=== PATIENT | female | born 1955 | race Caucasian/White ===

== ENCOUNTER → 2018-03-03 10:41 | Outpatient (CLI) | payer OTHER, SELFPAY ==
--- NOTE | 2018-03-03 | DI.RAD.S_ITS ---
PROCEDURE: XR HIP W PEL IF DONE LT 2V INDICATIONS: LEFT HIP PAIN TECHNIQUE: AP pelvis with lateral view(s) of the left hip(s). COMPARISON: [facility], [place], [id number] W PEL IF PERFORMED, 02/18/2017, 11:50. FINDINGS: Bones: No fractures or dislocations. Pelvic ring appears intact. No suspicious bony lesions. The right hip prostheses appear intact. Arthritic disease in the left hip shows considerable interval progression in severity, now near [id number] appearance with increased sclerosis and subcortical cystic changes. Marginal bone spurs are present over the left acetabulum and femoral head. Soft tissues: The visualized bowel gas pattern is normal. No suspicious soft tissue calcifications. IMPRESSION: 1. Considerable progression in degree of left hip joint degeneration, now with third degree. 2. Status post total right hip arthroplasty. Dictated by: Jim Cowan M.D. on 03/03/2018 at 11:30 Approved by: Jim Cowan M.D. on 03/03/2018 at 11:32
== END ==
PROVIDERS: PCP Family Medicine; Visit Provider Family Medicine
DX: M16.12 Unilateral primary osteoarthritis, left hip (principal); M25.552 Pain in left hip; Z96.641 Presence of right artificial hip joint
CPT/HCPCS: 73502

== ENCOUNTER → 2018-04-18 11:02 | Outpatient (CLI) | payer OTHER, SELFPAY ==
[2018-04-18 12:20] LABS: Add Manual Diff / Slide Review NO; Basophils Percent Auto 0.8 % (0-2); Eosinophils Percent Auto 2.3 % (2-4); Hematocrit 36.8 % (36-46); Hemoglobin 12.8 g/dL (12.0-16.0); Lymphocytes Percent Auto 37.8 % (25-40); Mean Corpuscular HGB Conc 34.8 % (30-36); Mean Corpuscular Hemoglobin 30.6 PG (26-34); Mean Corpuscular Volume 87.8 fL (80-100); Monocytes Percent Auto 6.3 % (3-14); Neutrophils Absolute Auto 3000 /uL (3000-5900); Neutrophils Percent Auto 52.8 % (50-75); Platelet Count 211 X10^3/uL (150-400); Red Cell Distribution Width 12.9 % (11.6-14.8); White Blood Cell Count 5.7 X10^3/uL (4.5-11.0)
[2018-04-18 12:42] LABS: Hemoglobin A1C% w Est Avg Glu 5.3 % (4.0-6.0)
[2018-04-18 12:49] LABS: BUN Creatinine Ratio 33.8 (6-22); Blood Urea Nitrogen 27 mg/dL (7-17); Calcium 9.2 mg/dL (8.4-10.2); Carbon Dioxide 28 mmol/L (22-32); Chloride 108 mmol/L (98-107); Estimated Glomerular Filt Rate > 60.0 mL/min (>60); Glucose 90 mg/dL (80-110); HEMOLYSIS < 15 (0-50); Potassium 4.1 mmol/L (3.4-5.1); Sodium 144 mmol/L (137-145)
[2018-04-18 13:06] LABS: Appearance Urine UA CLEAR; Bilirubin Urine UA NEGATIVE (NEGATIVE); Color Urine UA YELLOW; Glucose Urine UA NEGATIVE (Normal); Ketones Urine UA NEGATIVE (NEGATIVE); Leukocyte Esterase Urine UA TRACE (NEGATIVE); Nitrite Urine UA Negative (Negative); Occult Blood Urine UA TRACE-LYSED (Negative); Protein Urine UA NEGATIVE (Negative); Urobilinogen Urine UA 0.2 E.U./dL (0.2)
[2018-04-18 13:44] LABS: RBC Urine 0-1/HPF (0-5/HPF); Squamous Epithelial Cell Urine 1-5 /HPF; WBC Urine 1-5/HPF (0-5/HPF)
[2018-04-18 13:45] LABS: Amorphous Sediment Urine 1+; Bacteria Urine Occasional (0-1); Culture Indicated Urine Specimen Cultured; Mucus Urine 2+ (Negative)
== END ==
PROVIDERS: PCP Family Medicine; Visit Provider Orthopaedic Surgery
DX: Z01.818 Encounter for other preprocedural examination (principal); Z01.812 Encounter for preprocedural laboratory examination; N39.9 Disorder of urinary system, unspecified; R73.09 Other abnormal glucose
CPT/HCPCS: 36415; 80048; 81001; 83036; 85025; 87086; 93005; 93010

== ENCOUNTER 2018-07-05 11:50 | Inpatient (IN) | payer OTHER, SELFPAY ==
[2018-06-22 10:14] VITALS: BMI 38.0
[2018-07-05] VITALS (12 sets, daily range): BP systolic 97–197; BP diastolic 42–89; PULSE 58–70; RESP 10–18; TEMP 36.1–36.9; O2SAT 93–100; BMI 38.0
--- NOTE | 2018-07-05 | DI.RAD.S_ITS ---
PROCEDURE: XR HIP W PEL IF DONE LT 2V INDICATIONS: POST OPERATIVE TOTAL LEFT HIP TECHNIQUE: 2 views of the hip were acquired. COMPARISON: [facility], TAMARA, XR HIP W PEL IF DONE LT 2V, 03/03/2018, 10:28. [facility], [place], [id number] W PEL IF PERFORMED, 02/18/2017, 11:50. FINDINGS: Multilevel degenerative changes of the lumbar spine are noted. Pelvic phleboliths are unchanged from prior exam. Right total hip arthroplasty is unchanged from prior exam. Interval placement of a left total hip arthroplasty without evidence of acute hardware complication. A small volume of subcutaneous emphysema is noted adjacent the proximal left femur and left hip joint consistent with postsurgical change. IMPRESSION: Interval placement of a left total hip arthroplasty without evidence of acute hardware complication. Dictated by: James Wills M.D. on 07/05/2018 at 18:23 Approved by: James Wills M.D. on 07/05/2018 at 18:24
--- NOTE | 2018-07-05 12:10 | DI.RAD.S_ITS ---
PROCEDURE: XR PELVIS 1-2V INDICATIONS: post op TECHNIQUE: Intra-operative views of the pelvis and hip acquired. COMPARISON: [facility], [place], XR PELVIS WITH LATERAL HIP LEFT, 06/27/2018, 11:26. FINDINGS: Bones: Intraoperative devices prior to placement of arthroplasty prostheses are in expected positions. No fractures or suspicious bony lesions. Soft tissues: Overlying surgical retractors are present, along with other intraoperative changes. IMPRESSION: Intraoperative images obtained during the patient's left hip arthroplasty. No fractures are evident. Dictated by: Gabriel García M.D. on 07/05/2018 at 15:53 Approved by: Gabriel García M.D. on 07/05/2018 at 15:54
[2018-07-05] MEDS: ACETAMINOPHEN 325 MG TABLET 975 MG PO ×2 (12:31→20:05)
[2018-07-05] MEDS: PREGABALIN 75 MG CAPSULE PO (12:33)
[2018-07-05] MEDS: MELOXICAM 7.5 MG TABLET 15 MG PO (12:33)
[2018-07-05] MEDS: LACTATED RINGERS 1,000 ML 42 ML IV ×2 (12:33→16:13)
[2018-07-05] MEDS: VANCOMYCIN 1,000 MG/200 ML FROZ.PIGGY 200 MG IV (13:28)
--- NOTE | 2018-07-05 13:44 | PM.PREOP ---
Pre-operative Note Interval Note Pre-op Check: Yes History & Physical Reviewed by Physician and Yes Exam Performed Changes: No
--- NOTE | 2018-07-05 13:44 | PM.OP.1 ---
Operative Date/Time/Diagnoses Date of procedure: 07/05/18 Time of procedure: 15:57 Pre-op diagnosis: left hip arthritis Post-op diagnosis: same Procedure & Clinicians Procedure: Left total hip arthroplasty Same procedure as scheduled: Yes Indications: The patient has had progressively worsening left hip pain with radiographic changes consistent with arthritis. Non-operative management has failed and the patient has requested total hip replacement. The risks, benefits and alternatives to surgery were discussed with the patient prior to proceeding. Risks discussed included, but were not limited to, failure to relieve pain, leg length discrepancy, dislocation, stiffness, infection, nerve damage, deep venous thrombosis, pulmonary embolism, stroke, coma, heart attack, permanent paralysis and , as well as the potential need for eventual revision of the prosthetic. Surgeon: Merly Christianson Printing Machine Operator: Shameka Cruz Click Yes if Unassisted: No Anesthesia Type: General and Spinal Operative Notes Findings: Severe left hip osteoarthritis, adequate stability Closure Type: primary Specimen(s): none sent Implants & Drains: Christianson [employer] Nephew R3 52, neutral poly liner by 36 single 20 mm screw, +0 head, 6 standard offset anthology Applied: drain(s) Estimated Blood Loss (mL): 300 Blood products transfused: none Procedure in detail: The patient was seen in the pre-operative area, where the patient identified the left hip as the operative site and this was marked with my initials. The patient received pre-operative antibiotics and was taken to the operating room and placed on the operative table in the right lateral decubitus position after satisfactory anesthesia. A maritime pilot out was performed. The left leg was prepared from the ankle to the iliac crest with ChloroPrep in the usual fashion and draped through sterile drapes. The hip was approached through an approximately 20 cm incision centered over the greater trochanter and curving gently posteriorly as it went proximally. This was carried sharply to the fascia viet, which was divided and retracted with a self retaining retractor. The trochanteric bursa was excised with care being taken to avoid the sciatic nerve, which was identified and protected throughout the case. The short external rotators were incised and the capsulomuscular flap was raised and tagged for later repair. The hip was dislocated, and a femoral neck osteotomy performed approximately 15 mm above the lesser trochanter. Retractors were placed around the femur. The canal was opened with a box cutting osteotome, followed by a T handled reamer and a lateralizing reamer. The chili pepper broach was then used, followed by sequential broaching until there was good stability of the broach in the femur. Retractors were placed to expose the acetabulum. The labrum and central soft tissues were removed. Reaming was performed initially going up in 2 mm increments, then 1 mm increments until good bite was obtained with an odd sized reamer. The cup 1 mm larger than the last reamer was then inserted using the appropriate anteversion guides. A trial neutral liner was placed. The broach was placed in the canal. A trial head and neck were then placed and the hip relocated and checked for leg length and stability. An intraoperative film confirmed the component position and no evidence of fracture. The patient was stable in the position of sleep, of squatting, and could be put through a range of motion with 45 degrees internal rotation without dislocation. At 90 degrees flexion, internal rotation to 60 ? was possible before dislocation. This was felt to be satisfactory and the appropriate components were opened, and the trials were removed. As the hip was dislocated the femoral component caught the edge of the acetabulum and the acetabulum shifted. The trial components were removed and the acetabulum was reinserted and stabilized with a screw. We did a repeat trial reduction to reconfirm stability and took a 2nd intraoperative x-ray to confirm the position of the components. She had good stability as noted above. The acetabulum was specifically checked and noted to be stable. The acetabular liner was impacted into position. The final stem was then impacted into the prepared femoral canal. A brief Betadine soak was performed while trialing with head options. The hip was meticulously irrigated with normal saline. Finally the femoral head was impacted onto the stem. The acetabulum was cleared of all material and the hip relocated one final time. The capsulomuscular flap was then repaired to the greater trochanter though an awl hole using the tag sutures. The short external rotators were repaired with braided polyethylene suture. A deep drain was placed and brought out anteriorly. The fascia viet was closed with braided polyethylene suture. The subcutaneous layer was closed with barbed sutures and skin clips. A august dressing was applied and the patient was taken to recovery having tolerated the procedure well. Complications: none Condition: stable Disposition: Acute Care Plan for aftercare: The patient will be maintained on a standard total hip replacement protocol with weight bearing as tolerated and posterior hip precautions. The patient will receive Aspirin and sequential compression devices for DVT prophylaxis. The patient will be discharged home when safe for the home environment.
[2018-07-05] MEDS: CEFAZOLIN 2 GM/100 ML FROZ.PIGGY IV ×2 (14:23→22:23)
--- NOTE | 2018-07-05 14:57 | SUR.OPER ---
Lateral on padded OR bed. Gel axillary roll. Arms secured on padded armboard with pillow supporting top arm. Padded hip positioner braces x4 - anterior and posterior chest and pelvis. Additional gel pad used anterior pelvis. Gel pad under bottom leg from knee to foot and secured with tape over sheet.
[2018-07-05] MEDS: BUPIVACAINE 0.25% W/ EPI VIAL 60 ML INJ (15:08)
[2018-07-05] MEDS: SODIUM CHLORIDE IRRIG SOLUTION 250 ML, EPINEPHrine 1 MG IRR (15:09)
[2018-07-05] MEDS: BUPIVACAINE LIPOSOME 266 MG/20 ML VIAL INJ (15:09)
[2018-07-05] MEDS: POVIDONE-IODINE 15 ML, SODIUM CHLORIDE 0.9% 250 ML TOP (15:10)
[2018-07-05] MEDS: TRANEXAMIC ACID 1,000 MG VIAL 1000 MG INJ ×2 (15:11→16:34)
[2018-07-05] MEDS: DOCUSATE 100 MG CAPSULE PO (20:05)
[2018-07-05] MEDS: ASPIRIN EC 81 MG TABLET PO (20:06)
[2018-07-05] MEDS: LACTATED RINGERS 1,000 ML 125 ML IV (20:09)
--- NOTE | 2018-07-05 21:45 | PC.NURSE ---
Pt arrived to RM 208 @ 1800. Alert/awake, denies discomfort. GREG dsg to surgical left hip CDI. IV LR @ 125cc/hr via pump infusing into left hand via pump w/o incidence. Hemavac intact/patent. Stable post op course. Call light w/in reach, bed alarm on for pt safety. Continue w/plan of care.
[2018-07-05] MEDS: OXYCODONE IR 5 MG TABLET PO (22:29)
[2018-07-06] MEDS: IBUPROFEN 600 MG TABLET PO (00:43)
[2018-07-06 03:05] VITALS: BP 111/54; PULSE 70; RESP 20; TEMP 36.7; O2SAT 98
[2018-07-06] MEDS: OXYCODONE IR 5 MG TABLET PO ×2 (04:30→10:32)
[2018-07-06] MEDS: CEFAZOLIN 2 GM/100 ML FROZ.PIGGY IV (05:42)
[2018-07-06] MEDS: LEVOTHYROXINE 125 MCG TABLET PO (05:43)
[2018-07-06 06:19] LABS: Hematocrit 32.6 % (36-46); Hemoglobin 11.1 g/dL (12.0-16.0)
--- NOTE | 2018-07-06 06:58 | PC.NURSE ---
Pt alert and oriented. pt got up to the BSC w/1pa, bed mobility independent. pt rates her pain 4/10, medicated with 5mg of oxycodone. HV intact and compressed, GREG dressing cdi. call light in reach. bed alarm active.
--- NOTE | 2018-07-06 07:40 | PM.PNPO.1 ---
Subjective Date Patient Seen: 07/06/18 Time Patient Seen: 07:40 Interval history: Patient's pain is well controlled. Denies fever chills. No nausea vomiting. Patient has 2 steps into her house. She has brought in a bed for downstairs and she has 6 stairs up to her bed at home. She has not yet received physical therapy. Exam Vital Signs (past 8 hours): - 07/06/18 03:05 Temperature 98.1 F Pulse Rate 70 Respiratory Rate 20 Blood Pressure 111/54 L Pulse Oximetry 98 Oxygen Delivery Method Room Air Narrative Exam Narrative: Pleasant 62-year-old female resting comfortably in bed in no apparent distress. Left hip dressing is clean dry and intact. Neurovascular status is intact to the left lower extremity. Objective Labs Result Diagrams: 07/06/18 05:50 Labs: Laboratory Results - last 24 hr 07/06/18 05:50 Hgb 11.1 L Hct 32.6 L Assessment & Plan Post-op Postoperative Procedures Operation Date: 07/05/18 13:30 Actual Procedures Side Surgeon p Total Hip Arthroplasty Left Merly Adam Christianson MD mobilize with physical therapy. Likely discharge home tomorrow. Posterior hip precautions.
[2018-07-06 07:45] VITALS: BP 130/60; PULSE 69; RESP 16; TEMP 36.6; O2SAT 99
--- NOTE | 2018-07-06 09:33 | PT.IIE ---
Addendum entered and electronically signed by Jil Benjamin PT 07/06/18 13:15: This is to certify that I have reviewed this document and POC Original Note: Current Diagnoses Unilateral primary osteoarthritis, left hip (07/05/18) Surgery Performed Operation Date: 07/05/18 13:30 Actual Procedures p Total Hip Arthroplasty(Left) - Merly Christianson MD Surgical History (Last Updated 06/22/18 @ 10:22 by Mary Huffman, RN) H/O right breast biopsy (Acute) History of colonoscopy with polypectomy (Acute) History of total hip arthroplasty (Acute) Medical History (Last Updated 06/22/18 @ 11:28 by Mary Huffman, RN) Diarrhea (Acute) Hypertension (Acute) Hypothyroid (Acute) LBBB (left bundle branch block) (Acute) Murmur (Acute) Primary localized osteoarthrosis of pelvic region (Acute) Rosacea (Acute) Unilateral primary osteoarthritis, left hip (Acute) Physical Therapy Inpatient Evaluation/Re-Eval M1 PT/OT-IP Prior Functional Status Start: 07/06/18 11:20 Freq: NEEDED Status: Active Protocol: Document 07/06/18 09:33 (Rec: 07/06/18 12:08 [email or web address]) Medical Review Prior Functional Status Medical History Reviewed Yes Communication No deficits noted. Mobility and Gait Pt previously community ambulator including stairs using no AD. Pt independent with driving and self care. Social History Household Members none Living Arrangements House Number of Floors (Floors) Two Floors Number of Stairs To Enter/Railing? 2 steps R rail. In house 6 steps B rails + landing + 6 steps R rail. Pt planning to live entirely on first floor and sponge bathe as full sized bathroom is located on 2nd level. 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 Sister has some physical limitations. 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 M2 PT-IP Current Condition Start: 07/06/18 11:20 Freq: NEEDED Status: Active Protocol: Document 07/06/18 09:33 (Rec: 07/06/18 12:08 [email or web address]) Physical Therapy Current Condition Current Condition Evaluation Date 07/06/18 Treatment Diagnosis L ERIC; difficulty walking Onset Date 07/05/2018 Precautions Posterior Hip Precautions No Hip Flexion > 90 degrees No Hip Internal Rotation No Hip Adduction Weight Bearing Status Weight Bearing Status Weight Bear as Tolerated M3 PT-IP Subjective Start: 07/06/18 11:20 Freq: NEEDED Status: Active Protocol: Document 07/06/18 09:33 (Rec: 07/06/18 12:08 [email or web address]) Subjective Physical Therapy Visit Type Type Initial Evaluation Visit Start Time 09:33 Visit Stop Time 10:44 Total Visit Minutes 41 Number of TATTOO AND BODY ARTIST Visits 0 Physical Therapy Visit Comments Patient Comments Pt agreeable to mobilize with PT. Has already been up to the bathroom with nursing. Patient Goals Plans to go home with her sister at d/c Therapy Pain Assessment Pain When Pain Assessed During Mobility Pain Present Pain Present Pain Reported Location Hip Intensity 3 Scale Used Numeric (1 - 10) Pain Management Techniques Apply Cold Modification of Treatment Re-positioning Timing of Activity with Medications M4 PT-IP Mobility and Gait Start: 07/06/18 11:20 Freq: NEEDED Status: Active Protocol: Document 07/06/18 09:33 (Rec: 07/06/18 12:08 [email or web address]) PT-Bed Mobility Assessment Supine to Sit Supine to Sit Standby Assistance Sit to Supine Sit to Supine Standby Assistance Scooting Scooting to Edge of Bed Standby Assistance PT-Transfer Assessment Sit to and From Stand Sit to and from Stand Contact Guard Assistance Equipment Transfer Assistive Device Gait Belt Front Wheeled Walker Orthotic/Prosthetic Devices or Brace: No Transfers Transfer Destination Bed Chair Transfer Technique Ambulates between surfaces Comments Mobility Comments Pt found in sitting up in recliner. Sit <> stand with fww CGA and min cues for scooting to edge of chair, avoiding walker to push off, and to extend LLE. Pt ambulates to bed side (see below). Sit <> supine is SBA. Gait Assessment Gait Gait Assistance Required: Standby Assistance Distance (Feet) 200 Able to Maintain Weight Bearing Status Yes During Gait Assistive Devices Assistive Device Gait Belt Front Wheeled Walker Orthotic/Prosthetic Devices or Brace: No Gait Deviations General Gait Pattern Antalgic Decreased Stride Length Decreased Feet Clearance Flexed Trunk Factors Limiting Gait Function Factors Limiting Gait Function Decreased Activity Tolerance Decreased Strength Limited Range of Motion Pain Poor Balance Poor Safety Awareness Comments Gait Comments Pt ambulates 15 +200 ft using fww SBA. Gait pattern reveals forward flexed posture and antalgic over LLE and pt takes small, low clearance steps. Pt is able to partially correct gait abnormalities with mod cues. Stair Climbing Assessment Evaluation Level of Assist On Stairs Contact Guard Assistance Devices Stair Climbing Assistive Devices Left Railing Right Railing Technique/Endurance Stair Climbing Direction Ascend and Descend Stair Climbing Technique Step to Step Number of Steps Climbed 3 Query Text: Stair Climbing Set # Repetitions (reps) 4 Comments Stair Climbing Comments Attempt 1: pt up/down 3 steps with B rails CGA and mod cues. Attempt 2: pt is CGA with R rail and mod cues. When turning around at the top of the stairs, pt pivots on LLE breaking hip precautions. Educated in side stepping technique and reminded of precautions. Attempt 3: pt side steps when descending using R rail CGA and max cues needed for technique. Attempt 4: pt side stepping on descent CGA with min cues. PT-Balance Assessment Sitting Balance and Reactions Static Sitting Balance Ability Good Dynamic Sitting Balance Ability Good Standing Balance and Reactions Static Standing Balance Ability Good Dynamic Standing Balance Ability Fair Device Used fww M5 PT-IP Objective Assessments Start: 07/06/18 11:20 Freq: NEEDED Status: Active Protocol: Document 07/06/18 09:33 (Rec: 07/06/18 12:08 [email or web address]) Orientation Orientation/Cognition Level of Alertness Alert Orientation Name Age Birthday Month Date Year Day of Week Place Situation Safety Awareness Decreased Safety Awareness Gross Range of Motion Lower Extremity ROM Assessment Left Impaired Impairments Limited by precaution Strength Lower Extremity Strength Assessment Left Impaired Comments Strength Comments BLE 4-/5 observed with functional ability during sit <> stands. M6 PT-IP Treatment Start: 07/06/18 11:20 Freq: NEEDED Status: Active Protocol: Document 07/06/18 09:33 (Rec: 07/06/18 12:08 [email or web address]) Physical Therapy Treatment Education Education Provided Precautions Weight Bearing Status Post-Op Packet Safety Other Treatments Other Treatment Performed Educated in use of shower chair for sponge bathing. M7 PT-IP Assessment and Plan Start: 07/06/18 11:20 Freq: NEEDED Status: Active Protocol: Document 07/06/18 09:33 (Rec: 07/06/18 12:08 [email or web address]) PT Summary Assessment and Plan Potential Rehabilitation Potential Good Status of Condition at Evaluation Stable Summary Impairments Pain ROM Strength Balance Bed Mobility Transfers Gait Activity Tolerance Progress Towards Goals Progressing Toward Goals Assessment Summary Pt s/p L ERIC with difficulty walking. Pt completed 200 ft ambulation with fww SBA and completed up/down 3 stairs CGA . Pt needs additional training with functional mobiltity to maintain precautions. Once pt progresses mobilities, recommend d/c to home with 24/ 7 assist and f/u OP PT. Goals Bed Mobility Goal Independent Transfer Goal Independent Front Wheeled Walker Gait Goal Standby Assistance Front Wheel Walker Gait Distance 300 Other Goals Up down 3 steps R rail SBA and no cues to maintain precautions. Up down 12 steps R rail CGA as pt desires for ability to access 2nd floor in her home. Frequency of Treatment Frequency Of Treatment Twice a Day Treatment Plan Physical Therapy Treatment Plan Bed Mobility Training Transfer Training Gait Training Therapeutic Exercise Balance Retraining Post Op Education Discharge Planning Hot or Cold Pack Neuromuscular Re-ed Coordination Retraining Manual Therapy Recommendations To Nursing Amount of Assist Needed 1 Person Assist Discharge Recommendations PT Discharge Recommendations Home with 24/7 Assist Outpatient PT
[2018-07-06] MEDS: ASPIRIN EC 81 MG TABLET PO ×2 (09:48→19:26)
[2018-07-06] MEDS: ACETAMINOPHEN 325 MG TABLET 975 MG PO ×3 (09:48→19:26)
[2018-07-06 09:49] VITALS: BP 130/60; PULSE 69
[2018-07-06] MEDS: METOPROLOL ER 50 MG TABLET 100 MG PO (09:49)
[2018-07-06] MEDS: DOCUSATE 100 MG CAPSULE PO ×2 (09:49→19:27)
[2018-07-06] MEDS: SERTRALINE 25 MG TABLET PO (09:49)
--- NOTE | 2018-07-06 11:43 | CM.DANOTE ---
Discharge Planning/Care Management CM Discharge Assessment Start: 07/06/18 11:39 Freq: Status: Active Protocol: Document 07/06/18 11:39 (Rec: 07/06/18 11:42 [id number]) Discharge Planning Assessment Assigned Animal Control Officer DESTIN Spencer Advance Directives? No History Provided By Patient Medical Record Has Patient been admitted in last 30 No days? Prior Living Arrangements Apartment/Condo Household Members none Type of transporation used prior to Drives own vehicle admit Independent with ADL's Yes Is patient alert and oriented? Yes Caregiver for Another No DME Already Rented / Owned FWW / Walker Patient/Family Preference OP PT Therapy Barriers to Discharge No Discharge Plan Home Community Services Physical Therapy Transportation Arrangement Sister will mushroom picker patient at discharge and stay with patient for 12 days. Referrals Initiated None needed Whiteboard Updated in Patient Room with Yes name and ext. # of Animal Control Officer Please Provide Date Initial DC 07/06/18 Assessment Was Performed Next Review Type Continued Stay Review Pre-Anesthesia Assessment Start: 06/22/18 10:14 Freq: Status: Active Protocol: Document 06/22/18 10:14 VLJ (Rec: 06/22/18 10:29 [id number]) Pre-Anesthesia Assessment Patient Also Known As (FILEMON) Amada Patient Information Reviewed Via Chart Review Phone Assessment Assessment Completed With Patient Primary Care Provider Migel Davidson Seen Specialist in Last 12 Months Yes Specialist Seen Emergency Orthopedist Primary Language Somali Delivery Sales Worker Required No Height 168.91 cm Weight 108.409 kg Body Mass Index (BMI) 38.0 Hearing Ability Normal Visual Impairment Partially Limited Visual Assist Glasses Dentition Type Teeth, Natural Present Barriers to Learning Visual Hx Anesthesia Reactions Yes: N&V x2day Hx Family Anesthesia Reaction No Hx Malignant Hyperthermia No Hx Blood Transfusions No Anesthesia Review Requested No Chip 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 No Does patient have SHERIFF/SOB Yes: Sometimes - Going up 20 steps to boat Hx Sleep Apnea No Suspected Sleep Apnea No Currently Taking a Beta Mireya Yes: Metoprolol Can You Climb a Flight of Stairs Without No: Occasionally - climbing 20 SOB stairs to boat Hx Chest Pain No Hx SOB Yes: see above Hx Syncope or Dizziness No Anti-Coagulant Therapy No Has a Freezing Machine Operator No Cardiac Testing Yes: Echo 05/13/09 (LBBB at that time per patient) Hx Pacemaker/ICD No Pacemaker Rep Required? No Cardiac Clearance Received Not Applicable Comment Abn EKG; No work-up needed per PCP 06/22/18 Diet Type At Home Regular dysphagia No Bladder Pattern Nocturia Urinary Catheter Present No Hx Urinary Self Catheterization No Diabetes No Patient No Lactating No Hx Drug Resistant Organism No Presence of External or Internal Medical Yes: Right hip Devices Have you traveled outside the [facility] in the last 30 days? Marital Status Lives With other Prior Living Arrangements Apartment/Condo Number of Floors (Floors) Two Floors Number of Stairs To Enter/Railing? Plans to stay on the ground floor initially (6 steps each level w/handrail) Support System Sibling(s) Does the Patient Have Assistance After Yes Surgery Patient Discharge Plan Description Return Home Comment Sister coming from out-of-town to help her Feels Safe in Current Environment Yes Been Physically Hurt or Threatened By a No Person in Current Environment Do you have thoughts of harming yourself None or others? Are you currently considering suicide? No Do you have a plan to hurt yourself or No Plan others? Comment Wants to go home [facility] Do You Have Any Spiritual Beliefs That No May Affect Your HC Choices? Do You Have Any Cultural Practices That No May Affect Your HC Choices? Comment her equipment operator warehouse will visit Who Can We Speak to About Patient's Care Family & Friends Identifying Code for Release of Patient Declined Information Health Care Proxy/Next of Kin Ambrose Christianson - Brother - traveling nurse Health Care Proxy Phone Number Will provide DOS Emergency Contact Name Akila Ortega - friend Emergency Contact Advance Directives? No: PT NOT HERE Power of Supervisor [place] [employer] Yes Power of Supervisor [place] Name Ambrose Christianson (bro - traveling nurse) health care; Sis Legal- Catarina Jaimes Power of Supervisor [place] Phone Number Ambrose Elmore PAC Instructions Assistance for 24 hours post- op Do not shave/clip surgical site Durable medical equipment Medications to take/avoid Nasal antibiotic No ETOH/petroleum product on skin DOS NPO Ortho class Post-op transportation Pre-op antibiotic Pre-surgical wash Sensory aids Sturdy shoes/comfortable clothes Do not bring valuables and remove jewelry Comment Check-in [phone]
[2018-07-06 12:15] VITALS: BP 126/82; PULSE 66; RESP 16; O2SAT 100
--- NOTE | 2018-07-06 12:54 | PC.NURSE ---
Wound vac discontinued today at 12:15pm. Patient was standing up from chair when the vac container got stuck on chair arm and got pulled off. The rest of the tubing was then pulled out by RN (Sandie) and 2 4X4 gauze with tagaderm was placed on wound. Will continue to assess dressing for drainage.
--- NOTE | 2018-07-06 14:22 | PT.IPTN ---
Current Diagnoses Unilateral primary osteoarthritis, left hip (07/05/18) Surgery Performed Operation Date: 07/05/18 13:30 Actual Procedures p Total Hip Arthroplasty(Left) - Merly Christianson MD Physical Therapy Treatment Note M2 PT-IP Current Condition Start: 07/06/18 11:20 Freq: NEEDED Status: Active Protocol: Document 07/06/18 09:33 (Rec: 07/06/18 12:08 [email or web address]) Physical Therapy Current Condition Current Condition Evaluation Date 07/06/18 Treatment Diagnosis L ERIC; difficulty walking Onset Date 07/05/2018 Precautions Posterior Hip Precautions No Hip Flexion > 90 degrees No Hip Internal Rotation No Hip Adduction Weight Bearing Status Weight Bearing Status Weight Bear as Tolerated M3 PT-IP Subjective Start: 07/06/18 11:20 Freq: NEEDED Status: Active Protocol: Document 07/06/18 14:12 SA (Rec: 07/06/18 14:22 SA [id number]) Subjective Physical Therapy Visit Type Type Treatment Note Visit Start Time 13:00 Visit Stop Time 13:25 Total Visit Minutes 25 Notes Pt's sister present, agreeable to PT. Number of WRAPPING MACHINE OPERATOR Visits 1 Physical Therapy Visit Comments Patient Comments Pt denies significant pain and agreeable to gait and stair training. Therapy Pain Assessment Pain When Pain Assessed During Mobility Pain Present Pain Present Pain Reported Location Hip Intensity 2 Scale Used Numeric (1 - 10) M4 PT-IP Mobility and Gait Start: 07/06/18 11:20 Freq: NEEDED Status: Active Protocol: Document 07/06/18 14:12 SA (Rec: 07/06/18 14:22 [id number]) PT-Bed Mobility Assessment Rolling Type of Rolling Roll to Right Level of Assist Standby Assistance Supine to Sit Supine to Sit Standby Assistance Sit to Supine Sit to Supine Standby Assistance Scooting Scooting to Edge of Bed Standby Assistance PT-Transfer Assessment Sit to and From Stand Sit to and from Stand Contact Guard Assistance Equipment Transfer Assistive Device Gait Belt Front Wheeled Walker Orthotic/Prosthetic Devices or Brace: No Transfers Transfer Destination Bed Transfer Technique Stand Step Pivot Transfer Ability Level of Assist Standby Assistance Comments Mobility Comments Education provided for pateint and her sister for car transfrs and safe teqnique for maintaining hip precautions. Pt receptive to information. Gait Assessment Gait Gait Assistance Required: Standby Assistance Distance (Feet) 200 Able to Maintain Weight Bearing Status Yes During Gait Assistive Devices Assistive Device Gait Belt Front Wheeled Walker Orthotic/Prosthetic Devices or Brace: No Gait Deviations General Gait Pattern Antalgic Decreased Stride Length Decreased Feet Clearance Flexed Trunk Factors Limiting Gait Function Factors Limiting Gait Function Decreased Activity Tolerance Decreased Strength Limited Range of Motion Pain Poor Balance Poor Safety Awareness Comments Gait Comments Gait training in halls to/from stairs with FWW and SBA, min cues for upright posture and even WBing and step length. Stair Climbing Assessment Evaluation Level of Assist On Stairs Contact Guard Assistance Devices Stair Climbing Assistive Devices Left Railing Right Railing Technique/Endurance Stair Climbing Direction Ascend and Descend Stair Climbing Technique Step to Step Number of Steps Climbed 3 Query Text: Stair Climbing Set # Repetitions (reps) 3 Comments Stair Climbing Comments Pt with step to gait pattern and use of B rails, SBA-CGA with Mod cues for safest technique and maitaining hip pecautions. M5 PT-IP Objective Assessments Start: 07/06/18 11:20 Freq: NEEDED Status: Active Protocol: Document 07/06/18 09:33 (Rec: 07/06/18 12:08 [email or web address]) Orientation Orientation/Cognition Level of Alertness Alert Orientation Name Age Birthday Month Date Year Day of Week Place Situation Safety Awareness Decreased Safety Awareness Gross Range of Motion Lower Extremity ROM Assessment Left Impaired Impairments Limited by precaution Strength Lower Extremity Strength Assessment Left Impaired Comments Strength Comments BLE 4-/5 observed with functional ability during sit <> stands. M6 PT-IP Treatment Start: 07/06/18 11:20 Freq: NEEDED Status: Active Protocol: Document 07/06/18 14:12 (Rec: 07/06/18 14:22 [id number]) Physical Therapy Treatment Education Education Provided Precautions Weight Bearing Status Post-Op Packet Safety Other Treatments Other Treatment Performed Car transfer and bed mobility (within hip precations) education for patient and her sister. M7 PT-IP Assessment and Plan Start: 07/06/18 11:20 Freq: NEEDED Status: Active Protocol: Document 07/06/18 14:12 (Rec: 07/06/18 14:22 [id number]) PT Summary Assessment and Plan Frequency of Treatment Frequency Of Treatment Twice a Day Recommendations To Nursing Amount of Assist Needed 1 Person Assist Discharge Recommendations PT Discharge Recommendations Home with 24/7 Assist Outpatient PT
[2018-07-06 15:52] VITALS: BP 145/70; PULSE 62; RESP 18; TEMP 36.6; O2SAT 95
[2018-07-06 19:48] VITALS: BP 152/87; PULSE 80; RESP 20; TEMP 36.5; O2SAT 99
[2018-07-07 00:05] VITALS: BP 143/85; PULSE 62; RESP 18; TEMP 36.8; O2SAT 96
[2018-07-07] MEDS: IBUPROFEN 600 MG TABLET PO ×2 (00:17→06:28)
[2018-07-07] MEDS: LEVOTHYROXINE 125 MCG TABLET PO (06:28)
[2018-07-07 06:40] VITALS: BP 147/77; PULSE 62; RESP 18; TEMP 36.4; O2SAT 99
[2018-07-07 07:20] VITALS: BP 144/83; PULSE 64; RESP 16; TEMP 36.8; O2SAT 95
[2018-07-07] MEDS: ACETAMINOPHEN 325 MG TABLET 975 MG PO (09:02)
[2018-07-07] MEDS: ASPIRIN EC 81 MG TABLET PO (09:04)
[2018-07-07] MEDS: DOCUSATE 100 MG CAPSULE PO (09:04)
[2018-07-07] MEDS: POLYETHYLENE GLYCOL 3350 17 GM POWD.PACK PO (09:05)
[2018-07-07] MEDS: METOPROLOL ER 50 MG TABLET 100 MG PO (09:05)
[2018-07-07] MEDS: SERTRALINE 25 MG TABLET PO (09:05)
--- NOTE | 2018-07-07 09:20 | PM.DS.1 ---
History of Present Illness Date Patient Seen: 07/07/18 Time Patient Seen: 09:20 Chief complaint: total hip arthroplasty left [id number] Narrative: The patient has had progressively worsening left hip pain with radiographic changes consistent with arthritis. Non-operative management has failed and the patient has requested total hip replacement. The risks, benefits and alternatives to surgery were discussed with the patient prior to proceeding. Risks discussed included, but were not limited to, failure to relieve pain, leg length discrepancy, dislocation, stiffness, infection, nerve damage, deep venous thrombosis, pulmonary embolism, stroke, coma, heart attack, permanent paralysis and , as well as the potential need for eventual revision of the prosthetic. Discharge Providers Date of admission: 07/05/18 11:50 Primary care physician: Migel Davidson MD Consults: 07/05/18 12:10 Consult to Anesthesiology Routine Comment: Consulting Provider: Anesthesiologist Reason for consultation: Regional block for post operative pain control 07/05/18 18:07 Consult to Discharge Planning Routine Comment: Consult to Physical Therapy Evaluate & Treat Comment: Physician Instructions: post op ERIC protocol Consult to Respiratory Therapy Evaluate & Treat Comment: Physician Instructions: Evaluate and treat Discharge provider: Rosina Dixon PA-C Discharge Date: 07/07/18 Summary Discharge Diagnosis: s/p left total hip arthroplasty Hospital Course: Amada was admitted for left total hip arthroplasty with Dr. Christianson, and she consented to procedure. Hospital course was unremarkable. On postop day 2. Patient was feeling well and ready to go home. She is up and ambulating with physical therapy. Pain was well controlled with oxycodone, Tylenol, and ibuprofen. She is eating and voiding without difficulty or assistance. Calves are soft, compressible, nontender bilaterally. Status at Discharge Functional status at discharge: uses cane/walker Exam Vital Signs (past 8 hours): - 07/07/18 06:40 07/07/18 07:20 Temperature 97.6 F 98.2 F Pulse Rate 62 64 Respiratory Rate 18 16 Blood Pressure 147/77 H 144/83 H Pulse Oximetry 99 95 Oxygen Delivery Method Room Air Oxygen Flow Rate 0 Narrative Exam Narrative: Patient lying in bed in no acute distress. She is alert and oriented x3. Calves are soft, compressible, nontender bilaterally. Pulses are symmetrical. Sensation intact to light touch throughout bilateral lower extremities. Her pain is well controlled, and she has all her pain medications at home already. She is aware of posterior hip precautions. ASA will be used for DVT prophylaxis. Objective Labs Result Diagrams: 07/06/18 05:50 Discharge Plan Discharge Plan Patient Disposition: Home Discharge comment: DC home today Discharge Med Rec/Prescriptions Prescriptions: New acetaminophen 325 mg Tablet 975 mg PO TID Qty: 60 RF: 0 docusate sodium 100 mg Capsule 100 mg PO BID Qty: 60 RF: 0 Continue sertraline 25 MG tablet 25 mg PO QDAY Qty: 0 RF: 0 meloxicam 15 mg Tablet 15 mg PO DAILY PRN (Reason: Pain) RF: 0 metoprolol succinate 100 mg Tablet Extended Release 24 Hr 100 mg PO DAILY RF: 0 levothyroxine 125 mcg Tablet 125 mcg PO DAILY RF: 0 Changed aspirin 81 mg Tablet,Chewable 81 mg PO BID Qty: 0 RF: 0 Follow up/Referrals: Merly Christianson MD [Physician] - (Follow up in 5-7 days at [facility] [place] with ANTON) Provider Discharge Instructions Diet: Diet as Tolerated Activity: Posterior hip precautions Skin/Wound/Dressing Care Report to your healthcare provider any signs of infection, such as:: chills, fever and increased pain Dressing: Leave in place for 10-14 days Visit Report/Discharge Packet Instructions: DI for Hip Replacement Discharge Data Primary Care Provider: Migel Davidson Attending Provider: Merly Christianson Admit Date/Time: 07/05/18 11:50
--- NOTE | 2018-07-07 11:52 | PT.IPTN ---
Current Diagnoses Unilateral primary osteoarthritis, left hip (07/05/18) Surgery Performed Operation Date: 07/05/18 13:30 Actual Procedures p Total Hip Arthroplasty(Left) - Merly Christianson MD Physical Therapy Treatment Note M2 PT-IP Current Condition Start: 07/06/18 11:20 Freq: NEEDED Status: Active Protocol: Document 07/06/18 09:33 (Rec: 07/06/18 12:08 [email or web address]) Physical Therapy Current Condition Current Condition Evaluation Date 07/06/18 Treatment Diagnosis L ERIC; difficulty walking Onset Date 07/05/2018 Precautions Posterior Hip Precautions No Hip Flexion > 90 degrees No Hip Internal Rotation No Hip Adduction Weight Bearing Status Weight Bearing Status Weight Bear as Tolerated M3 PT-IP Subjective Start: 07/06/18 11:20 Freq: NEEDED Status: Active Protocol: Document 07/07/18 11:45 SA (Rec: 07/07/18 11:52 SA [id number]) Subjective Physical Therapy Visit Type Type Treatment Note Visit Start Time 08:40 Visit Stop Time 09:05 Total Visit Minutes 25 Notes Pt just finished breakfast and ready for PT. Number of UTILITY SYSTEM OPERATOR Visits 2 Physical Therapy Visit Comments Patient Comments Pt rates pain as mild and tolerable. Therapy Pain Assessment Pain When Pain Assessed During Mobility Pain Present Pain Present Pain Reported Location Hip Intensity 2 Scale Used Numeric (1 - 10) Pain Management Techniques Apply Cold Modification of Treatment Re-positioning Timing of Activity with Medications M4 PT-IP Mobility and Gait Start: 07/06/18 11:20 Freq: NEEDED Status: Active Protocol: Document 07/07/18 11:45 SA (Rec: 07/07/18 11:52 SA [id number]) PT-Bed Mobility Assessment Rolling Type of Rolling Roll to Right Level of Assist Standby Assistance Supine to Sit Supine to Sit Standby Assistance Sit to Supine Sit to Supine Standby Assistance Scooting Scooting to Edge of Bed Standby Assistance PT-Transfer Assessment Sit to and From Stand Sit to and from Stand Standby Assistance Equipment Transfer Assistive Device Gait Belt Front Wheeled Walker Orthotic/Prosthetic Devices or Brace: No Transfers Transfer Destination Bed Transfer Technique Stand Step Pivot Transfer Ability Level of Assist Standby Assistance Comments Mobility Comments Pt demonstrates good safety awareness and use of FWW. Min cues for shifting WBing to LLE vs UEs. Gait Assessment Gait Gait Assistance Required: Standby Assistance Distance (Feet) 300 Able to Maintain Weight Bearing Status Yes During Gait Assistive Devices Assistive Device Gait Belt Front Wheeled Walker Orthotic/Prosthetic Devices or Brace: No Gait Deviations General Gait Pattern Antalgic Decreased Stride Length Decreased Feet Clearance Flexed Trunk Factors Limiting Gait Function Factors Limiting Gait Function Decreased Activity Tolerance Decreased Strength Limited Range of Motion Comments Gait Comments Gait training in halls with FWW and SBA for 300 feet with steady pace and ability ro self correct posture and step length. Stair Climbing Assessment Evaluation Level of Assist On Stairs Standby Assistance Devices Stair Climbing Assistive Devices Right Railing Technique/Endurance Stair Climbing Direction Ascend and Descend Stair Climbing Technique Step to Step Number of Steps Climbed 3 Query Text: Stair Climbing Set # Repetitions (reps) 4 Comments Stair Climbing Comments Pt with step to gait pattern and SBA, tolerated forward position on descent with use of single rail. M5 PT-IP Objective Assessments Start: 07/06/18 11:20 Freq: NEEDED Status: Active Protocol: Document 07/06/18 09:33 (Rec: 07/06/18 12:08 [email or web address]) Orientation Orientation/Cognition Level of Alertness Alert Orientation Name Age Birthday Month Date Year Day of Week Place Situation Safety Awareness Decreased Safety Awareness Gross Range of Motion Lower Extremity ROM Assessment Left Impaired Impairments Limited by precaution Strength Lower Extremity Strength Assessment Left Impaired Comments Strength Comments BLE 4-/5 observed with functional ability during sit <> stands. M6 PT-IP Treatment Start: 07/06/18 11:20 Freq: NEEDED Status: Active Protocol: Document 07/07/18 11:45 SA (Rec: 07/07/18 11:52 [id number]) Physical Therapy Treatment Education Education Provided Precautions Weight Bearing Status Post-Op Packet Safety Other Treatments Other Treatment Performed Review of HEP and pt to have OP PT next week. Probable d/c today. M7 PT-IP Assessment and Plan Start: 07/06/18 11:20 Freq: NEEDED Status: Active Protocol: Document 07/07/18 11:45 SA (Rec: 07/07/18 11:52 [id number]) PT Summary Assessment and Plan Frequency of Treatment Frequency Of Treatment Twice a Day Recommendations To Nursing Amount of Assist Needed 1 Person Assist Discharge Recommendations PT Discharge Recommendations Home with 24/7 Assist Outpatient PT
--- NOTE | 2018-07-07 12:41 | CM.DPC ---
DCP/discharge Patient to discharge home today with OP PT. Met with patient: patient agreeable to discharge and has no concerns. Sister was on way to lease picker patient. Plan: Discharge home today with supportive family and OP PT.
== END 2018-07-07 13:16 | disposition home or self-care (01) | DRG 470 ==
PROVIDERS: Admitting Provider Orthopaedic Surgery; PCP Family Medicine; Visit Provider Orthopaedic Surgery
PROC: 0SRB0JZ Replacement of Left Hip Joint with Synthetic Substitute, Open Approach (ICD-10-PCS; CPT 27130; principal; 2018-07-05 13:30)
DX: M16.12 Unilateral primary osteoarthritis, left hip (principal); Z96.651 Presence of right artificial knee joint; E66.9 Obesity, unspecified; I10 Essential (primary) hypertension; Z68.38 Body mass index [BMI] 38.0-38.9, adult; E03.9 Hypothyroidism, unspecified
CPT/HCPCS: 36415; 72170; 73502; 85014; 85018; 97116; 97161; 97530; C1776; C9290; J0171; J0360; J0690; J1100; J2250; J2405; J2704; J3010; J3370

== ENCOUNTER → 2018-08-12 14:39 | Outpatient (CLI) | payer OTHER, SELFPAY ==
[2018-07-05 18:14] VITALS: BMI 38.0
--- NOTE | 2018-08-12 | DI.MG.S_ITS ---
BILATERAL DIGITAL SCREENING MAMMOGRAM 3D/2D WITH CAD: 08/12/2018 CLINICAL: Routine screening. Comparison is made to exams dated: 09/04/2016 mammogram, 08/15/2015 mammogram, and 08/07/2014 mammogram - [facility]. There are scattered fibroglandular elements in both breasts. Current study was also evaluated with a Computer Aided Detection (CAD) system. There is a benign biopsy clip in the right breast. No significant masses, calcifications, or other findings are seen in either breast. There has been no significant interval change. IMPRESSION: NEGATIVE There is no mammographic evidence of malignancy. A 1 year screening mammogram is recommended. This exam was interpreted at Station ID: [id number]. NOTE: For mammograms, a report in lay terms will be sent to the patient. Approximately 15% of breast malignancies will not be visualized mammographically. In the management of a palpable breast mass, a negative mammogram must not discourage biopsy of a clinically suspicious lesion. Electronically Signed By: Fang willoughby/tao:08/12/2018 15:00:47 copy to: MICHAEL SANTIAGO letter sent: Normal Exam ACR BI-RADS Category 1: Negative [id number]
== END ==
PROVIDERS: PCP Family Medicine; Visit Provider Family Medicine
DX: Z12.31 Encounter for screening mammogram for malignant neoplasm of breast (principal)
CPT/HCPCS: 77063; 77067

== ENCOUNTER → 2019-09-27 13:45 | Outpatient (CLI) | payer OTHER, SELFPAY ==
[2018-07-05 18:14] VITALS: BMI 38.0
--- NOTE | 2019-09-27 | DI.MG.S_ITS ---
BILATERAL DIGITAL SCREENING MAMMOGRAM 3D/2D WITH CAD: 09/27/2019 CLINICAL: Routine screening. Comparison is made to exams dated: 08/12/2018 mammogram, 09/04/2016 mammogram, and 08/15/2015 mammogram - [facility]. There are scattered fibroglandular elements in both breasts. Current study was also evaluated with a Computer Aided Detection (CAD) system. There is a biopsy clip in the right breast. No significant masses, calcifications, or other findings are seen in either breast. There has been no significant interval change. IMPRESSION: NEGATIVE There is no mammographic evidence of malignancy. A 1 year screening mammogram is recommended. This exam was interpreted at Station ID: [id number]. NOTE: For mammograms, a report in lay terms will be sent to the patient. Approximately 15% of breast malignancies will not be visualized mammographically. In the management of a palpable breast mass, a negative mammogram must not discourage biopsy of a clinically suspicious lesion. Electronically Signed By: Baljit rose/tao:09/27/2019 17:12:50 copy to: MICHAEL SANTIAGO letter sent: Normal Exam ACR BI-RADS Category 1: Negative [id number]
== END ==
PROVIDERS: PCP Student in an Organized Health Care Education/Training Program; Referring Provider Student in an Organized Health Care Education/Training Program; Visit Provider Student in an Organized Health Care Education/Training Program
DX: Z12.31 Encounter for screening mammogram for malignant neoplasm of breast (principal)
CPT/HCPCS: 77063; 77067

== ENCOUNTER → 2021-02-20 11:04 | Outpatient (CLI) | payer OTHER, SELFPAY ==
[2018-07-05 18:14] VITALS: BMI 38.0
== END ==
PROVIDERS: PCP Student in an Organized Health Care Education/Training Program; Referring Provider Student in an Organized Health Care Education/Training Program; Visit Provider Student in an Organized Health Care Education/Training Program
DX: Z78.0 Asymptomatic menopausal state (principal)
CPT/HCPCS: 77080; 77081

== ENCOUNTER → 2021-09-11 16:00 | Outpatient (CLI) | payer OTHER, SELFPAY ==
[2018-07-05 18:14] VITALS: BMI 38.0
--- NOTE | 2021-09-11 | DI.MG.S_ITS ---
BILATERAL DIGITAL SCREENING MAMMOGRAM 3D/2D WITH CAD: 09/11/2021 CLINICAL: Routine screening. Comparison is made to exams dated: 09/27/2019 mammogram, 08/12/2018 mammogram, and 09/04/2016 mammogram - [facility]. There are scattered fibroglandular elements in both breasts. Current study was also evaluated with a Computer Aided Detection (CAD) system. There is a biopsy clip in the right breast. No significant masses, calcifications, or other findings are seen in either breast. There has been no significant interval change. IMPRESSION: NEGATIVE There is no mammographic evidence of malignancy. A 1 year screening mammogram is recommended. This exam was interpreted at Station ID: [id number]. NOTE: For mammograms, a report in lay terms will be sent to the patient. Approximately 15% of breast malignancies will not be visualized mammographically. In the management of a palpable breast mass, a negative mammogram must not discourage biopsy of a clinically suspicious lesion. Electronically Signed By: Baljit rose/tao:09/11/2021 16:39:43 copy to: MICHAEL SANTIAGO letter sent: Normal Exam ACR BI-RADS Category 1: Negative [id number]
== END ==
PROVIDERS: PCP Student in an Organized Health Care Education/Training Program; Referring Provider Student in an Organized Health Care Education/Training Program; Visit Provider Student in an Organized Health Care Education/Training Program
DX: Z12.31 Encounter for screening mammogram for malignant neoplasm of breast (principal)
CPT/HCPCS: 77063; 77067

== ENCOUNTER → 2021-09-18 12:05 | Outpatient (CLI) | payer OTHER, SELFPAY ==
[2018-07-05 18:14] VITALS: BMI 38.0
--- NOTE | 2021-09-18 12:08 | DI.RAD.S_ITS ---
PROCEDURE: XR LUMBAR SPINE 2-3V INDICATIONS: BACK PAIN TECHNIQUE: 2 views of the lumbar spine were acquired. COMPARISON: None. FINDINGS: Bones: 5 [id number] vertebrae are present. There is 9 mm anterolisthesis of L4 on L5. Degenerative endplate changes and bilateral facet arthrosis throughout lumbar spine is seen more prominent at L4-5 and L5-S1 levels. No vertebral body compression fractures. No suspicious bony lesions. Soft tissues: Overlying bowel gas pattern is normal. No suspicious soft tissue calcifications. IMPRESSION: 9 mm anterolisthesis of L4 on L5. No acute compression fracture. Degenerative disc disease throughout lumbar spine as above. Dictated by: Juanito Mccarthy M.D. on 09/18/2021 at 14:33 Approved by: Juanito Mccarthy M.D. on 09/18/2021 at 14:33
== END ==
PROVIDERS: PCP Student in an Organized Health Care Education/Training Program; Referring Provider Student in an Organized Health Care Education/Training Program; Visit Provider Student in an Organized Health Care Education/Training Program
DX: M47.816 Spondylosis without myelopathy or radiculopathy, lumbar region (principal); M47.817 Spondylosis without myelopathy or radiculopathy, lumbosacral region; M43.16 Spondylolisthesis, lumbar region; M54.51 Vertebrogenic low back pain
CPT/HCPCS: 72100

== ENCOUNTER → 2022-09-12 11:21 | Outpatient (CLI) | payer OTHER, SELFPAY ==
[2022-09-03 15:16] VITALS: BMI 38.0
--- NOTE | 2022-09-12 | DI.MG.S_ITS ---
BILATERAL DIGITAL SCREENING MAMMOGRAM 3D/2D WITH CAD: 09/12/2022 CLINICAL: Routine screening. Comparison is made to exams dated: 09/11/2021 mammogram, 09/27/2019 mammogram, and 08/12/2018 mammogram - [facility]. There are scattered areas of fibroglandular density in both breasts (category b / 25%-50% glandular tissue). Current study was also evaluated with a Computer Aided Detection (CAD) system. There is a biopsy clip in the right breast. No significant masses, calcifications, or other findings are seen in either breast. There has been no significant interval change. IMPRESSION: NEGATIVE There is no mammographic evidence of malignancy. A 1 year screening mammogram is recommended. Based on the Tyrer Cuzick model (a risk assessment model) the patient's lifetime risk is 4.8% and her 10 year risk is 2.5%. According to the ACR, ACS, and NCCN guidelines, an annual breast MRI exam along with mammogram is recommended if the patient's lifetime risk is 20% or greater. This exam was interpreted at Station ID: [id number]. NOTE: For mammograms, a report in lay terms will be sent to the patient. Approximately 15% of breast malignancies will not be visualized mammographically. In the management of a palpable breast mass, a negative mammogram must not discourage biopsy of a clinically suspicious lesion. Electronically Signed By: Baljit rose/tao:09/14/2022 02:36:02 copy to: MICHAEL SANTIAGO letter sent: Normal Exam ACR BI-RADS Category 1: Negative [id number]
== END ==
PROVIDERS: PCP Family Medicine; Referring Provider Family Medicine; Visit Provider Family Medicine
DX: Z12.31 Encounter for screening mammogram for malignant neoplasm of breast (principal)
CPT/HCPCS: 77063; 77067

== ENCOUNTER → 2023-01-21 10:18 | Outpatient (CLI) | payer OTHER, SELFPAY ==
[2022-09-03 15:16] VITALS: BMI 38.0
--- NOTE | 2023-01-21 | DI.ECHO.S_ITS ---
[facility]---------+ [facility] +---------+ : : [address] : : : : [id number] : : : : Phone: [phone]---------+ Echocardiogram Report + + :Name: NOA ROBLES Study Date: 01/21/2023 Height: 65 in : :[facility] ReadingLocation: Weight: 217 lb : : Gender: Female BSA: 2.0 m2 : :: 1955 Age: 67 yrs BP: 131/88 mmHg: :Reason For Study: Cardiac Murmur : :Ordering Physician: Moraima, : :Kate Performed By: Mirtha So : :Referring: KATE LEE : + + Interpretation Summary The study quality was technically adequate. The left ventricle is normal in size. Left ventricular systolic function appears normal without focal wall motion abnormalities. The ejection fraction is estimated to be 60-65%. Diastolic parameters suggest a relaxation abnormality of the left ventricle, consistent with probable normal filling pressures. The right ventricle is normal size. The right ventricular systolic function is normal. The right ventricular systolic pressure is estimated to be at least 27 mmHg based on an estimated right atrial pressure of 3 mm Hg. The left atrium is mildly dilated. Right atrial size is normal. There is no significant valvular heart disease. The ascending aorta is mildly enlarged. Procedure: A two-dimensional transthoracic echocardiogram with color flow and Doppler was performed. The study quality was technically adequate. There is no prior echocardiogram noted for this patient. The patient was in normal sinus rhythm during the exam. Frequent pauses in heart rhythm. Left Ventricle: The left ventricle is normal in size. Left ventricular wall thickness is mildly increased. Left ventricular systolic function appears normal without focal wall motion abnormalities. The ejection fraction is estimated to be 60-65%. Diastolic parameters suggest a relaxation abnormality of the left ventricle, consistent with probable normal filling pressures. Right Ventricle: The right ventricle is normal size. The right ventricular systolic function is normal. Atria: The left atrium is mildly dilated. Right atrial size is normal. There is no Doppler evidence for an interatrial shunt. Mitral Valve: The mitral valve leaflets appear borderline thickened, but open well. There is mild mitral annular calcification. There is no mitral valve stenosis. There is trace mitral regurgitation. Aortic Valve: The aortic valve is trileaflet. The aortic valve opens well. There is no aortic valve stenosis. There is trace aortic regurgitation. Tricuspid Valve: The tricuspid valve is normal. There is no tricuspid stenosis. There is mild tricuspid regurgitation. The right ventricular systolic pressure is estimated to be at least 27 mmHg based on an estimated right atrial pressure of 3 mm Hg. Pulmonic Valve: The pulmonic valve leaflets are thin and pliable; valve motion is normal. There is no pulmonic valvular stenosis. There is trace pulmonic regurgitation. There is no significant valvular heart disease. Great Vessels: The aortic root is normal size. The ascending aorta is mildly enlarged. The pulmonary artery is normal size. The IVC is of normal diameter and collapses greater than 50% with a sniff. This suggests a low right atrial pressure of 3 mm Hg. Pericardium/ Pleura There is no pericardial effusion. There is no pleural effusion. MMode/2D Measurements & Calculations LVIDd: 4.0 cm LVOT diam: 1.8 cm LVIDs: 2.9 cm Ao root diam: 3.4 cm FS: 27.5 % asc Aorta Diam: 3.9 cm EPSS: 1.0 cm IVSd: 1.2 cm LVPWd: 1.5 cm LV moore. diameter/BSA (cm/m^2): 2.0 LV sys. diameter/BSA (cm/m^2): 1.4 LA A2 area: 20.7 cm2 RA long axis: 5.1 cm LA A4 area: 20.7 cm2 RA area: 15.7 cm2 LA length (vol): 5.6 cm RA vol: 40.7 ml LA vol: 65.2 ml RA : 19.9 ml/m2 LA vol index: 31.8 ml/m2 RVD1 (basal): 3.6 cm LVLs ap4: 6.1 cm LVLd ap2: 7.1 cm TAPSE_phl: 2.7 cm LVLs ap2: 6.0 cm Doppler Measurements & Calculations Ao V2 max: 182.0 cm/sec LVOT Max Laci: 147.0 cm/sec Ao V2 mean: 136.0 cm/sec LV V1 max P.6 mmHg Ao max P.0 mmHg LV V1 VTI: 33.2 cm Ao mean P.0 mmHg KIMMIE(I,D): 1.8 cm2 Ao V2 VTI: 45.9 cm KIMMIE(V,D): 2.1 cm2 sev ratio: 0.72 KIMMIE indexed to BSA (cm^2/m^2): 0.90 MV E max laci: 72.9 cm/sec TR max laci: 247.3 cm/sec MV A max laci: 95.5 cm/sec TR max P.5 mmHg MV E/A: 0.76 PA V2 max: 98.6 cm/sec Med Peak E' Laci: 5.2 cm/sec PA V2 mean: 67.3 cm/sec E/E' med: 14.0 PA mean P.0 mmHg Lat Peak E' Laci: 6.8 cm/sec PA pr(Accel): 37.6 mmHg E/E' lat: 10.8 E/e' average: 12.4 MV dec time: 0.33 sec SV(LVOT): 84.5 ml AV VR_phl: 0.81 KIMMIE(VTI)/BSA_phl: 0.90 Reading Physician:06:57 PM
== END ==
PROVIDERS: PCP Family Medicine; Referring Provider Family Medicine; Visit Provider Family Medicine
DX: R01.1 Cardiac murmur, unspecified (principal); I51.7 Cardiomegaly
CPT/HCPCS: 93306

== ENCOUNTER → 2023-04-13 12:46 | Outpatient (CLI) | payer OTHER, SELFPAY ==
[2022-09-03 15:16] VITALS: BMI 38.0
--- NOTE | 2023-04-13 | DI.RAD.S_ITS ---
Bone Density Report Name: NOA ROBLES Age: 67 Sex: Female Ethnicity: White Date of : 1955 Indication: postmenopausal; screening for osteoporosis; Referring Provider: RISA LEE Study: Bone densitometry was performed. Exam Date: April 13, 2023 Accession number: [id number] Bone Density: Region BMD T-score Z-score Classification AP Spine(L1, L2, L4) 1.049 0.1 2.1 Normal Total Forearm (Left) 0.587 0.2 1.9 Normal 1/3 Forearm (Left) 0.668 -0.4 1.4 Normal UD Forearm (Left) 0.564 2.1 3.4 Normal World Health Organization criteria for BMD impression classify patients as: Normal (T-score at or above -1.0), Osteopenia (T-score between -1.0 and -2.5), or Osteoporosis (T-score at or below -2.5). Previous Exams: -- Region Exam Age BMD T-score BMD Change BMD Change Date g/cm2 vs Baseline vs Previous -- AP Spine (L1-L2,L4) 04/13/2023 67 1.049 0.1 -0.013 (-1.2%)# -0.013 (-1.2%)# 02/20/2021 65 1.062 0.3 -- *Denotes significance at 95% confidence level, LSC for AP Spine = 0.022 g/cm2 # Denotes dissimilar scan types or analysis methods Impression: The patient has normal bone mass. No significant bone loss was observed. Discussion: LOW RISK OF FRACTURE; BONE DENSITY IS WELL ABOVE THE MINIMUM DESIRABLE LEVEL AND ABOVE AVERAGE FOR AGE AND SEX AT ALL SKELETAL SITES TESTED. This person's bone density is above expected limits for age and sex. This is rarely clinically significant, but should be pursued if there are significant musculoskeletal complaints. The patient should follow a healthful lifestyle (good nutrition with adequate calcium and vitamin D, and appropriate weight-bearing exercise). Follow-Up: Consider repeating this study in 5 years or sooner if there is some new clinical indication. Reported by: KENNY BRUNO M.D. on 04/13/2023 1:15:00 PM.
== END ==
PROVIDERS: PCP Family Medicine; Referring Provider Family Medicine; Visit Provider Family Medicine
DX: Z78.0 Asymptomatic menopausal state (principal); Z13.820 Encounter for screening for osteoporosis
CPT/HCPCS: 77080; 77081

== ENCOUNTER → 2023-06-21 09:59 | Outpatient (CLI) | payer OTHER, SELFPAY ==
[2022-09-03 15:16] VITALS: BMI 38.0
--- NOTE | 2023-06-21 | DI.NM.S_ITS ---
PROCEDURE: NM TABITHA PERF SPECT R&S PHARM Rest and pharmacological stress myocardial perfusion SPECT with gated imaging and ejection fraction RADIOPHARMACEUTICAL: 25 mCi Tc-99m tetrafosmin IV at rest and 25.3 mCi Tc-99m tetrafosmin IV at peak effect of pharmacological stress. Vbo-mwu-htpovuah was performed. INDICATIONS: CHEST PAIN TECHNIQUE: Radiopharmaceutical was injected at peak stress test, and also at rest. SPECT images were obtained. SPECT myocardial perfusion images were displayed in short axis, horizontal long axis, and vertical long axis views. Gated images were reviewed using [employer] software. COMPARISON: None. CARDIAC STRESS: A pharmacologic stress test was performed under the supervision of an attending staff, using an infusion of regadenoson 0.4 mg IV. Hemodynamic data: There is normal blood pressure and heart rate response to pharmacologic stress. Symptoms: The patient denied anginal chest pain. EKG: Atrial fibrillation, LBBB. FINDINGS: Raw data: There is good myocardial uptake of radiotracer. No significant motion artifacts. Ynfm-xq-earca ratio is 0.48 (normal is less than 0.38 for tetrafosmin tracer). Left ventricle function: No transient ischemic dilation; TID is 0.94 (normal less than 1.3). Left ventricle resting end diastolic volume is 124 mL. Left ventricle stress ejection fraction and wall motion are inaccurate due to atrial fibrillation and LBBB. Myocardial perfusion: There is a small size, mild intensity fixed inferoapical wall defect that appears better on the prone images but does not completely resolve. No reversible perfusion defects. IMPRESSION: Likely low risk study. No evidence of pharmacologic induced ischemia. Cannot rule out old small inferoapical infarct. Gated imaging is inaccurate due to atrial fibrillation and LBBB. Dictated by: Dora Alvarado D.O. on 06/22/2023 at 16:20 Approved by: Dora Alvarado D.O. on 06/22/2023 at 16:24
== END ==
PROVIDERS: PCP Family Medicine; Referring Provider Family Medicine; Visit Provider Family Medicine
DX: R07.9 Chest pain, unspecified (principal); I48.91 Unspecified atrial fibrillation; I44.7 Left bundle-branch block, unspecified
CPT/HCPCS: 78452; 93017; A9502; J2785

== ENCOUNTER → 2023-07-22 09:39 | Outpatient (CLI) | payer OTHER, SELFPAY ==
[2022-09-03 15:16] VITALS: BMI 38.0
--- NOTE | 2023-07-22 | DI.RAD.S_ITS ---
PROCEDURE: XR CHEST 2V INDICATIONS: SHERIFF TECHNIQUE: 2 views of the chest were acquired. COMPARISON: [facility], , CHEST 2 VIEW, 10/04/2006, 12:44. FINDINGS: Surgical changes and devices: None. Lungs and pleura: Diffuse perihilar peribronchial thickening and interstitial prominence. Possible early perivascular opacity in the right lower lobe. No pleural effusion or pneumothorax. Mediastinum: The heart is enlarged, increased compared to the prior exam. Central vasculature is not congested. Aortic contour is normal. Bones and chest wall: No suspicious bone lesions. Severe degeneration of the right acromioclavicular joint. IMPRESSION: 1. Perihilar peribronchial thickening bilaterally may indicate acute or chronic bronchitis, chronic interstitial edema, reactive airways disease. 2. Right lower lobe perivascular opacity, potentially early pneumonia versus consolidation of bronchovascular structures. Consider follow-up radiograph in 2-4 weeks. 3. Increasing cardiomegaly. Dictated by: Veronica Braga M.D. on 07/22/2023 at 14:38 Approved by: Veronica rBaga M.D. on 07/22/2023 at 14:40
[2023-07-22 10:58] LABS: Add Manual Diff / Slide Review NO; Basophils Absolute Auto 0 /uL (0-100); Basophils Percent Auto 0.6 % (0-2); Eosinophils Absolute Auto 200 /uL (0-450); Eosinophils Percent Auto 2.2 % (2-4); Hematocrit 33.6 % (36-46); Hemoglobin 11.2 g/dL (12.0-16.0); Lymphocytes Absolute Auto 2000 /uL (1100-4500); Lymphocytes Percent Auto 29.5 % (25-40); Mean Corpuscular HGB Conc 33.3 % (30-36); Mean Corpuscular Hemoglobin 30.8 PG (26-34); Mean Corpuscular Volume 92.4 fL (80-100); Monocytes Absolute Auto 400 /uL (0-900); Monocytes Percent Auto 5.8 % (3-14); Neutrophils Absolute Auto 4200 /uL (1500-7000); Neutrophils Percent Auto 61.9 % (50-75); Platelet Count 252 X10^3/uL (150-400); Red Blood Cell Count 3.63 X10^6/uL (4.0-5.2); Red Cell Distribution Width 13.7 % (11.6-14.8); White Blood Cell Count 6.8 X10^3/uL (4.5-11.0)
[2023-07-22 11:25] LABS: BUN Creatinine Ratio 20.6 (6-22); Blood Urea Nitrogen 22 mg/dL (7-17); Calcium 9.5 mg/dL (8.4-10.2); Carbon Dioxide 24 mmol/L (22-32); Chloride 107 mmol/L (98-107); Estimated Glomerular Filt Rate 57 mL/min (>60); Glucose 108 mg/dL (80-110); HEMOLYSIS < 15 (0-50); Potassium 4.4 mmol/L (3.4-5.1); Sodium 138 mmol/L (137-145)
[2023-07-22 11:27] LABS: NT-proBNP (BNP-Adult 18+) 5020 pg/mL (<125)
== END ==
PROVIDERS: PCP Family Medicine; Referring Provider Internal Medicine Cardiovascular Disease; Visit Provider Internal Medicine Cardiovascular Disease
DX: I51.7 Cardiomegaly (principal); R06.09 Other forms of dyspnea
CPT/HCPCS: 36415; 71046; 80048; 83880; 85025

== ENCOUNTER → 2023-10-09 12:37 | Outpatient (CLI) | payer OTHER, SELFPAY ==
[2022-09-03 15:16] VITALS: BMI 38.0
--- NOTE | 2023-10-09 | DI.MG.S_ITS ---
BILATERAL DIGITAL SCREENING MAMMOGRAM 3D/2D WITH CAD: 10/09/2023 CLINICAL: Routine screening. Comparison is made to exams dated: 09/12/2022 mammogram, 09/11/2021 mammogram, and 09/27/2019 mammogram - [facility]. There are scattered areas of fibroglandular density in both breasts (category b / 25%-50% glandular tissue). Current study was also evaluated with a Computer Aided Detection (CAD) system. There is a biopsy clip in the right breast. No significant masses, calcifications, or other findings are seen in either breast. There has been no significant interval change. IMPRESSION: BENIGN There is no mammographic evidence of malignancy. A 1 year screening mammogram is recommended. Based on the Tyrer Cuzick model (a risk assessment model) the patient's lifetime risk is 4.6% and her 10 year risk is 2.5%. According to the ACR, ACS, and NCCN guidelines, an annual breast MRI exam along with mammogram is recommended if the patient's lifetime risk is 20% or greater. This exam was interpreted at Station ID: [id number]. NOTE: For mammograms, a report in lay terms will be sent to the patient. Approximately 15% of breast malignancies will not be visualized mammographically. In the management of a palpable breast mass, a negative mammogram must not discourage biopsy of a clinically suspicious lesion. Electronically Signed By: Clay avitia/tao:10/11/2023 14:55:23 copy to: MICHAEL SANTIAGO letter sent: Normal Exam ACR BI-RADS Category 2: Benign Finding(s) 3342F
== END ==
LOC: MAMMO 12:37
PROVIDERS: PCP Family Medicine; Referring Provider Family Medicine; Visit Provider Family Medicine
DX: Z12.31 Encounter for screening mammogram for malignant neoplasm of breast (principal); R92.323 Mammographic fibroglandular density, bilateral breasts
CPT/HCPCS: 77063; 77067

== ENCOUNTER 2023-12-01 10:29 | Inpatient (IN) | payer OTHER, SELFPAY ==
[2022-09-03 15:16] VITALS: BMI 38.0
[2023-12-01] VITALS (53 sets, daily range): BP systolic 93–153; BP diastolic 27–103; PULSE 109–146; RESP 4–45; TEMP 36.3–38.1; O2SAT 34–100; BMI 36.6
--- NOTE | 2023-12-01 10:34 | DI.RAD.S_ITS ---
PROCEDURE: XR HIP W PEL IF DONE LT 2V INDICATIONS: GLF, POSS HIP DISLOCATION TECHNIQUE: AP pelvis with lateral view(s) of the left hip(s). COMPARISON: [facility], , XR HIP W PEL IF DONE LT 2V, 07/05/2018, 17:24. 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 No fractures noted. The inferior aspect of the left femoral prosthesis is only seen on one view. Soft tissues: The visualized bowel gas pattern is normal. No suspicious soft tissue calcifications. IMPRESSION: Dislocated left hip prosthesis. Dictated by: Antonio Garcia M.D. on 12/01/2023 at 11:16 Approved by: Antonio Garcia M.D. on 12/01/2023 at 11:16
--- NOTE | 2023-12-01 10:36 | ED.GENADULT ---
HPI - General Adult General Chief complaint: Fall Stated complaint: Modified Trauma Time Seen by Provider: 12/01/23 10:30 History of Present Illness HPI narrative: 68-year-old female with history of atrial fibrillation on Eliquis presents by EMS from home for generalized weakness and hip replacement. Patient states that she was getting out of the shower when she felt her hip dislocate and she fell. She states she was caught between the toilet and the wall and unable to get up. She was on the ground for at least 24 hours. Her neighbor went to go check on her and patient was able to yell for help. EMS states that they had to break in through a window. Patient states that she has dislocated her hip previously, but is usually able to relocate it herself. Related Data Home Medications Medication Instructions Recorded Confirmed sertraline 25 mg tablet 25 mg PO QDAY ##0 06/13/16 12/01/23 levothyroxine 125 mcg tablet 125 mcg PO DAILY 06/22/18 12/01/23 meloxicam 15 mg tablet 15 mg PO DAILY PRN Pain 06/22/18 12/01/23 metoprolol succinate 100 mg 100 mg PO DAILY 06/22/18 08/28/19 tablet,extended release 24 hr Cholesterol med PO 08/28/19 08/28/19 Previous Rx's Medication Instructions Recorded benzonatate 100 mg capsule 100 mg PO BID-TID PRN cough #30 08/28/19 (Christopher Spears) caps Allergies Allergy/AdvReac Type Severity Reaction Status Date / Time latex [LATEX] Allergy Severe Skin Verified 12/01/23 14:11 swelling, rash Sulfa (Sulfonamide Allergy Severe Neck turns Verified 12/01/23 14:11 Antibiotics) red [SULFA (SULFONAMIDE ANTIBIOTICS)] nickel AdvReac Irritation/ Verified 12/01/23 14:11 infection Review of Systems Review of Systems Narrative: See HPI Patient History Medical History (Updated 12/01/23 @ 16:23 by Eri Palencia MD) Rosacea Diarrhea Murmur Hypothyroid Hypertension LBBB (left bundle branch block) Unilateral primary osteoarthritis, 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 Surgical History H/O right breast biopsy History of colonoscopy with polypectomy History of total hip arthroplasty Social History household members: none Smoking Status: Never smoker alcohol intake: current Smoking Status: Never smoker alcohol intake frequency: holidays/special occasions only Substance Use Type: does not use Exam Initial Vital Signs Initial Vital Signs: Vital Signs Temperature 98.1 F 12/01/23 10:32 Pulse Rate 124 H 12/01/23 10:32 Respiratory Rate 16 12/01/23 10:32 Blood Pressure 153/96 H 12/01/23 10:32 Pulse Oximetry 91 12/01/23 10:32 Oxygen Delivery Method Room Air 12/01/23 10:32 Oxygen Flow Rate 2 12/01/23 10:32 Const: Awake, alert, no acute distress, ill-appearing Cardiac: Tachycardia, irregularly irregular RESP: unlabored, diffuse rales, right greater than left GI: Soft, nontender, nondistended, no rebound, no guarding MSK: Left lower extremity shortened, internally rotated Skin: Warm, Dry, intact, no rashes Neuro: AO x3, CN II-XII grossly intact, moves all extremities Procedures Orthopedic Joint Reduction Joint #1: Time Out Performed: Yes Side: left Joint Reduction Location: hip Analgesia: procedural sedation Technique used: traction/counter-traction Additional Comments: unsuccessful reduction attempt Procedural Sedation Consent signed: Yes Time out performed: Yes Indication: fracture/dislocation reduction ASA Class: III Mallampati Airway Classification: Class II Time of Last PO Intake: 07:00 Preparation: media monitor applied, pulse oximeter, capnometry used, supplemental O2 applied, suction/airway equipment at bedside and IV secured IV Propofol dose (mg): 100 ED Sedation Level: Moderate (Concious) Patient Tolerated Procedure: Well and No complications Complications: none Course Orders Ordered: ED Orders 12/01/23 10:34 XR hip w pel if done LT 2V Stat 12/01/23 10:35 CT head/brain wo con Stat Chest [XR chest 1V] Stat EKG-12 Lead Stat 12/01/23 11:15 CBC Auto Diff [Complete Blood Count AUTO DIFF] Stat CMP [Comprehensive Metabolic Panel] Stat PT [Prothrombin Time INR] Stat Troponin & CK Cardiac Panel Stat 12/01/23 11:51 Lactate (Lactic Acid) Stat 12/01/23 12:15 Blood Culture Stat 12/01/23 12:50 Consult to Orthopedic Surgery Stat 12/01/23 13:00 Respiratory Panel (Film Array) Stat 12/01/23 13:35 BNP [NT-proBNP (BNP-Adult 18+)] Stat MAG [Magnesium] Stat PTT Partial Thromboplastin Yuriy Stat Prothrombin Time INR Stat 12/01/23 14:18 ABG [Arterial Blood Gas] Stat Sodium Chloride (Normal Saline 0.9%) 1,000 mls @ 150 mls/hr IV CONT UVALDO Discontinued Medications Acetaminophen (Acetaminophen 325 Mg Tablet) 975 mg PO NOW ONE Stop: 12/01/23 13:58 Last Admin: 12/01/23 14:08 Dose: 975 mg Documented By: ADONIS Ceftriaxone Sodium 2,000 mg/ (Sodium Chloride) 100 mls @ 200 mls/hr IV NOW ONE Stop: 12/01/23 11:52 Last Infusion: 12/01/23 13:16 Dose: Infused Documented By: Admin: 12/01/23 12:20 Dose: 200 mls/hr Documented By: ADONIS Azithromycin 500 mg/ Dextrose 250 mls @ 250 mls/hr IV NOW ONE Stop: 12/01/23 11:52 Last Infusion: 12/01/23 14:43 Dose: Infused Documented By: Admin: 12/01/23 12:56 Dose: 250 mls/hr Documented By: ADONIS Sodium Chloride (Normal Saline 0.9%) 1,000 mls @ 1,000 mls/hr IV BOLUS ONE Stop: 12/01/23 15:21 Last Infusion: 12/01/23 15:34 Dose: Infused Documented By: Admin: 12/01/23 14:22 Dose: 1,000 mls/hr Documented By: ADONIS Lorazepam (Lorazepam 2 Mg/Ml Inj) 2 mg IV NOW ONE Stop: 12/01/23 11:05 Last Admin: 12/01/23 11:30 Dose: 2 mg Documented By: ADONIS Metoprolol Tartrate (Metoprolol Tartrate 5 Mg/5 Ml Inj) 5 mg IV Q5M [facility] Stop: 12/01/23 11:56 Last Admin: 12/01/23 13:20 Dose: Not Given Documented By: Admin: 12/01/23 13:20 Dose: Not Given Documented By: Admin: 12/01/23 11:49 Dose: 5 mg Documented By: ADONIS Metoprolol Tartrate (Metoprolol Tartrate 5 Mg/5 Ml Inj) 5 mg IV Q5M [facility] Stop: 12/01/23 13:21 Last Admin: 12/01/23 13:22 Dose: Not Given Documented By: Admin: 12/01/23 13:22 Dose: Not Given Documented By: CRUZ Propofol (Propofol 200 Mg/20 Ml Vial) 200 mg IV NOW ONE Stop: 12/01/23 11:05 Last Admin: 12/01/23 12:38 Dose: 100 mg Documented By: ADONIS Vital Signs Vital signs: Vital Signs - 8 hr 12/01/23 10:32 12/01/23 10:32 12/01/23 10:33 Temperature 98.1 F Temperature [1031] Pulse Rate 124 H 125 H 124 H Pulse Rate [1031] Respiratory Rate 16 25 H Respiratory Rate [1031] Blood Pressure 153/96 H Pulse Oximetry 91 91 91 Pulse Oximetry [1031] Oxygen Delivery Method Room Air Nasal Cannula Oxygen Delivery Method [1031] Oxygen Flow Rate 2 12/01/23 10:33 12/01/23 10:37 12/01/23 10:41 Temperature Temperature [1031] Pulse Rate 140 H Pulse Rate [1031] Respiratory Rate 18 Respiratory Rate [1031] Blood Pressure 153/96 H 145/97 H Pulse Oximetry Pulse Oximetry [1031] Oxygen Delivery Method Oxygen Delivery Method [1031] Oxygen Flow Rate 12/01/23 10:41 12/01/23 10:45 12/01/23 10:59 Temperature Temperature [1031] 98.1 F Pulse Rate 114 H 131 H Pulse Rate [1031] 124 H Respiratory Rate 4 L Respiratory Rate [1031] 16 Blood Pressure Pulse Oximetry 95 Pulse Oximetry [1031] 91 Oxygen Delivery Method Oxygen Delivery Method [1031] Room Air Oxygen Flow Rate 2 12/01/23 11:00 12/01/23 11:00 12/01/23 11:15 Temperature Temperature [1031] Pulse Rate 132 H 135 H Pulse Rate [1031] Respiratory Rate 30 H 33 H Respiratory Rate [1031] Blood Pressure 139/103 H Pulse Oximetry 93 92 Pulse Oximetry [1031] Oxygen Delivery Method Oxygen Delivery Method [1031] Oxygen Flow Rate 3.5 12/01/23 11:30 12/01/23 11:31 04/10/24 11:31 Temperature Temperature [1031] Pulse Rate 136 H 133 H Pulse Rate [1031] Respiratory Rate 35 H 35 H Respiratory Rate [1031] Blood Pressure 140/93 H Pulse Oximetry 94 93 Pulse Oximetry [1031] Oxygen Delivery Method Oxygen Delivery Method [1031] Oxygen Flow Rate 12/01/23 11:45 12/01/23 11:50 12/01/23 11:50 Temperature Temperature [1031] Pulse Rate 125 H 124 H Pulse Rate [1031] Respiratory Rate 35 H 31 H Respiratory Rate [1031] Blood Pressure 111/83 Pulse Oximetry 95 95 Pulse Oximetry [1031] Oxygen Delivery Method Oxygen Delivery Method [1031] Oxygen Flow Rate 3.5 2 12/01/23 11:52 12/01/23 11:52 12/01/23 11:55 Temperature Temperature [1031] Pulse Rate 121 H 125 H Pulse Rate [1031] Respiratory Rate 40 H 35 H Respiratory Rate [1031] Blood Pressure 133/96 H Pulse Oximetry 96 94 Pulse Oximetry [1031] Oxygen Delivery Method Nasal Cannula Oxygen Delivery Method [1031] Oxygen Flow Rate 3.5 12/01/23 11:55 12/01/23 12:00 12/01/23 12:15 Temperature Temperature [1031] Pulse Rate 130 H 127 H Pulse Rate [1031] Respiratory Rate 32 H 33 H Respiratory Rate [1031] Blood Pressure 132/93 H Pulse Oximetry 96 98 Pulse Oximetry [1031] Oxygen Delivery Method Oxygen Delivery Method [1031] Oxygen Flow Rate 12/01/23 12:25 12/01/23 12:25 12/01/23 12:30 Temperature Temperature [1031] Pulse Rate 117 H 122 H Pulse Rate [1031] Respiratory Rate 32 H 33 H Respiratory Rate [1031] Blood Pressure 135/99 H Pulse Oximetry 95 94 Pulse Oximetry [1031] Oxygen Delivery Method Oxygen Delivery Method [1031] Oxygen Flow Rate 12/01/23 12:32 12/01/23 12:32 12/01/23 12:35 Temperature Temperature [1031] Pulse Rate 122 H 127 H Pulse Rate [1031] Respiratory Rate 31 H 32 H Respiratory Rate [1031] Blood Pressure 150/76 H Pulse Oximetry 92 85 L Pulse Oximetry [1031] Oxygen Delivery Method Oxygen Delivery Method [1031] Oxygen Flow Rate 12/01/23 12:35 12/01/23 12:38 12/01/23 12:41 Temperature Temperature [1031] Pulse Rate 127 H 146 H Pulse Rate [1031] Respiratory Rate 30 H 40 H Respiratory Rate [1031] Blood Pressure 136/89 138/89 120/90 Pulse Oximetry 34 L 91 Pulse Oximetry [1031] Oxygen Delivery Method Oxygen Delivery Method [1031] Oxygen Flow Rate 12/01/23 12:41 12/01/23 12:41 12/01/23 12:45 Temperature Temperature [1031] Pulse Rate 131 H 132 H Pulse Rate [1031] Respiratory Rate 45 H 41 H Respiratory Rate [1031] Blood Pressure 120/90 Pulse Oximetry 96 93 Pulse Oximetry [1031] Oxygen Delivery Method Oxygen Delivery Method [1031] Oxygen Flow Rate 12/01/23 12:46 12/01/23 12:46 12/01/23 12:46 Temperature Temperature [1031] Pulse Rate 116 H 132 H Pulse Rate [1031] Respiratory Rate 25 H 21 Respiratory Rate [1031] Blood Pressure 129/70 126/99 H Pulse Oximetry 95 92 Pulse Oximetry [1031] Oxygen Delivery Method Oxygen Delivery Method [1031] Oxygen Flow Rate 12/01/23 12:50 12/01/23 12:50 12/01/23 12:51 Temperature 98.8 F Temperature [1031] Pulse Rate 117 H 120 H Pulse Rate [1031] Respiratory Rate 31 H 21 Respiratory Rate [1031] Blood Pressure 129/78 129/78 Pulse Oximetry 91 97 Pulse Oximetry [1031] Oxygen Delivery Method Oxygen Delivery Method [1031] Oxygen Flow Rate 3 12/01/23 12:55 12/01/23 12:55 12/01/23 12:56 Temperature Temperature [1031] Pulse Rate 126 H 126 H Pulse Rate [1031] Respiratory Rate 33 H 33 H Respiratory Rate [1031] Blood Pressure 126/89 126/89 Pulse Oximetry 97 97 Pulse Oximetry [1031] Oxygen Delivery Method Oxygen Delivery Method [1031] Oxygen Flow Rate 12/01/23 13:00 12/01/23 13:00 12/01/23 13:02 Temperature Temperature [1031] Pulse Rate 117 H 122 H Pulse Rate [1031] Respiratory Rate 33 H 28 H Respiratory Rate [1031] Blood Pressure 132/89 133/91 H Pulse Oximetry 92 94 Pulse Oximetry [1031] Oxygen Delivery Method Oxygen Delivery Method [1031] Oxygen Flow Rate 12/01/23 13:05 12/01/23 13:05 12/01/23 13:05 Temperature Temperature [1031] Pulse Rate 122 H 122 H Pulse Rate [1031] Respiratory Rate 28 H 28 H Respiratory Rate [1031] Blood Pressure 133/91 H 133/91 H Pulse Oximetry 94 94 Pulse Oximetry [1031] Oxygen Delivery Method Oxygen Delivery Method [1031] Oxygen Flow Rate 2 12/01/23 13:15 12/01/23 13:15 12/01/23 13:20 Temperature Temperature [1031] Pulse Rate 121 H Pulse Rate [1031] Respiratory Rate 28 H Respiratory Rate [1031] Blood Pressure 135/93 H 125/97 H Pulse Oximetry 94 Pulse Oximetry [1031] Oxygen Delivery Method Oxygen Delivery Method [1031] Oxygen Flow Rate 12/01/23 13:20 12/01/23 13:25 12/01/23 13:25 Temperature Temperature [1031] Pulse Rate 123 H 118 H Pulse Rate [1031] Respiratory Rate 31 H 29 H Respiratory Rate [1031] Blood Pressure 134/102 H Pulse Oximetry 96 95 Pulse Oximetry [1031] Oxygen Delivery Method Oxygen Delivery Method [1031] Oxygen Flow Rate 12/01/23 13:30 12/01/23 13:44 12/01/23 13:44 Temperature Temperature [1031] Pulse Rate 114 H 114 H Pulse Rate [1031] Respiratory Rate 30 H 34 H Respiratory Rate [1031] Blood Pressure 125/90 Pulse Oximetry 95 96 Pulse Oximetry [1031] Oxygen Delivery Method Oxygen Delivery Method [1031] Oxygen Flow Rate 12/01/23 13:45 12/01/23 14:00 12/01/23 14:07 Temperature 100.4 F H 100.4 F H Temperature [1031] Pulse Rate 115 H 123 H 116 H Pulse Rate [1031] Respiratory Rate 33 H 33 H 31 H Respiratory Rate [1031] Blood Pressure Pulse Oximetry 96 97 88 L Pulse Oximetry [1031] Oxygen Delivery Method Nasal Cannula Oxygen Delivery Method [1031] Oxygen Flow Rate 3 12/01/23 14:07 12/01/23 14:15 12/01/23 14:30 Temperature 100.4 F H Temperature [1031] Pulse Rate 109 H 127 H Pulse Rate [1031] Respiratory Rate 30 H 36 H Respiratory Rate [1031] Blood Pressure 126/77 121/90 Pulse Oximetry 95 94 Pulse Oximetry [1031] Oxygen Delivery Method Nasal Cannula Oxygen Delivery Method [1031] Oxygen Flow Rate 3 Medical Decision Making Lab Data 12/01/23 11:15 12/01/23 11:15 Labs: Lab Results 12/01/23 12/01/23 12/01/23 Range/Units 11:15 11:51 13:00 WBC 17.5 H (4.5-11.0) X10^3/uL RBC 4.93 (4.0-5.2) X10^6/uL Hgb 14.9 (12.0-16.0) g/dL Hct 45.0 (36-46) % MCV 91.3 (80-100) fL MCH 30.3 (26-34) PG MCHC 33.2 (30-36) % RDW 14.5 (11.6-14.8) % Plt Count 272 (150-400) X10^3/uL Neut % (Auto) 88.0 H (50-75) % Lymph % (Auto) 5.8 L (25-40) % [place] % (Auto) 6.1 (3-14) % Eos % (Auto) 0.0 L (2-4) % Baso % (Auto) 0.1 (0-2) % Neut # (Auto) 08449 H (0509-8741) /uL Lymph # (Auto) 1000 L (2653-9436) /uL [place] # (Auto) 1100 H (0-900) /uL Eos # (Auto) 0 (0-450) /uL Baso # (Auto) 0 (0-100) /uL PT 15.2 H (9.4-12.5) SECONDS INR 1.3 (0.9-1.3) APTT (25.1-36.5) SECONDS ABG Sample Site ABG pH (7.35-7.45) ABG pCO2 (35-45) mmHg ABG pO2 (80-100) mmHg ABG HCO3 (23-27) mmol/L ABG Total CO2 (23-27) mmol/L ABG O2 Saturation (95-100) % ABG Base Excess (-2-3) mmol/L FiO2 Sodium 138 (137-145) mmol/L Potassium 4.6 (3.4-5.1) mmol/L Chloride 109 H (98-107) mmol/L Carbon Dioxide 19 L (22-32) mmol/L BUN 36 H (7-17) mg/dL Creatinine 1.21 H (0.52-1.04) mg/dL Estimated GFR 49 L (>60) mL/min BUN/Creatinine Ratio 29.8 H (6-22) Glucose 130 H (80-110) mg/dL Lactate 2.5 H (0.7-2.1) mmol/L Calcium 9.6 (8.4-10.2) mg/dL Magnesium (1.6-2.3) mg/dL Total Bilirubin 2.3 H (0.2-1.3) mg/dL AST 75 H (14-36) IU/L ALT 31 (<35) IU/L Alkaline Phosphatase 84 (38-126) U/L Total Creatine Kinase 1296 H (30-135) U/L Troponin I 0.063 H (0.01-0.034) ng/mL NT-Pro-B Natriuret Pep (<125) pg/mL Total Protein 7.3 (6.3-8.2) g/dL Albumin 4.1 (3.5-5.0) g/dL Globulin 3.2 (1.7-4.1) g/dL Albumin/Globulin Ratio 1.3 (1.0-2.8) Chlamy pneumoniae PCR Not detected (Not Detect) Adenovirus (PCR) Not detected (Not Detect) B.parapertussis DNA PCR Not detected (Not Detecte) Coronavirus OC43 (PCR) Not detected (Not Detect) Coronavirus HKU1 (PCR) Not detected (Not Detect) Coronavirus 229E (PCR) Not detected (Not Detect) SARS-CoV-2 (PCR) Not detected (Not Detecte) Coronavirus NL63 (PCR) Not detected (Not Detect) Human Metapneumovir PCR Not detected (Not Detect) Influenza Type A (PCR) Not detected (Not Detect) Influenza Type B (PCR) Not detected (Not Detect) M. pneumoniae (PCR) Not detected (Not Detect) Parainfluenza 1 (PCR) Not detected (Not Detect) Parainfluenza 2 (PCR) Not detected (Not Detect) Parainfluenza 3 (PCR) Not detected (Not Detect) Parainfluenza 4 (PCR) Not detected (Not Detect) RSV (PCR) Not detected (Not Detect) Entero/Rhino (PCR) Not detected (Not Detect) 12/01/23 12/01/23 12/01/23 Range/Units 13:35 13:59 14:18 WBC (4.5-11.0) X10^3/uL RBC (4.0-5.2) X10^6/uL Hgb (12.0-16.0) g/dL Hct (36-46) % MCV (80-100) fL MCH (26-34) PG MCHC (30-36) % RDW (11.6-14.8) % Plt Count (150-400) X10^3/uL Neut % (Auto) (50-75) % Lymph % (Auto) (25-40) % [place] % (Auto) (3-14) % Eos % (Auto) (2-4) % Baso % (Auto) (0-2) % Neut # (Auto) (3085-2252) /uL Lymph # (Auto) (4301-6179) /uL [place] # (Auto) (0-900) /uL Eos # (Auto) (0-450) /uL Baso # (Auto) (0-100) /uL PT 14.7 H (9.4-12.5) SECONDS INR 1.3 (0.9-1.3) APTT 35 (25.1-36.5) SECONDS ABG Sample Site Right radial ABG pH 7.41 (7.35-7.45) ABG pCO2 31.6 L (35-45) mmHg ABG pO2 77 L (80-100) mmHg ABG HCO3 20 L (23-27) mmol/L ABG Total CO2 21 L (23-27) mmol/L ABG O2 Saturation 96 (95-100) % ABG Base Excess -5.0 L (-2-3) mmol/L FiO2 32 Sodium (137-145) mmol/L Potassium (3.4-5.1) mmol/L Chloride (98-107) mmol/L Carbon Dioxide (22-32) mmol/L BUN (7-17) mg/dL Creatinine (0.52-1.04) mg/dL Estimated GFR (>60) mL/min BUN/Creatinine Ratio (6-22) Glucose (80-110) mg/dL Lactate 2.7 H (0.7-2.1) mmol/L Calcium (8.4-10.2) mg/dL Magnesium 2.2 (1.6-2.3) mg/dL Total Bilirubin (0.2-1.3) mg/dL AST (14-36) IU/L ALT (<35) IU/L Alkaline Phosphatase (38-126) U/L Total Creatine Kinase (30-135) U/L Troponin I (0.01-0.034) ng/mL NT-Pro-B Natriuret Pep 81937 H (<125) pg/mL Total Protein (6.3-8.2) g/dL Albumin (3.5-5.0) g/dL Globulin (1.7-4.1) g/dL Albumin/Globulin Ratio (1.0-2.8) Chlamy pneumoniae PCR (Not Detect) Adenovirus (PCR) (Not Detect) B.parapertussis DNA PCR (Not Detecte) Coronavirus OC43 (PCR) (Not Detect) Coronavirus HKU1 (PCR) (Not Detect) Coronavirus 229E (PCR) (Not Detect) SARS-CoV-2 (PCR) (Not Detecte) Coronavirus NL63 (PCR) (Not Detect) Human Metapneumovir PCR (Not Detect) Influenza Type A (PCR) (Not Detect) Influenza Type B (PCR) (Not Detect) M. pneumoniae (PCR) (Not Detect) Parainfluenza 1 (PCR) (Not Detect) Parainfluenza 2 (PCR) (Not Detect) Parainfluenza 3 (PCR) (Not Detect) Parainfluenza 4 (PCR) (Not Detect) RSV (PCR) (Not Detect) Entero/Rhino (PCR) (Not Detect) Point of Care Testing Test Results Not applicable Point of care testing: Point of Care Testing Test Results Not applicable Imaging Data Extremity x-ray #1: Radiologist's Impression: PROCEDURE: XR HIP W PEL IF DONE LT 2V INDICATIONS: GLF, POSS HIP DISLOCATION TECHNIQUE: AP pelvis with lateral view(s) of the left hip(s). COMPARISON: [facility], CR, XR HIP W PEL IF DONE LT 2V, 07/05/2018, 17:24. 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 No fractures noted. The inferior aspect of the left femoral prosthesis is only seen on one view. Soft tissues: The visualized bowel gas pattern is normal. No suspicious soft tissue calcifications. IMPRESSION: Dislocated left hip prosthesis. Dictated by: Antonio Garcia M.D. on 12/01/2023 at 11:16 Approved by: Antonio Garcia M.D. on 12/01/2023 at 11:1 Chest x-ray: Radiologist's Impression: PROCEDURE: XR CHEST 1V INDICATIONS: GLF, LOW O2 TECHNIQUE: One view of the chest was acquired. COMPARISON: [facility], CR, XR CHEST 2V, 07/22/2023, 10:04. FINDINGS: Surgical changes and devices: None. Lungs and pleura: Fluffy consolidation, right lung. Left lung grossly clear. No pleural effusions or pneumothorax. Mediastinum: Mediastinal contours appear normal. Cardiomegaly. Bones and chest wall: No suspicious bony lesions. Overlying soft tissues appear unremarkable. IMPRESSION: 1. Cardiomegaly. 2. Findings either represent right-sided pneumonia or unilateral asymmetric pulmonary edema. Dictated by: Antonio Garcia M.D. on 12/01/2023 at 11:27 Approved by: Antonio Garcia M.D. on 12/01/2023 at 11:30 CT scan - head: Radiologist's Impression: PROCEDURE: CT HEAD/BRAIN WO CON INDICATIONS: GLF/HEAD INJURY TECHNIQUE: Noncontrast 4.5 mm thick angled axial sections acquired from the foramen magnum to the vertex, with coronal and sagittal reformats. For radiation dose reduction, the following was used: automated exposure control, adjustment of mA and/or kV according to patient size. COMPARISON: [facility], CT, HEAD WITHOUT CONTRAST, 04/22/2009, 8:07. FINDINGS: Image quality: Diagnostic. CSF spaces: Basal cisterns are patent. No extra-axial fluid collections. The ventricles are symmetric in size and shape. Brain: No intracranial bleeds or masses. There is cerebral volume loss for age, with resultant ventricular and sulcal prominence. There are periventricular and deep white matter chronic small vessel ischemic changes. There is intracranial internal carotid artery atherosclerosis. Skull and face: Calvarium and visualized facial bones appear intact, without suspicious lesions. Sinuses: Visualized sinuses and mastoids are clear. IMPRESSION: No acute intracranial pathology. Dictated by: Antonio Garcia M.D. on 12/01/2023 at 11:00 Approved by: Antonio Garcia M.D. on 12/01/2023 at 11:04 ECG Data Interpretation: Atrial fibrillation with rapid ventricular response. Rightward axis, no ST T wave changes MDM Narrative Medical decision making narrative: Hip dislocation, patient is subsequently unable to get up and on the bathroom floor for at least 24 hours. Noted to be tachycardic and mildly hypoxic on arrival, patient has been without any of her medications for at least 1 day. Labs and imaging ordered. Placed on oxygen. Laboratory work is significant for WBC count 17.5, hemoglobin 14.9, sodium 138, potassium 4.6, creatinine 1.21, lactic acid 2.5, CK 1296, troponin 0.063, BNP 36612. Chest x-ray shows fluffy consolidation of the right lung, ?findings either represent right-sided pneumonia or unilateral asymmetric pulmonary edema?. Patient does not appear volume overloaded, in fact she seems on the dehydrated side and I suspect that this is more pneumonia despite patient not complaining of any respiratory symptoms. Troponin mildly elevated, however I suspect this is nonischemic, contributed to by worsening renal function and AFib with RVR. Blood cultures drawn and sent to lab, Rocephin and azithromycin ordered for coverage. Hip x-ray confirms posterior dislocation. Attempted to reduce hip, however despite adequate sedation and multiple attempts I was unsuccessful. Call placed to Dr. Singh of Orthopedic surgery, who can take the patient to the OR this afternoon. Due to the complexity and number of ongoing medical issues patient to be admitted to the ICU Discharge Plan Departure Patient Disposition: Admitted As Inpatient Clinical Impression: Dislocation, hip closed, Acute hypoxemic respiratory failure, Rhabdomyolysis, Pneumonia Admit Date/Time: 12/01/23 14:51 Admit Provider: Kate Valera
[2023-12-01] MEDS: LORazepam 2 MG/ML INJ IV (11:30)
[2023-12-01 11:32] LABS: Add Manual Diff / Slide Review NO; Basophils Absolute Auto 0 /uL (0-100); Basophils Percent Auto 0.1 % (0-2); Eosinophils Absolute Auto 0 /uL (0-450); Hemoglobin 14.9 g/dL (12.0-16.0); Lymphocytes Absolute Auto 1000 /uL (1100-4500); Lymphocytes Percent Auto 5.8 % (25-40); Mean Corpuscular HGB Conc 33.2 % (30-36); Mean Corpuscular Hemoglobin 30.3 PG (26-34); Mean Corpuscular Volume 91.3 fL (80-100); Monocytes Absolute Auto 1100 /uL (0-900); Monocytes Percent Auto 6.1 % (3-14); Neutrophils Absolute Auto 15400 /uL (1500-7000); Platelet Count 272 X10^3/uL (150-400); Red Blood Cell Count 4.93 X10^6/uL (4.0-5.2); Red Cell Distribution Width 14.5 % (11.6-14.8); White Blood Cell Count 17.5 X10^3/uL (4.5-11.0)
[2023-12-01 11:45] LABS: INR 1.3 (0.9-1.3); Prothrombin Time 15.2 SECONDS (9.4-12.5)
[2023-12-01 11:49] LABS: HEMOLYSIS 82 (0-50)
[2023-12-01] MEDS: METOPROLOL TARTRATE 5 MG/5 ML INJ IV (11:49)
[2023-12-01 11:54] LABS: Alanine Aminotransferase 31 IU/L (<35); Albumin 4.1 g/dL (3.5-5.0); Albumin Globulin Ratio 1.3 (1.0-2.8); Alkaline Phosphatase 84 U/L (38-126); Aspartate Aminotransferase 75 IU/L (14-36); BUN Creatinine Ratio 29.8 (6-22); Bilirubin Total 2.3 mg/dL (0.2-1.3); Blood Urea Nitrogen 36 mg/dL (7-17); Calcium 9.6 mg/dL (8.4-10.2); Carbon Dioxide 19 mmol/L (22-32); Chloride 109 mmol/L (98-107); Creatine Kinase 1296 U/L (30-135); Estimated Glomerular Filt Rate 49 mL/min (>60); Globulin 3.2 g/dL (1.7-4.1); Glucose 130 mg/dL (80-110); Potassium 4.6 mmol/L (3.4-5.1); Sodium 138 mmol/L (137-145); Total Protein 7.3 g/dL (6.3-8.2)
[2023-12-01 12:09] LABS: Lactate (Lactic Acid) 2.5 mmol/L (0.7-2.1)
[2023-12-01] MEDS: cefTRIAXone 2,000 MG in SODIUM CHLORIDE 0.9% 100 ML 200 MG IV (12:20)
[2023-12-01 12:38] LABS: Troponin I 0.063 ng/mL (0.01-0.034)
[2023-12-01] MEDS: propofoL 200 MG/20 ML VIAL IV (12:38)
[2023-12-01] MEDS: AZITHROMYCIN 500 MG in DEXTROSE 5% IN WATER 250 ML 250 MG IV (12:56)
--- NOTE | 2023-12-01 13:23 | PC.NURSE ---
Confirmed with provider Talha that second two doses of metoprolol tartate at 5mg each is to be not given.
[2023-12-01 13:37] LABS: Reflexed Lactate in 2 Hours Y
[2023-12-01 13:49] LABS: INR 1.3 (0.9-1.3); Prothrombin Time 14.7 SECONDS (9.4-12.5)
[2023-12-01 13:52] LABS: PTT Partial Thromboplastin Tim 35 SECONDS (25.1-36.5)
[2023-12-01 14:02] LABS: Adenovirus Not Detected (Not Detect); B. parapertussis Not Detected (Not Detecte); Bordetella pertussis Not Detected (Not Detect); Chlamydophila pneumoniae Not Detected (Not Detect); Coronavirus 229E Not Detected (Not Detect); Coronavirus HKU1 Not Detected (Not Detect); Coronavirus NL 63 Not Detected (Not Detect); Coronavirus OC43 Not Detected (Not Detect); Human Metapneumovirus Not Detected (Not Detect); Human Rhinovirus/Enterovirus Not Detected (Not Detect); Influenza A Not Detected (Not Detect); Influenza B Not Detected (Not Detect); Mycoplasma pneumoniae Not Detected (Not Detect); Parainfluenza Virus 1 Not Detected (Not Detect); Parainfluenza Virus 2 Not Detected (Not Detect); Parainfluenza Virus 3 Not Detected (Not Detect); Parainfluenza Virus 4 Not Detected (Not Detect); Respiratory Syncytial Virus Not Detected (Not Detect); SARS- CoV-2 Not Detected (Not Detecte)
[2023-12-01 14:03] LABS: NT-proBNP (BNP-Adult 18+) 18100 pg/mL (<125)
[2023-12-01] MEDS: ACETAMINOPHEN 325 MG TABLET 975 MG PO (14:08)
[2023-12-01 14:13] LABS: Lactate 2HR (Lactic Acid Rflx) 2.7 mmol/L (0.7-2.1)
[2023-12-01] MEDS: SODIUM CHLORIDE 0.9% 1,000 ML 1000 ML IV (14:22)
[2023-12-01 14:27] LABS: Allen Test for ABG Passed? Yes, Passed; Blood Gas Collection Site Right Radial; Fractionated Inspired Oxygen 32; HCO3 ABG 20 mmol/L (23-27); Oxygen Saturation ABG 96 % (95-100); PCO2 ABG 31.6 mmHg (35-45); PO2 ABG 77 mmHg (80-100); TCO2 ABG 21 mmol/L (23-27); pH ABG 7.41 (7.35-7.45)
[2023-12-01 14:30] LABS: Magnesium 2.2 mg/dL (1.6-2.3)
--- NOTE | 2023-12-01 16:12 | PC.NURSE ---
See printed VS for complete set
--- NOTE | 2023-12-01 16:22 | PC.NURSE ---
Addendum entered by Ambrose Caballero R.N. 12/01/23 17:29: 1630 - Message left for Dr Velez for surgical orders. Awaiting admission orders from Dr Valera Original Note: Admission assessment and med rec. completed as best as possible. Patient mildly confused.
[2023-12-01] MEDS: SODIUM CHLORIDE 0.9% 1,000 ML 150 ML IV (16:30)
[2023-12-01 16:38] LABS: Lactate (Lactic Acid) 1.6 mmol/L (0.7-2.1)
--- NOTE | 2023-12-01 18:00 | P.HP_ITS ---
History of Present Illness History of Present Illness Date Patient Seen: 12/01/23 Time Patient Seen: 18:00 Date of Onset of Symptoms: 12/01/23 Chief complaint: Modified Trauma Narrative: This is a very pleasant 60-year-old female who was found down after dislocating her left hip while drying off her leg as it was propped up on the toilet. This is the 6th time that she is dislocated this left hip and typically she can put it back in herself. She then fell on the ground and lives alone and was down for 24 hours. She was supposed to be doing something with a friend today and the friend came over and she was yelling for help. She was cold and using everything she could to keep herself warm. She was unable to move and unable to contact anyone. She denies any other injuries or hitting her head or loss of consciousness. Prior to this she was in her usual state of health. She presented to the emergency room by 911 in was found to have a dislocated left hip. They attempted to reduce it in the ER but were unsuccessful and Dr. Singh from Orthopedics was consulted. Apparently he decided that she was too weak to attempt to reduce it today and she was admitted to the hospital and they will take her to the OR to surgically reduce it in the a.m.. In the ER she was found to have rhabdomyolysis with a CK of 1200 and mild renal insufficiency as well as elevated white blood cell count and lactate with hypoxemia and tachycardia. She was admitted to the ICU for further treatment. Patient received 2 g of IV ceftriaxone and 500 mg of IV azithromycin to treat a suspected underlying pneumonia. Patient was given 1 L of IV fluids. Patient was given sedation in attempts to reduce her hip. Patient's last medications were on 11/30/2023 in the a.m. Past medical history: 1. AFib with RVR with difficulty controlling her rate. Currently on metoprolol 200 mg extended release twice daily 2. Left bundle branch block 3. Chronic systolic heart failure 4. Essential hypertension 5. Hypothyroidism 6. Heart failure with reduced ejection fraction. Last echo showed EF of 25-30% on 08/30/2023. It is thought that this is nonischemic. 1023 nuclear stress test was low risk normal study 7. Hyperlipidemia 8. Depression stable on low-dose sertraline 9. Stage 3 chronic kidney disease Medications include atorvastatin 20 mg daily, Eliquis, metoprolol XL 200 mg twice daily, levothyroxine 100 mcg daily, lisinopril 20 mg daily Allergies sulfa, nickel, latex Past surgical history: 1. Right total hip replacement 2014 2. Left total hip replacement by Dr. Christinason Social history: Patient is retired but still works part-time at the [employer] that she attends. Patient is single but has supportive family and friends in the area Health related behavior: Patient has never been a smoker, is fairly active, does not use alcohol or illicit drugs Family history: Degenerative joint disease No family history of AFib Melanoma in brother Renal cancer in mother Alzheimer's disease in father as well as hypertension Colon cancer in brother Review of systems: Patient denies any shortness a breath or cough or palpitations or syncope or lightheadedness or dizziness Patient denies any fever or chills or rashes Patient denies any unintentional weight loss or weight gain Patient denies any worsening depression or anxiety Patient denies any GI complaints change in bowel bladder etc. [facility] Medical History (Updated 12/01/23 @ 16:23 by Eri Palencia MD) Rosacea Diarrhea Murmur Hypothyroid Hypertension LBBB (left bundle branch block) Unilateral primary osteoarthritis, 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 Surgical History H/O right breast biopsy History of colonoscopy with polypectomy History of total hip arthroplasty Social History household members: none Smoking Status: Never smoker alcohol intake: current Meds Home Medications and Allergies Home Medications Medication Instructions Recorded Confirmed Type sertraline 25 mg tablet 25 mg PO QDAY ##0 06/13/16 12/01/23 History levothyroxine 125 mcg tablet 125 mcg PO DAILY 06/22/18 12/01/23 History meloxicam 15 mg tablet 15 mg PO DAILY PRN Pain 06/22/18 12/01/23 History metoprolol succinate 100 mg 200 mg PO BID 06/22/18 12/01/23 History tablet,extended release 24 hr apixaban 5 mg tablet (Eliquis) 5 mg PO BID 12/01/23 12/01/23 History atorvastatin 40 mg tablet 40 mg PO DAILY 12/01/23 12/01/23 History furosemide 20 mg tablet 20 mg PO DAILY 12/01/23 12/01/23 History lisinopril 20 mg tablet 20 mg PO DAILY 12/01/23 12/01/23 History Allergies Allergy/AdvReac Type Severity Reaction Status Date / Time latex [LATEX] Allergy Severe Skin Verified 12/01/23 14:11 swelling, rash Sulfa (Sulfonamide Allergy Severe Neck turns Verified 12/01/23 14:11 Antibiotics) red [SULFA (SULFONAMIDE ANTIBIOTICS)] nickel AdvReac Irritation/ Verified 12/01/23 14:11 infection Exam Vital Signs (past 8 hours): - 12/01/23 10:32 12/01/23 10:32 12/01/23 10:33 Temperature 98.1 F Temperature [1031] Pulse Rate 124 H 125 H 124 H Pulse Rate [1031] Respiratory Rate 16 25 H Respiratory Rate [1031] Blood Pressure 153/96 H Pulse Oximetry 91 91 91 Pulse Oximetry [1031] Oxygen Delivery Method Room Air Nasal Cannula Oxygen Delivery Method [1031] Oxygen Flow Rate 2 12/01/23 10:33 12/01/23 10:37 12/01/23 10:41 Temperature Temperature [1031] Pulse Rate 140 H Pulse Rate [1031] Respiratory Rate 18 Respiratory Rate [1031] Blood Pressure 153/96 H 145/97 H Pulse Oximetry Pulse Oximetry [1031] Oxygen Delivery Method Oxygen Delivery Method [1031] Oxygen Flow Rate 12/01/23 10:41 12/01/23 10:45 12/01/23 10:59 Temperature Temperature [1031] 98.1 F Pulse Rate 114 H 131 H Pulse Rate [1031] 124 H Respiratory Rate 4 L Respiratory Rate [1031] 16 Blood Pressure Pulse Oximetry 95 Pulse Oximetry [1031] 91 Oxygen Delivery Method Oxygen Delivery Method [1031] Room Air Oxygen Flow Rate 2 12/01/23 11:00 12/01/23 11:00 12/01/23 11:15 Temperature Temperature [1031] Pulse Rate 132 H 135 H Pulse Rate [1031] Respiratory Rate 30 H 33 H Respiratory Rate [1031] Blood Pressure 139/103 H Pulse Oximetry 93 92 Pulse Oximetry [1031] Oxygen Delivery Method Oxygen Delivery Method [1031] Oxygen Flow Rate 3.5 12/01/23 11:30 12/01/23 11:31 12/01/23 11:31 Temperature Temperature [1031] Pulse Rate 136 H 133 H Pulse Rate [1031] Respiratory Rate 35 H 35 H Respiratory Rate [1031] Blood Pressure 140/93 H Pulse Oximetry 94 93 Pulse Oximetry [1031] Oxygen Delivery Method Oxygen Delivery Method [1031] Oxygen Flow Rate 12/01/23 11:45 12/01/23 11:50 12/01/23 11:50 Temperature Temperature [1031] Pulse Rate 125 H 124 H Pulse Rate [1031] Respiratory Rate 35 H 31 H Respiratory Rate [1031] Blood Pressure 111/83 Pulse Oximetry 95 95 Pulse Oximetry [1031] Oxygen Delivery Method Oxygen Delivery Method [1031] Oxygen Flow Rate 3.5 2 12/01/23 11:52 12/01/23 11:52 12/01/23 11:55 Temperature Temperature [1031] Pulse Rate 121 H 125 H Pulse Rate [1031] Respiratory Rate 40 H 35 H Respiratory Rate [1031] Blood Pressure 133/96 H Pulse Oximetry 96 94 Pulse Oximetry [1031] Oxygen Delivery Method Nasal Cannula Oxygen Delivery Method [1031] Oxygen Flow Rate 3.5 12/01/23 11:55 12/01/23 12:00 12/01/23 12:15 Temperature Temperature [1031] Pulse Rate 130 H 127 H Pulse Rate [1031] Respiratory Rate 32 H 33 H Respiratory Rate [1031] Blood Pressure 132/93 H Pulse Oximetry 96 98 Pulse Oximetry [1031] Oxygen Delivery Method Oxygen Delivery Method [1031] Oxygen Flow Rate 12/01/23 12:25 12/01/23 12:25 12/01/23 12:30 Temperature Temperature [1031] Pulse Rate 117 H 122 H Pulse Rate [1031] Respiratory Rate 32 H 33 H Respiratory Rate [1031] Blood Pressure 135/99 H Pulse Oximetry 95 94 Pulse Oximetry [1031] Oxygen Delivery Method Oxygen Delivery Method [1031] Oxygen Flow Rate 12/01/23 12:32 12/01/23 12:32 12/01/23 12:35 Temperature Temperature [1031] Pulse Rate 122 H 127 H Pulse Rate [1031] Respiratory Rate 31 H 32 H Respiratory Rate [1031] Blood Pressure 150/76 H Pulse Oximetry 92 85 L Pulse Oximetry [1031] Oxygen Delivery Method Oxygen Delivery Method [1031] Oxygen Flow Rate 12/01/23 12:35 12/01/23 12:38 12/01/23 12:41 Temperature Temperature [1031] Pulse Rate 127 H 146 H Pulse Rate [1031] Respiratory Rate 30 H 40 H Respiratory Rate [1031] Blood Pressure 136/89 138/89 120/90 Pulse Oximetry 34 L 91 Pulse Oximetry [1031] Oxygen Delivery Method Oxygen Delivery Method [1031] Oxygen Flow Rate 12/01/23 12:41 12/01/23 12:41 12/01/23 12:45 Temperature Temperature [1031] Pulse Rate 131 H 132 H Pulse Rate [1031] Respiratory Rate 45 H 41 H Respiratory Rate [1031] Blood Pressure 120/90 Pulse Oximetry 96 93 Pulse Oximetry [1031] Oxygen Delivery Method Oxygen Delivery Method [1031] Oxygen Flow Rate 12/01/23 12:46 12/01/23 12:46 12/01/23 12:46 Temperature Temperature [1031] Pulse Rate 116 H 132 H Pulse Rate [1031] Respiratory Rate 25 H 21 Respiratory Rate [1031] Blood Pressure 129/70 126/99 H Pulse Oximetry 95 92 Pulse Oximetry [1031] Oxygen Delivery Method Oxygen Delivery Method [1031] Oxygen Flow Rate 12/01/23 12:50 12/01/23 12:50 12/01/23 12:51 Temperature 98.8 F Temperature [1031] Pulse Rate 117 H 120 H Pulse Rate [1031] Respiratory Rate 31 H 21 Respiratory Rate [1031] Blood Pressure 129/78 129/78 Pulse Oximetry 91 97 Pulse Oximetry [1031] Oxygen Delivery Method Oxygen Delivery Method [1031] Oxygen Flow Rate 3 12/01/23 12:55 12/01/23 12:55 12/01/23 12:56 Temperature Temperature [1031] Pulse Rate 126 H 126 H Pulse Rate [1031] Respiratory Rate 33 H 33 H Respiratory Rate [1031] Blood Pressure 126/89 126/89 Pulse Oximetry 97 97 Pulse Oximetry [1031] Oxygen Delivery Method Oxygen Delivery Method [1031] Oxygen Flow Rate 12/01/23 13:00 12/01/23 13:00 12/01/23 13:02 Temperature Temperature [1031] Pulse Rate 117 H 122 H Pulse Rate [1031] Respiratory Rate 33 H 28 H Respiratory Rate [1031] Blood Pressure 132/89 133/91 H Pulse Oximetry 92 94 Pulse Oximetry [1031] Oxygen Delivery Method Oxygen Delivery Method [1031] Oxygen Flow Rate 12/01/23 13:05 12/01/23 13:05 12/01/23 13:05 Temperature Temperature [1031] Pulse Rate 122 H 122 H Pulse Rate [1031] Respiratory Rate 28 H 28 H Respiratory Rate [1031] Blood Pressure 133/91 H 133/91 H Pulse Oximetry 94 94 Pulse Oximetry [1031] Oxygen Delivery Method Oxygen Delivery Method [1031] Oxygen Flow Rate 2 12/01/23 13:15 12/01/23 13:15 12/01/23 13:20 Temperature Temperature [1031] Pulse Rate 121 H Pulse Rate [1031] Respiratory Rate 28 H Respiratory Rate [1031] Blood Pressure 135/93 H 125/97 H Pulse Oximetry 94 Pulse Oximetry [1031] Oxygen Delivery Method Oxygen Delivery Method [1031] Oxygen Flow Rate 12/01/23 13:20 12/01/23 13:25 12/01/23 13:25 Temperature Temperature [1031] Pulse Rate 123 H 118 H Pulse Rate [1031] Respiratory Rate 31 H 29 H Respiratory Rate [1031] Blood Pressure 134/102 H Pulse Oximetry 96 95 Pulse Oximetry [1031] Oxygen Delivery Method Oxygen Delivery Method [1031] Oxygen Flow Rate 12/01/23 13:30 12/01/23 13:44 12/01/23 13:44 Temperature Temperature [1031] Pulse Rate 114 H 114 H Pulse Rate [1031] Respiratory Rate 30 H 34 H Respiratory Rate [1031] Blood Pressure 125/90 Pulse Oximetry 95 96 Pulse Oximetry [1031] Oxygen Delivery Method Oxygen Delivery Method [1031] Oxygen Flow Rate 12/01/23 13:45 12/01/23 14:00 12/01/23 14:07 Temperature 100.4 F H 100.4 F H Temperature [1031] Pulse Rate 115 H 123 H 116 H Pulse Rate [1031] Respiratory Rate 33 H 33 H 31 H Respiratory Rate [1031] Blood Pressure Pulse Oximetry 96 97 88 L Pulse Oximetry [1031] Oxygen Delivery Method Nasal Cannula Oxygen Delivery Method [1031] Oxygen Flow Rate 3 12/01/23 14:07 12/01/23 14:15 04/10/24 14:30 Temperature 100.4 F H Temperature [1031] Pulse Rate 109 H 127 H Pulse Rate [1031] Respiratory Rate 30 H 36 H Respiratory Rate [1031] Blood Pressure 126/77 121/90 Pulse Oximetry 95 94 Pulse Oximetry [1031] Oxygen Delivery Method Nasal Cannula Oxygen Delivery Method [1031] Oxygen Flow Rate 3 12/01/23 15:00 12/01/23 15:35 12/01/23 15:40 Temperature 100.6 F H 100.6 F H 100.6 F H Temperature [1031] Pulse Rate 109 H 110 H Pulse Rate [1031] Respiratory Rate 25 H 27 H Respiratory Rate [1031] Blood Pressure 116/74 121/82 Pulse Oximetry 95 97 Pulse Oximetry [1031] Oxygen Delivery Method Nasal Cannula Nasal Cannula Oxygen Delivery Method [1031] Oxygen Flow Rate 3 3 Oxygen Delivery Method [1031] Room Air Oxygen Delivery Method Nasal Cannula Oxygen Flow Rate 3 Narrative Exam Narrative: Patient is alert and oriented lying comfortably in the hospital bed. She appears shocked and slightly pale. She is able to give history and is conversant and alert and oriented x3 HEENT shows pallor in her face. Mucous membranes moist and pink Neck: Supple without adenopathy or masses Chest: Diffuse rhonchi and expiratory wheezes left greater than right chest. No increased work of breathing. No nasal flaring or intercostal retraction No pain over the anterior precordium Abdomen: Positive bowel sounds, soft, nontender, nondistended, no hepatosplenomegaly, no guarding or rebound Extremities: Dorsalis pedis pulses are trace to 1+ bilaterally. Patient has full range of motion of the right leg. There is no edema. Her left leg she is able to wiggle her toes. Sensation is normal. Her extremities are cool capillary refill time 3 seconds Neurologic exam is nonfocal Skin exam unremarkable Objective Labs 12/01/23 11:15 12/01/23 11:15 Labs: Laboratory Results - last 24 hr 12/01/23 12/01/23 12/01/23 11:15 11:51 13:00 WBC 17.5 H RBC 4.93 Hgb 14.9 Hct 45.0 MCV 91.3 MCH 30.3 MCHC 33.2 RDW 14.5 Plt Count 272 Neut % (Auto) 88.0 H Lymph % (Auto) 5.8 L Petroleum % (Auto) 6.1 Eos % (Auto) 0.0 L Baso % (Auto) 0.1 Neut # (Auto) 68882 H Lymph # (Auto) 1000 L Petroleum # (Auto) 1100 H Eos # (Auto) 0 Baso # (Auto) 0 PT 15.2 H INR 1.3 APTT ABG Sample Site ABG pH ABG pCO2 ABG pO2 ABG HCO3 ABG Total CO2 ABG O2 Saturation ABG Base Excess FiO2 Sodium 138 Potassium 4.6 Chloride 109 H Carbon Dioxide 19 L BUN 36 H Creatinine 1.21 H Estimated GFR 49 L BUN/Creatinine Ratio 29.8 H Glucose 130 H Lactate 2.5 H Calcium 9.6 Magnesium Total Bilirubin 2.3 H AST 75 H ALT 31 Alkaline Phosphatase 84 Total Creatine Kinase 1296 H Troponin I 0.063 H NT-Pro-B Natriuret Pep Total Protein 7.3 Albumin 4.1 Globulin 3.2 Albumin/Globulin Ratio 1.3 Chlamy pneumoniae PCR Not detected Adenovirus (PCR) Not detected B.parapertussis DNA PCR Not detected Coronavirus OC43 (PCR) Not detected Coronavirus HKU1 (PCR) Not detected Coronavirus 229E (PCR) Not detected SARS-CoV-2 (PCR) Not detected Coronavirus NL63 (PCR) Not detected Human Metapneumovir PCR Not detected Influenza Type A (PCR) Not detected Influenza Type B (PCR) Not detected M. pneumoniae (PCR) Not detected Parainfluenza 1 (PCR) Not detected Parainfluenza 2 (PCR) Not detected Parainfluenza 3 (PCR) Not detected Parainfluenza 4 (PCR) Not detected RSV (PCR) Not detected Entero/Rhino (PCR) Not detected 12/01/23 12/01/23 12/01/23 13:35 13:59 14:18 WBC RBC Hgb Hct MCV MCH MCHC RDW Plt Count Neut % (Auto) Lymph % (Auto) Petroleum % (Auto) Eos % (Auto) Baso % (Auto) Neut # (Auto) Lymph # (Auto) Petroleum # (Auto) Eos # (Auto) Baso # (Auto) PT 14.7 H INR 1.3 APTT 35 ABG Sample Site Right radial ABG pH 7.41 ABG pCO2 31.6 L ABG pO2 77 L ABG HCO3 20 L ABG Total CO2 21 L ABG O2 Saturation 96 ABG Base Excess -5.0 L FiO2 32 Sodium Potassium Chloride Carbon Dioxide BUN Creatinine Estimated GFR BUN/Creatinine Ratio Glucose Lactate 2.7 H Calcium Magnesium 2.2 Total Bilirubin AST ALT Alkaline Phosphatase Total Creatine Kinase Troponin I NT-Pro-B Natriuret Pep 65781 H Total Protein Albumin Globulin Albumin/Globulin Ratio Chlamy pneumoniae PCR Adenovirus (PCR) B.parapertussis DNA PCR Coronavirus OC43 (PCR) Coronavirus HKU1 (PCR) Coronavirus 229E (PCR) SARS-CoV-2 (PCR) Coronavirus NL63 (PCR) Human Metapneumovir PCR Influenza Type A (PCR) Influenza Type B (PCR) M. pneumoniae (PCR) Parainfluenza 1 (PCR) Parainfluenza 2 (PCR) Parainfluenza 3 (PCR) Parainfluenza 4 (PCR) RSV (PCR) Entero/Rhino (PCR) 12/01/23 16:16 WBC RBC Hgb Hct MCV MCH MCHC RDW Plt Count Neut % (Auto) Lymph % (Auto) Petroleum % (Auto) Eos % (Auto) Baso % (Auto) Neut # (Auto) Lymph # (Auto) Petroleum # (Auto) Eos # (Auto) Baso # (Auto) PT INR APTT ABG Sample Site ABG pH ABG pCO2 ABG pO2 ABG HCO3 ABG Total CO2 ABG O2 Saturation ABG Base Excess FiO2 Sodium Potassium Chloride Carbon Dioxide BUN Creatinine Estimated GFR BUN/Creatinine Ratio Glucose Lactate 1.6 Calcium Magnesium Total Bilirubin AST ALT Alkaline Phosphatase Total Creatine Kinase Troponin I NT-Pro-B Natriuret Pep Total Protein Albumin Globulin Albumin/Globulin Ratio Chlamy pneumoniae PCR Adenovirus (PCR) B.parapertussis DNA PCR Coronavirus OC43 (PCR) Coronavirus HKU1 (PCR) Coronavirus 229E (PCR) SARS-CoV-2 (PCR) Coronavirus NL63 (PCR) Human Metapneumovir PCR Influenza Type A (PCR) Influenza Type B (PCR) M. pneumoniae (PCR) Parainfluenza 1 (PCR) Parainfluenza 2 (PCR) Parainfluenza 3 (PCR) Parainfluenza 4 (PCR) RSV (PCR) Entero/Rhino (PCR) Assessment & Plan Assessment & Plan narrative: 68-year-old female with left hip dislocation and unable to be reduced in the ER or by ortho. Assessment 1. Recurrent left hip dislocation currently not able to reduce Plan: Patient will be admitted and ortho has been consulted as management of dislocated hip will be per ortho as well as pain medication and PT guidance. Assessment 2. AFib with RVR Plan: Will hold her Eliquis tonight due to anticipated procedure tomorrow. Will restart metoprolol XL 200 mg twice daily. Assessment 3. Heart failure reduced ejection fraction without obvious acute exacerbation. Patient was given IV fluids due to dehydration and suspected that she was not having any p.o. intake for 24 hours and lying on the floor. Patient with rhabdomyolysis. We will decrease IV fluids to 75 cc an hour. Will repeat labs in the morning. Repeat CK and troponin. If patient has worsening oxygen requirements or shortness of breath we will give IV Lasix. Will restart the metoprolol. Assessment number for troponinemia Plan: I suspect is related to renal insufficiency rhabdomyolysis and possible sepsis. Patient has not had any chest pain no clinical symptoms and had a normal stress MIBI in June of 2023. Will repeat labs in the morning. Assessment 5. Rhabdomyolysis with reasonable kidney function. Plan: Will recheck in the a.m.. Etiology is being on the floor for over 24 hours. Will slowly and gently hydrate because of concerns for fluid overload due to EF being 25-30%. Will hold atorvastatin tonight Assessment 6. Acute renal insufficiency Plan: Will continue to monitor closely. She did receive hydration. Will hold the lisinopril tonight will reassess tomorrow her blood pressure vitals fluid status and GFR and consider restarting the lisinopril Assessment 7. Possible sepsis with chest x-ray concerning for pneumonia and patient with findings clinically the same. She received ceftriaxone and azithromycin in the ER. We will continue these. We will consult RT. We will continue with supplemental oxygen. Repeat lactate was normal. Patient does qualify for sepsis criteria given hypoxemia tachypnea renal insufficiency leukocytosis. Assessment 8. Hypothyroidism Plan: Continue levothyroxine 100 mcg daily Assessment 9. Depression stable on sertraline 25 mg daily Plan: Continue on 25 mg daily of sertraline. 77 minutes was spent with patient discussing with ER physician and patient and family and reviewing clinic chart and hospital chart and formulating a plan and documentation. Patient previously had said that she was DNR but we discussed this discussed with this means and she wishes to be full code. She will be given a pulse form to fill this out we will change this accordingly.
[2023-12-01] MEDS: HYDROCODONE/ACET 5/325 TABLET 1 TAB PO (18:34)
[2023-12-01] MEDS: SERTRALINE 50 MG TABLET 25 MG PO (20:54)
[2023-12-01] MEDS: METOPROLOL ER 50 MG TABLET 200 MG PO (20:54)
[2023-12-02] VITALS (41 sets, daily range): BP systolic 104–155; BP diastolic 65–96; PULSE 109–132; RESP 18–31; TEMP 36.1–37.4; O2SAT 92–99
[2023-12-02] MEDS: SODIUM CHLORIDE 0.9% 1,000 ML 75 ML IV ×2 (03:57→18:08)
[2023-12-02 04:42] LABS: Add Manual Diff / Slide Review NO; Basophils Absolute Auto 0 /uL (0-100); Basophils Percent Auto 0.3 % (0-2); Eosinophils Absolute Auto 0 /uL (0-450); Eosinophils Percent Auto 0.2 % (2-4); Hematocrit 39.2 % (36-46); Hemoglobin 12.8 g/dL (12.0-16.0); Lymphocytes Absolute Auto 1900 /uL (1100-4500); Lymphocytes Percent Auto 16.2 % (25-40); Mean Corpuscular HGB Conc 32.6 % (30-36); Mean Corpuscular Hemoglobin 30.1 PG (26-34); Mean Corpuscular Volume 92.3 fL (80-100); Monocytes Absolute Auto 1000 /uL (0-900); Monocytes Percent Auto 8.3 % (3-14); Neutrophils Absolute Auto 8600 /uL (1500-7000); Platelet Count 212 X10^3/uL (150-400); Red Blood Cell Count 4.24 X10^6/uL (4.0-5.2); White Blood Cell Count 11.5 X10^3/uL (4.5-11.0)
[2023-12-02 05:05] LABS: Creatine Kinase 853 U/L (30-135)
[2023-12-02 05:18] LABS: NT-proBNP (BNP-Adult 18+) 7660 pg/mL (<125); Troponin I 0.025 ng/mL (0.01-0.034)
[2023-12-02 05:29] LABS: HEMOLYSIS < 15 (0-50); Potassium 4.3 mmol/L (3.4-5.1)
[2023-12-02 05:30] LABS: Alanine Aminotransferase 26 IU/L (<35); Albumin 2.9 g/dL (3.5-5.0); Albumin Globulin Ratio 1.2 (1.0-2.8); Alkaline Phosphatase 67 U/L (38-126); Aspartate Aminotransferase 55 IU/L (14-36); BUN Creatinine Ratio 31.2 (6-22); Bilirubin Total 1.5 mg/dL (0.2-1.3); Blood Urea Nitrogen 34 mg/dL (7-17); Calcium 8.7 mg/dL (8.4-10.2); Carbon Dioxide 23 mmol/L (22-32); Chloride 111 mmol/L (98-107); Estimated Glomerular Filt Rate 55 mL/min (>60); Globulin 2.5 g/dL (1.7-4.1); Glucose 106 mg/dL (80-110); Sodium 138 mmol/L (137-145); Total Protein 5.4 g/dL (6.3-8.2)
[2023-12-02] MEDS: LEVOTHYROXINE 100 MCG TABLET PO (06:29)
[2023-12-02] MEDS: METOPROLOL ER 50 MG TABLET 200 MG PO ×2 (08:49→20:45)
--- NOTE | 2023-12-02 08:51 | PT-IP ANOTE ---
Pt arrived to hospital after 6th left hip dislocation. Reduction was not able to be done last date and she heads to the OR this date. PT confirms with nsg. Will d/c PT order and await new orders including activity level, WB and any hip precautions.
[2023-12-02] MEDS: HYDROCODONE/ACET 5/325 TABLET 1 TAB PO ×2 (10:26→20:45)
[2023-12-02] MEDS: LABETALOL 20 MG/4 ML SYRINGE 10 MG IV (10:27)
--- NOTE | 2023-12-02 10:43 | P.HP_ITS ---
History of Present Illness History of Present Illness Chief complaint: Modified Trauma Narrative: Amada is a pleasant 68-year-old female who is seen in the ICU this morning for orthopedic consult due to a dislocated left hip. Patient has a complicated past medical history including AFib with RVR, heart failure, CKD now with acute rhabdomyolysis and pneumonia being managed by medicine. Patient reports she dislocated her hip yesterday while drying off her leg as it was propped up on the toilet, she then fell to the ground and was down for 24 hours before a friend found her lying on the floor. Denies LOC or other injuries from the fall. She states this is not the first time her hip has dislocated. Reduction of the left hip was attempted in the ED yesterday w/o success. Left hip ERIC done by Dr. Christianson June 2018. Patient states her hip pain is tolerable and well controlled with [place]. Denies any numbness or tingling distal to the dislocation site. Patient lives alone and has limited outpatient support. Denies nausea, vomiting, fevers, chills, chest pain. 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 Surgical History H/O right breast biopsy History of colonoscopy with polypectomy History of total hip arthroplasty Social History household members: none Smoking Status: Never smoker alcohol intake: current Meds Home Medications and Allergies Home Medications Medication Instructions Recorded Confirmed Type sertraline 25 mg tablet 25 mg PO QDAY ##0 06/13/16 12/01/23 History levothyroxine 125 mcg tablet 125 mcg PO DAILY 06/22/18 12/01/23 History meloxicam 15 mg tablet 15 mg PO DAILY PRN Pain 06/22/18 12/01/23 History metoprolol succinate 100 mg 200 mg PO BID 06/22/18 12/01/23 History tablet,extended release 24 hr apixaban 5 mg tablet (Eliquis) 5 mg PO BID 12/01/23 12/01/23 History atorvastatin 40 mg tablet 40 mg PO DAILY 12/01/23 12/01/23 History furosemide 20 mg tablet 20 mg PO DAILY 12/01/23 12/01/23 History lisinopril 20 mg tablet 20 mg PO DAILY 12/01/23 12/01/23 History Allergies Allergy/AdvReac Type Severity Reaction Status Date / Time latex [LATEX] Allergy Severe Skin Verified 12/01/23 14:11 swelling, rash Sulfa (Sulfonamide Allergy Severe Neck turns Verified 12/01/23 14:11 Antibiotics) red [SULFA (SULFONAMIDE ANTIBIOTICS)] nickel AdvReac Irritation/ Verified 12/01/23 14:11 infection Exam Vital Signs (past 8 hours): - 12/02/23 02:59 12/02/23 03:00 12/02/23 03:00 Temperature Pulse Rate 115 H 112 H 112 H Respiratory Rate 23 23 23 Blood Pressure 111/67 Pulse Oximetry 97 97 97 Oxygen Delivery Method Oxygen Flow Rate 2 12/02/23 03:01 12/02/23 03:01 12/02/23 03:15 Temperature Pulse Rate 121 H 114 H Respiratory Rate 24 23 Blood Pressure 111/67 Pulse Oximetry 97 96 Oxygen Delivery Method Oxygen Flow Rate 12/02/23 03:30 12/02/23 03:31 12/02/23 03:31 Temperature Pulse Rate 117 H 116 H Respiratory Rate 24 23 Blood Pressure 125/77 Pulse Oximetry 97 97 Oxygen Delivery Method Oxygen Flow Rate 12/02/23 03:45 12/02/23 04:00 12/02/23 04:00 Temperature 98.9 F Pulse Rate 116 H 116 H Respiratory Rate 24 26 H Blood Pressure 126/76 126/76 Pulse Oximetry 97 97 Oxygen Delivery Method Oxygen Flow Rate 2 12/02/23 04:00 12/02/23 04:15 12/02/23 04:30 Temperature Pulse Rate 116 H 116 H Respiratory Rate 26 H 24 Blood Pressure 104/80 Pulse Oximetry 97 98 Oxygen Delivery Method Oxygen Flow Rate 12/02/23 04:30 12/02/23 04:45 12/02/23 05:00 Temperature Pulse Rate 119 H 113 H 111 H Respiratory Rate 24 23 24 Blood Pressure 105/89 Pulse Oximetry 97 97 97 Oxygen Delivery Method Oxygen Flow Rate 2 12/02/23 05:00 12/02/23 05:01 12/02/23 05:01 Temperature Pulse Rate 110 H 111 H Respiratory Rate 24 25 H Blood Pressure 105/89 Pulse Oximetry 96 97 Oxygen Delivery Method Oxygen Flow Rate 12/02/23 05:15 12/02/23 05:30 12/02/23 05:30 Temperature Pulse Rate 114 H 115 H Respiratory Rate 23 24 Blood Pressure 116/76 Pulse Oximetry 97 97 Oxygen Delivery Method Oxygen Flow Rate 12/02/23 05:45 12/02/23 06:00 12/02/23 06:00 Temperature Pulse Rate 115 H 117 H 117 H Respiratory Rate 24 24 24 Blood Pressure 129/73 Pulse Oximetry 97 97 97 Oxygen Delivery Method Oxygen Flow Rate 2 12/02/23 06:00 12/02/23 06:15 12/02/23 06:30 Temperature Pulse Rate 118 H 119 H Respiratory Rate 24 31 H Blood Pressure 129/73 Pulse Oximetry 97 98 Oxygen Delivery Method Oxygen Flow Rate 12/02/23 06:30 12/02/23 06:45 12/02/23 07:00 Temperature Pulse Rate 119 H Respiratory Rate 26 H Blood Pressure 118/72 Pulse Oximetry 94 Oxygen Delivery Method Nasal Cannula Oxygen Flow Rate 12/02/23 07:00 12/02/23 07:00 12/02/23 07:15 Temperature Pulse Rate 116 H 124 H Respiratory Rate 24 21 Blood Pressure 132/75 Pulse Oximetry 93 93 Oxygen Delivery Method Oxygen Flow Rate 12/02/23 07:30 12/02/23 07:45 12/02/23 08:00 Temperature 97.0 F L Pulse Rate 117 H 110 H 109 H Respiratory Rate 25 H 22 18 Blood Pressure 114/77 Pulse Oximetry 94 93 95 Oxygen Delivery Method Oxygen Flow Rate 0 12/02/23 09:00 12/02/23 09:24 12/02/23 10:00 Temperature 98.1 F 97.6 F Pulse Rate 110 H 112 H 118 H Respiratory Rate 21 20 Blood Pressure 155/96 H 125/87 118/82 Pulse Oximetry 97 96 Oxygen Delivery Method Oxygen Flow Rate 2 2 12/02/23 10:27 Temperature Pulse Rate 132 H Respiratory Rate Blood Pressure 118/85 Pulse Oximetry Oxygen Delivery Method Oxygen Flow Rate Fraction of Inspired Oxygen 28 SaO2/FiO2 Ratio 346 Oxygen Delivery Method [1031] Room Air Oxygen Delivery Method Nasal Cannula Oxygen Flow Rate 2 Narrative Exam Narrative: Lying in bed comfortably during interview today. Const General: cooperative, healthy appearing and comfortable Resp Effort & Inspection: normal respiratory effort and able to speak in complete sentences Cardio Other: Extremities are well perfused, pulses intact. Skin Other: No rash, skin lesions or ecchymosis of the left hip. Neuro General: patient alert, patient awake and patient oriented x3 Other: Sensation intact throughout BL lower extremities. Extrem Other: 5/5 strength with DF, PF, EHL bilaterally. Calves soft and non-tender bilaterally. Objective Labs 12/02/23 04:02 12/02/23 04:02 Labs: Laboratory Results - last 24 hr 12/01/23 12/01/23 12/01/23 11:15 11:51 13:00 WBC 17.5 H RBC 4.93 Hgb 14.9 Hct 45.0 MCV 91.3 MCH 30.3 MCHC 33.2 RDW 14.5 Plt Count 272 Neut % (Auto) 88.0 H Lymph % (Auto) 5.8 L Villalba % (Auto) 6.1 Eos % (Auto) 0.0 L Baso % (Auto) 0.1 Neut # (Auto) 82199 H Lymph # (Auto) 1000 L Vill[place]ba # (Auto) 1100 H Eos # (Auto) 0 Baso # (Auto) 0 PT 15.2 H INR 1.3 APTT ABG Sample Site ABG pH ABG pCO2 ABG pO2 ABG HCO3 ABG Total CO2 ABG O2 Saturation ABG Base Excess FiO2 Sodium 138 Potassium 4.6 Chloride 109 H Carbon Dioxide 19 L BUN 36 H Creatinine 1.21 H Estimated GFR 49 L BUN/Creatinine Ratio 29.8 H Glucose 130 H Lactate 2.5 H Calcium 9.6 Magnesium Total Bilirubin 2.3 H AST 75 H ALT 31 Alkaline Phosphatase 84 Total Creatine Kinase 1296 H Troponin I 0.063 H NT-Pro-B Natriuret Pep Total Protein 7.3 Albumin 4.1 Globulin 3.2 Albumin/Globulin Ratio 1.3 Chlamy pneumoniae PCR Not detected Adenovirus (PCR) Not detected B.parapertussis DNA PCR Not detected Coronavirus OC43 (PCR) Not detected Coronavirus HKU1 (PCR) Not detected Coronavirus 229E (PCR) Not detected SARS-CoV-2 (PCR) Not detected Coronavirus NL63 (PCR) Not detected Human Metapneumovir PCR Not detected Influenza Type A (PCR) Not detected Influenza Type B (PCR) Not detected M. pneumoniae (PCR) Not detected Parainfluenza 1 (PCR) Not detected Parainfluenza 2 (PCR) Not detected Parainfluenza 3 (PCR) Not detected Parainfluenza 4 (PCR) Not detected RSV (PCR) Not detected Entero/Rhino (PCR) Not detected 12/01/23 12/01/23 12/01/23 13:35 13:59 14:18 WBC RBC Hgb Hct MCV MCH MCHC RDW Plt Count Neut % (Auto) Lymph % (Auto) Villalba % (Auto) Eos % (Auto) Baso % (Auto) Neut # (Auto) Lymph # (Auto) Villalba # (Auto) Eos # (Auto) Baso # (Auto) PT 14.7 H INR 1.3 APTT 35 ABG Sample Site Right radial ABG pH 7.41 ABG pCO2 31.6 L ABG pO2 77 L ABG HCO3 20 L ABG Total CO2 21 L ABG O2 Saturation 96 ABG Base Excess -5.0 L FiO2 32 Sodium Potassium Chloride Carbon Dioxide BUN Creatinine Estimated GFR BUN/Creatinine Ratio Glucose Lactate 2.7 H Calcium Magnesium 2.2 Total Bilirubin AST ALT Alkaline Phosphatase Total Creatine Kinase Troponin I NT-Pro-B Natriuret Pep 15966 H Total Protein Albumin Globulin Albumin/Globulin Ratio Chlamy pneumoniae PCR Adenovirus (PCR) B.parapertussis DNA PCR Coronavirus OC43 (PCR) Coronavirus HKU1 (PCR) Coronavirus 229E (PCR) SARS-CoV-2 (PCR) Coronavirus NL63 (PCR) Human Metapneumovir PCR Influenza Type A (PCR) Influenza Type B (PCR) M. pneumoniae (PCR) Parainfluenza 1 (PCR) Parainfluenza 2 (PCR) Parainfluenza 3 (PCR) Parainfluenza 4 (PCR) RSV (PCR) Entero/Rhino (PCR) 12/01/23 12/02/23 16:16 04:02 WBC 11.5 H RBC 4.24 Hgb 12.8 Hct 39.2 MCV 92.3 MCH 30.1 MCHC 32.6 RDW 15.0 H Plt Count 212 Neut % (Auto) 75.0 Lymph % (Auto) 16.2 L Villalba % (Auto) 8.3 Eos % (Auto) 0.2 L Baso % (Auto) 0.3 Neut # (Auto) 8600 H Lymph # (Auto) 1900 [place] # (Auto) 1000 H Eos # (Auto) 0 Baso # (Auto) 0 PT INR APTT ABG Sample Site ABG pH ABG pCO2 ABG pO2 ABG HCO3 ABG Total CO2 ABG O2 Saturation ABG Base Excess FiO2 Sodium 138 Potassium 4.3 Chloride 111 H Carbon Dioxide 23 BUN 34 H Creatinine 1.09 H Estimated GFR 55 L BUN/Creatinine Ratio 31.2 H Glucose 106 Lactate 1.6 Calcium 8.7 Magnesium Total Bilirubin 1.5 H AST 55 H ALT 26 Alkaline Phosphatase 67 Total Creatine Kinase 853 H Troponin I 0.025 NT-Pro-B Natriuret Pep 7660 H Total Protein 5.4 L Albumin 2.9 L Globulin 2.5 Albumin/Globulin Ratio 1.2 Chlamy pneumoniae PCR Adenovirus (PCR) B.parapertussis DNA PCR Coronavirus OC43 (PCR) Coronavirus HKU1 (PCR) Coronavirus 229E (PCR) SARS-CoV-2 (PCR) Coronavirus NL63 (PCR) Human Metapneumovir PCR Influenza Type A (PCR) Influenza Type B (PCR) M. pneumoniae (PCR) Parainfluenza 1 (PCR) Parainfluenza 2 (PCR) Parainfluenza 3 (PCR) Parainfluenza 4 (PCR) RSV (PCR) Entero/Rhino (PCR) Assessment & Plan Assessment and plan (1) Dislocation, hip closed: Qualifiers: Laterality: left Status: Acute Plan X-Ray images pre and post most recent dislocation reviewed today by myself and Dr. Mart. Plan for Dr. Damien Mart to perform closed reduction of left hip this evening. Patient to be maintained on NPO status. SCDs should be in place and functioning while patient is in bed. Continue multimodal pain management.
[2023-12-02] MEDS: lisinopriL 20 MG TABLET PO (11:44)
--- NOTE | 2023-12-02 12:12 | P.PN_ITS ---
Subjective Subjective Date Patient Seen: 12/02/23 Time Patient Seen: 11:00 Interval history: CC: dislocated L hip Pt is stable awaiting reduction of hip this afternoon under anesthesia after ED efforts were unsuccessful. She is NPO until then and feeling ok except for muscle spasms in the hip which can be quite painful. She has had some elevated HR and BP likely 2/2 pain. Exam Vital Signs (past 8 hours): - 12/02/23 04:15 12/02/23 04:30 12/02/23 04:30 Temperature Pulse Rate 116 H 119 H Respiratory Rate 24 24 Blood Pressure 104/80 Pulse Oximetry 98 97 Oxygen Delivery Method Oxygen Flow Rate 12/02/23 04:45 12/02/23 05:00 12/02/23 05:00 Temperature Pulse Rate 113 H 111 H 110 H Respiratory Rate 23 24 24 Blood Pressure 105/89 Pulse Oximetry 97 97 96 Oxygen Delivery Method Oxygen Flow Rate 2 12/02/23 05:01 12/02/23 05:01 12/02/23 05:15 Temperature Pulse Rate 111 H 114 H Respiratory Rate 25 H 23 Blood Pressure 105/89 Pulse Oximetry 97 97 Oxygen Delivery Method Oxygen Flow Rate 12/02/23 05:30 12/02/23 05:30 12/02/23 05:45 Temperature Pulse Rate 115 H 115 H Respiratory Rate 24 24 Blood Pressure 116/76 Pulse Oximetry 97 97 Oxygen Delivery Method Oxygen Flow Rate 12/02/23 06:00 12/02/23 06:00 12/02/23 06:00 Temperature Pulse Rate 117 H 117 H Respiratory Rate 24 24 Blood Pressure 129/73 129/73 Pulse Oximetry 97 97 Oxygen Delivery Method Oxygen Flow Rate 2 12/02/23 06:15 12/02/23 06:30 12/02/23 06:30 Temperature Pulse Rate 118 H 119 H Respiratory Rate 24 31 H Blood Pressure 118/72 Pulse Oximetry 97 98 Oxygen Delivery Method Oxygen Flow Rate 12/02/23 06:45 12/02/23 07:00 12/02/23 07:00 Temperature Pulse Rate 119 H 116 H Respiratory Rate 26 H 24 Blood Pressure Pulse Oximetry 94 93 Oxygen Delivery Method Nasal Cannula Oxygen Flow Rate 12/02/23 07:00 12/02/23 07:15 12/02/23 07:30 Temperature Pulse Rate 124 H 117 H Respiratory Rate 21 25 H Blood Pressure 132/75 Pulse Oximetry 93 94 Oxygen Delivery Method Oxygen Flow Rate 12/02/23 07:45 12/02/23 08:00 12/02/23 09:00 Temperature 97.0 F L 98.1 F Pulse Rate 110 H 109 H 110 H Respiratory Rate 22 18 21 Blood Pressure 114/77 155/96 H Pulse Oximetry 93 95 97 Oxygen Delivery Method Oxygen Flow Rate 0 2 12/02/23 09:24 12/02/23 10:00 12/02/23 10:27 Temperature 97.6 F Pulse Rate 112 H 118 H 132 H Respiratory Rate 20 Blood Pressure 125/87 118/82 118/85 Pulse Oximetry 96 Oxygen Delivery Method Oxygen Flow Rate 2 12/02/23 11:00 12/02/23 11:12 Temperature 97.7 F Pulse Rate 119 H 114 H Respiratory Rate 19 Blood Pressure 116/65 116/65 Pulse Oximetry 95 Oxygen Delivery Method Oxygen Flow Rate 2 Fraction of Inspired Oxygen 28 SaO2/FiO2 Ratio 346 Oxygen Delivery Method [1031] Room Air Oxygen Delivery Method Nasal Cannula Oxygen Flow Rate 2 Narrative Exam Narrative: laying in bed Const General: cooperative and healthy appearing Nutritional Appearance: average body habitus Resp Other: moving air well, no supplemental O2 Cardio Other: elevated rate s1/s2 GI Other: soft nontender nondistended Neuro Other: alert and oriented moving all extremities cn 2-12 grossly intact Extrem Other: minimal pedal edema, good distal LLE pulse Objective Labs 12/02/23 04:02 12/02/23 04:02 Labs: Laboratory Results - last 24 hr 12/01/23 12/01/23 12/01/23 11:15 13:00 13:35 WBC RBC Hgb Hct MCV MCH MCHC RDW Plt Count Neut % (Auto) Lymph % (Auto) [place] % (Auto) Eos % (Auto) Baso % (Auto) Neut # (Auto) Lymph # (Auto) Archer # (Auto) Eos # (Auto) Baso # (Auto) PT 14.7 H INR 1.3 APTT 35 ABG Sample Site ABG pH ABG pCO2 ABG pO2 ABG HCO3 ABG Total CO2 ABG O2 Saturation ABG Base Excess FiO2 Sodium Potassium Chloride Carbon Dioxide BUN Creatinine Estimated GFR BUN/Creatinine Ratio Glucose Lactate Calcium Magnesium 2.2 Total Bilirubin AST ALT Alkaline Phosphatase Total Creatine Kinase Troponin I 0.063 H NT-Pro-B Natriuret Pep 87479 H Total Protein Albumin Globulin Albumin/Globulin Ratio Chlamy pneumoniae PCR Not detected Adenovirus (PCR) Not detected B.parapertussis DNA PCR Not detected Coronavirus OC43 (PCR) Not detected Coronavirus HKU1 (PCR) Not detected Coronavirus 229E (PCR) Not detected SARS-CoV-2 (PCR) Not detected Coronavirus NL63 (PCR) Not detected Human Metapneumovir PCR Not detected Influenza Type A (PCR) Not detected Influenza Type B (PCR) Not detected M. pneumoniae (PCR) Not detected Parainfluenza 1 (PCR) Not detected Parainfluenza 2 (PCR) Not detected Parainfluenza 3 (PCR) Not detected Parainfluenza 4 (PCR) Not detected RSV (PCR) Not detected Entero/Rhino (PCR) Not detected 12/01/23 12/01/23 12/01/23 13:59 14:18 16:16 WBC RBC Hgb Hct MCV MCH MCHC RDW Plt Count Neut % (Auto) Lymph % (Auto) [place] % (Auto) Eos % (Auto) Baso % (Auto) Neut # (Auto) Lymph # (Auto) Archer # (Auto) Eos # (Auto) Baso # (Auto) PT INR APTT ABG Sample Site Right radial ABG pH 7.41 ABG pCO2 31.6 L ABG pO2 77 L ABG HCO3 20 L ABG Total CO2 21 L ABG O2 Saturation 96 ABG Base Excess -5.0 L FiO2 32 Sodium Potassium Chloride Carbon Dioxide BUN Creatinine Estimated GFR BUN/Creatinine Ratio Glucose Lactate 2.7 H 1.6 Calcium Magnesium Total Bilirubin AST ALT Alkaline Phosphatase Total Creatine Kinase Troponin I NT-Pro-B Natriuret Pep Total Protein Albumin Globulin Albumin/Globulin Ratio Chlamy pneumoniae PCR Adenovirus (PCR) B.parapertussis DNA PCR Coronavirus OC43 (PCR) Coronavirus HKU1 (PCR) Coronavirus 229E (PCR) SARS-CoV-2 (PCR) Coronavirus NL63 (PCR) Human Metapneumovir PCR Influenza Type A (PCR) Influenza Type B (PCR) M. pneumoniae (PCR) Parainfluenza 1 (PCR) Parainfluenza 2 (PCR) Parainfluenza 3 (PCR) Parainfluenza 4 (PCR) RSV (PCR) Entero/Rhino (PCR) 12/02/23 04:02 WBC 11.5 H RBC 4.24 Hgb 12.8 Hct 39.2 MCV 92.3 MCH 30.1 MCHC 32.6 RDW 15.0 H Plt Count 212 Neut % (Auto) 75.0 Lymph % (Auto) 16.2 L Archer % (Auto) 8.3 Eos % (Auto) 0.2 L Baso % (Auto) 0.3 Neut # (Auto) 8600 H Lymph # (Auto) 1900 Archer # (Auto) 1000 H Eos # (Auto) 0 Baso # (Auto) 0 PT INR APTT ABG Sample Site ABG pH ABG pCO2 ABG pO2 ABG HCO3 ABG Total CO2 ABG O2 Saturation ABG Base Excess FiO2 Sodium 138 Potassium 4.3 Chloride 111 H Carbon Dioxide 23 BUN 34 H Creatinine 1.09 H Estimated GFR 55 L BUN/Creatinine Ratio 31.2 H Glucose 106 Lactate Calcium 8.7 Magnesium Total Bilirubin 1.5 H AST 55 H ALT 26 Alkaline Phosphatase 67 Total Creatine Kinase 853 H Troponin I 0.025 NT-Pro-B Natriuret Pep 7660 H Total Protein 5.4 L Albumin 2.9 L Globulin 2.5 Albumin/Globulin Ratio 1.2 Chlamy pneumoniae PCR Adenovirus (PCR) B.parapertussis DNA PCR Coronavirus OC43 (PCR) Coronavirus HKU1 (PCR) Coronavirus 229E (PCR) SARS-CoV-2 (PCR) Coronavirus NL63 (PCR) Human Metapneumovir PCR Influenza Type A (PCR) Influenza Type B (PCR) M. pneumoniae (PCR) Parainfluenza 1 (PCR) Parainfluenza 2 (PCR) Parainfluenza 3 (PCR) Parainfluenza 4 (PCR) RSV (PCR) Entero/Rhino (PCR) [facility] Medical History (Updated 12/01/23 @ 16:23 by Eri Palencia MD) Rosacea Diarrhea Murmur Hypothyroid Hypertension LBBB (left bundle branch block) Unilateral primary osteoarthritis, 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 Surgical History H/O right breast biopsy History of colonoscopy with polypectomy History of total hip arthroplasty Social History household members: none Smoking Status: Never smoker alcohol intake: current Assessment & Plan Assessment & Plan narrative: 68-year-old female with left hip dislocation and unable to be reduced in the ER #Recurrent left hip dislocation currently not able to reduce Ortho will reduce in OR this evening, NPO until then with pain control AFib with RVR Continue to hold Eliquis due to anticipated procedure, continue home metoprolol XL 200 mg twice daily. #Heart failure reduced ejection fraction without obvious acute exacerbation. BNP noted, watching for possible pulmonary edema, looks ok today #troponinemia Likely 2/2 renal insufficiency rhabdomyolysis and possible sepsis. Patient has not had any chest pain no clinical symptoms and had a normal stress MIBI in June of 2023. Labs look better this morning. #Rhabdomyolysis Continue fluids, hold statin #Acute renal insufficiency Monitor - resume lisinopril - hydrate #hypertension resume home FAWN, BB - prn labetalol #Possible sepsis with chest x-ray concerning for pneumonia Received ceftriaxone and azithromycin in the ER, continue with RT and supplemental O2. Repeat lactate was normal. Improving. #Hypothyroidism acquired Stable continue home levothyroxine 100 mcg daily #Depression Stable continue 25 mg daily of sertraline. dispo: pending surgery PCP: shon code: full diet: NPO until
[2023-12-02] MEDS: AZITHROMYCIN 500 MG in DEXTROSE 5% IN WATER 250 ML 250 MG IV (12:25)
[2023-12-02] MEDS: cefTRIAXone 1,000 MG in SODIUM CHLORIDE 0.9% 100 ML 200 MG IV (13:23)
[2023-12-02 13:52] LABS: MRSA (Nasal) PCR Not Detected (Not Detect)
[2023-12-02] MEDS: MORPHINE 2 MG/ML INJ IV (13:53)
[2023-12-02] MEDS: SERTRALINE 50 MG TABLET 25 MG PO (20:45)
[2023-12-02] MEDS: ATORVASTATIN 20 MG TABLET PO (20:46)
[2023-12-02] MEDS: LORazepam 2 MG/ML INJ 0.5 MG IV (20:53)
[2023-12-03] VITALS (35 sets, daily range): BP systolic 101–135; BP diastolic 64–87; PULSE 83–114; RESP 14–29; TEMP 35.8–37.1; O2SAT 91–96; BMI 36.4
--- NOTE | 2023-12-03 | DI.RAD.S_ITS ---
PROCEDURE: XR HIP LT 1V INDICATIONS: REDUCTION TECHNIQUE: Single-view of the hip was acquired. COMPARISON: [facility], CR, XR HIP W PEL IF DONE LT 2V, 12/01/2023, 10:41. [facility], CR, XR HIP W PEL IF DONE LT 2V, 07/05/2018, 17:24. FINDINGS: Bones: No fractures or dislocations. No suspicious bony lesions. The visualized pelvic ring appears intact. No sign of left hip arthroplasty disruption. Soft tissues: No suspicious soft tissue calcifications or masses. IMPRESSION: Successful reduction of left hip arthroplasty dislocation. No fracture found. Dictated by: Timbo Kim M.D. on 12/03/2023 at 13:12 Approved by: Timbo Kim M.D. on 12/03/2023 at 13:13
[2023-12-03] MEDS: LEVOTHYROXINE 100 MCG TABLET PO (05:50)
[2023-12-03] MEDS: SODIUM CHLORIDE 0.9% 1,000 ML 75 ML IV (07:19)
[2023-12-03] MEDS: HYDROCODONE/ACET 5/325 TABLET 1 TAB PO (09:31)
[2023-12-03] MEDS: lisinopriL 20 MG TABLET PO (09:32)
[2023-12-03] MEDS: METOPROLOL ER 50 MG TABLET 200 MG PO ×2 (09:32→20:54)
[2023-12-03 09:39] LABS: Add Manual Diff / Slide Review NO; Basophils Absolute Auto 0 /uL (0-100); Basophils Percent Auto 0.4 % (0-2); Eosinophils Absolute Auto 100 /uL (0-450); Eosinophils Percent Auto 1.3 % (2-4); Hematocrit 35.8 % (36-46); Lymphocytes Absolute Auto 2000 /uL (1100-4500); Lymphocytes Percent Auto 23.4 % (25-40); Mean Corpuscular HGB Conc 33.4 % (30-36); Mean Corpuscular Hemoglobin 30.9 PG (26-34); Mean Corpuscular Volume 92.5 fL (80-100); Monocytes Absolute Auto 800 /uL (0-900); Monocytes Percent Auto 8.7 % (3-14); Neutrophils Absolute Auto 5800 /uL (1500-7000); Neutrophils Percent Auto 66.2 % (50-75); Platelet Count 179 X10^3/uL (150-400); Red Blood Cell Count 3.87 X10^6/uL (4.0-5.2); Red Cell Distribution Width 14.8 % (11.6-14.8); White Blood Cell Count 8.7 X10^3/uL (4.5-11.0)
[2023-12-03 09:58] LABS: Alanine Aminotransferase 24 IU/L (<35); Albumin 2.9 g/dL (3.5-5.0); Alkaline Phosphatase 61 U/L (38-126); Aspartate Aminotransferase 39 IU/L (14-36); BUN Creatinine Ratio 29.5 (6-22); Bilirubin Total 1.1 mg/dL (0.2-1.3); Blood Urea Nitrogen 28 mg/dL (7-17); Calcium 8.5 mg/dL (8.4-10.2); Carbon Dioxide 23 mmol/L (22-32); Chloride 113 mmol/L (98-107); Creatine Kinase 453 U/L (30-135); Estimated Glomerular Filt Rate > 60 mL/min (>60); Globulin 2.8 g/dL (1.7-4.1); Glucose 88 mg/dL (80-110); HEMOLYSIS < 15 (0-50); Potassium 4.1 mmol/L (3.4-5.1); Sodium 138 mmol/L (137-145); Total Protein 5.7 g/dL (6.3-8.2)
[2023-12-03 10:06] LABS: NT-proBNP (BNP-Adult 18+) 3610 pg/mL (<125)
--- NOTE | 2023-12-03 11:47 | PM.PREOP ---
Pre-operative Note Interval Note History & Physical reviewed/Exam performed by Physician: Yes Changes to H&P: No
--- NOTE | 2023-12-03 11:48 | P.OP_ITS ---
Operative Date/Time/Diagnoses Date of procedure: 12/03/23 Time of procedure: 11:15 Pre-op diagnosis: 1. Left hip posterior dislocation with history of left total hip arthroplasty Post-op diagnosis: same Procedure & Clinicians Procedure: left hip close reduction under general anesthesia Same procedure as scheduled: Yes Indications: Ms. Christianson is a 68 yo F with history of ground level fall 1 week ago. She was not able to get up and was not able to get help until 5 days later. She had UTI, rhabdomyolysis along with other medical issues and was admitted to medicine service for medical optimization. Patient was found to have left hip dislocation status post previous total hip arthroplasty by Dr. Christianson in 2018. ER attempted close reduction under sedation was not able to relocate the hip. Orthopedic service was consulted. The treatment plan was to close reduce patient's left hip under anesthesia. Patient was not medically stable to undergo general anesthesia due to her acute rhabdomyolysis for the first 2 hospital days per anesthesia's assessment. Today patient was medically optimized and cleared by Anesthesia to undergo the procedure. Surgeon: Brian Singh Neon Glass Bender: Damien Mart Click Yes if Unassisted: No Anesthesia Type: General Operative Notes Specimen(s): none sent Estimated Blood Loss (mL): 0 Blood products transfused: none Procedure in detail: Patient was identified in the preoperative area. Informed consent was obtained and placed in the chart. The affected leg was marked. Patient was taken to the operative room. General anesthesia was given to the patient patient. Time-out was performed. Patient's affected hip was flexed internally rotated and was then put in traction. While in traction the hip was slowly extended external rotated. A clunk was felt during this maneuver. X-ray was used to confirm the hip was reduced in the desired position. After the procedure was completed there were superficial skin abrasions in her left groin area from the counter traction applied manually during the reduction maneuver. The abrasions are superficial and does not need additional treatment besides monitoring at this time. Patient tolerated the procedure well I was placed into abduction pillow. Patient was then transferred recovery room stable condition. Complications: none Post-operative Condition: stable Disposition: PACU Plan for aftercare: Admit back inpatient hospital medical service
--- NOTE | 2023-12-03 12:17 | SUR.PHASEI ---
Report called to Montserrat Beatty.
--- NOTE | 2023-12-03 12:40 | SUR.PHASEI ---
Patient transferred to the floor. Condition stable.
--- NOTE | 2023-12-03 13:02 | P.PN_ITS ---
Subjective Subjective Interval history: Hospital day 3. For this pleasant 68-year-old female who had hip dislocation of prosthetic hip, left on Wednesday. Patient just had this put back in today and is feeling markedly better. Patient tolerated lunch without difficulty. No nausea or vomiting. No shortness of breath. She feels her breathing is much better. Patient is stooling. Patient denies chest pain lightheadedness or dizziness. Twelve point review of systems otherwise negative Exam Vital Signs (past 8 hours): - 12/03/23 05:15 12/03/23 05:30 12/03/23 05:45 Temperature Pulse Rate 83 90 87 Respiratory Rate 17 19 18 Blood Pressure Pulse Oximetry 95 95 95 Oxygen Delivery Method 12/03/23 06:00 12/03/23 06:15 12/03/23 06:30 Temperature Pulse Rate 92 H 88 88 Respiratory Rate 19 24 29 H Blood Pressure Pulse Oximetry 95 95 94 Oxygen Delivery Method 12/03/23 06:45 12/03/23 07:00 12/03/23 07:15 Temperature Pulse Rate 86 88 99 H Respiratory Rate 19 22 19 Blood Pressure Pulse Oximetry 94 93 94 Oxygen Delivery Method 12/03/23 07:30 12/03/23 07:45 12/03/23 08:00 Temperature Pulse Rate 93 H 89 Respiratory Rate 20 20 Blood Pressure 132/79 Pulse Oximetry 94 94 Oxygen Delivery Method 12/03/23 08:00 12/03/23 08:56 12/03/23 09:32 Temperature 98.7 F Pulse Rate 92 H 92 H Respiratory Rate 20 Blood Pressure 132/79 Pulse Oximetry 94 Oxygen Delivery Method 12/03/23 09:32 12/03/23 10:33 12/03/23 10:45 Temperature 98.4 F Pulse Rate 92 H 101 H 109 H Respiratory Rate 18 Blood Pressure 132/79 132/86 Pulse Oximetry 94 Oxygen Delivery Method Room Air 12/03/23 11:59 12/03/23 12:04 12/03/23 12:09 Temperature 98.2 F Pulse Rate 104 H 102 H 98 H Respiratory Rate 16 21 19 Blood Pressure 123/83 112/87 108/82 Pulse Oximetry 92 92 91 Oxygen Delivery Method Room Air Room Air Room Air 12/03/23 12:15 Temperature Pulse Rate 92 H Respiratory Rate 20 Blood Pressure 125/75 Pulse Oximetry 92 Oxygen Delivery Method Room Air Fraction of Inspired Oxygen 28 SaO2/FiO2 Ratio 346 Oxygen Delivery Method [1031] Room Air Oxygen Delivery Method Room Air Oxygen Flow Rate 0 Narrative Exam Narrative: Patient is alert and oriented x3 in no apparent distress Patient appears much better than when I saw her on Wednesday. She just came back from the OR and had her hip put in in his feeling markedly better Afebrile vital signs are stable blood pressure has been a little bit higher today and heart rate in the 90s HEENT unremarkable Neck: Supple without adenopathy or thyromegaly Chest: Clear to auscultation without wheezes rhonchi or crackles Cor: Irregularly irregular rhythm at a rate in the 90s Abdomen: Positive bowel sounds x4, nontender, nondistended Extremities: No edema, warm, pulses intact Objective Labs 12/03/23 09:18 12/03/23 09:18 Labs: Laboratory Results - last 24 hr 12/02/23 12/03/23 06:37 09:18 WBC 8.7 RBC 3.87 L Hgb 12.0 Hct 35.8 L MCV 92.5 MCH 30.9 MCHC 33.4 RDW 14.8 Plt Count 179 Neut % (Auto) 66.2 Lymph % (Auto) 23.4 L [place] % (Auto) 8.7 Eos % (Auto) 1.3 L Baso % (Auto) 0.4 Neut # (Auto) 5800 Lymph # (Auto) 2000 [place] # (Auto) 800 Eos # (Auto) 100 Baso # (Auto) 0 Sodium 138 Potassium 4.1 Chloride 113 H Carbon Dioxide 23 BUN 28 H Creatinine 0.95 Estimated GFR > 60 BUN/Creatinine Ratio 29.5 H Glucose 88 Calcium 8.5 Total Bilirubin 1.1 AST 39 H ALT 24 Alkaline Phosphatase 61 Total Creatine Kinase 453 H D NT-Pro-B Natriuret Pep 3610 H Total Protein 5.7 L Albumin 2.9 L Globulin 2.8 Albumin/Globulin Ratio 1.0 Nasal Screen MRSA (PCR) Not detected [facility] Medical History (Updated 12/02/23 @ 12:57 by Tracey Padron PA-C) Rosacea Diarrhea Murmur Hypothyroid Hypertension LBBB (left bundle branch block) Unilateral primary osteoarthritis, 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 Surgical History H/O right breast biopsy History of colonoscopy with polypectomy History of total hip arthroplasty Social History household members: none Smoking Status: Never smoker alcohol intake: current Assessment & Plan Assessment & Plan narrative: 68-year-old female with left hip dislocation and unable to be reduced in the ER or by ortho. Assessment 1. Recurrent left hip dislocation status post reduction by ortho today. Plan: Further management and pain control per ortho. Question long-term prognosis of hip that has been dislocated 6 times and options for permanent fixation. Assessment 2. AFib with RVR Plan: Rate has been well-controlled since pain has been controlled and patient is back on her metoprolol 200 mg twice daily. Will go ahead and restart her Eliquis Assessment 3. Heart failure reduced ejection fraction without obvious acute exacerbation. We will discontinue IV fluids. Patient has not had any exacerbation or problems. Last ejection fraction 25-30%. Troponins negative. Assessment number for troponinemia. Resolved. Plan: I suspect is related to renal insufficiency rhabdomyolysis and possible sepsis. Patient has not had any chest pain no clinical symptoms and had a normal stress MIBI in June of 2023. Will repeat labs in the morning. Assessment 5. Rhabdomyolysis due to lying down for 24 hours due to hip dislocation and fall. Will recheck tomorrow and anticipate patient can possibly go home pending per ortho. We will go ahead and stop IV fluids and recheck tomorrow. Plan: Will recheck in the a.m.. Etiology is being on the floor for over 24 hours. Will slowly and gently hydrate because of concerns for fluid overload due to EF being 25-30%. Will hold atorvastatin until CK back to normal Assessment 6. Acute renal insufficiency improved with hydration and treatment of rhabdomyolysis. Patient is back on lisinopril without any difficulties Plan: Will continue to monitor closely. She did receive hydration. Assessment 7. Possible sepsis with chest x-ray concerning for pneumonia and patient with findings clinically the same. She received ceftriaxone and azithromycin in the ER. We will continue these. We will consult RT. We will continue with supplemental oxygen. Repeat lactate was normal. Patient does qualify for sepsis criteria given hypoxemia tachypnea renal insufficiency leukocytosis. Leukocytosis, tachypnea and hypoxemia have all resolved. Will continue with probable 5 day course of antibiotics upon discharge. Assessment 8. Hypothyroidism Plan: Continue levothyroxine 100 mcg daily Assessment 9. Depression stable on sertraline 25 mg daily Plan: Continue on 25 mg daily of sertraline. Code status is full code Disposition will have to see how she does with physical therapy. Patient does live alone but I think will help likely could go home either Wednesday or Wednesday with PT at home. She has supportive community that could check in on her. 57 minutes was spent with patient and reviewing diagnostics, chart, discussing with physicians and nurses, formulating a plan and documentation
--- NOTE | 2023-12-03 15:39 | CM.DANOTE ---
Initial DCP Assessment Note Pt is a 68 yo female, resident of [place], fell at home and was found down by a friend. Patient has hx of multiple hip dislocations since hip repair in 2018, now with an additional dislocation and scheduled for closed reduction in the OR tonight. PCP: Evelia Valera Payer: García FRANCO/IJEOMA Reviewed chart, pt discussed patient w/provider. Patient hopeful to return home with assist from supportive family and friends. Met w/patient to introduce self and role. Patient lives alone, indp in all aspects, has many supportive friends, no local family. No children. Patient reports her brother Ambrose is able to visit and possibly assist patient in her recovery. Discussed home health services and patient agreeable, no agency preference. OR today with therapies ordered after closed reduction to assist with dispo planning. CM team will plan to follow closely for continued assessment of need and coordination of DCP. DESTIN Valdes Discharge Planning/Care Management CM Discharge Assessment Start: 12/03/23 15:37 Freq: Status: Active Protocol: Document 12/03/23 15:37 ELSA (Rec: 12/03/23 15:39 ELSA [id number]) Discharge Planning Assessment Assigned Service Writer Advisor DESTIN Davis DPOA/Assigned Designee Name brother Denise Contact Information [phone] Advance Directives? Yes: POLST Advance Directives on File No History Provided By Patient,Medical Record Prior Living Arrangements House Household Members none Type of transporation used prior to Drives own vehicle admit Independent with ADL's Yes Is patient alert and oriented? Yes Patient/Family Preference Home with Home Health Barriers to Discharge Yes Comment May need assistance. Patient hopeful to discharge home w/ friends and family (brother visiting from [place] soon) Discharge Plan Home with Home Health Additional Comment Awaiting therapy evals, HH vs SNF SNF/HH Preference No HH preference
[2023-12-03] MEDS: SERTRALINE 50 MG TABLET 25 MG PO (20:52)
[2023-12-03] MEDS: APIXABAN 5 MG TABLET PO (20:53)
[2023-12-03] MEDS: SENNOSIDES 8.6 MG TABLET 17.2 MG PO (20:53)
[2023-12-03] MEDS: DOCUSATE 100 MG CAPSULE PO (20:53)
[2023-12-03] MEDS: ATORVASTATIN 20 MG TABLET 40 MG PO (20:53)
[2023-12-04] VITALS (13 sets, daily range): BP systolic 105–127; BP diastolic 67–87; PULSE 63–95; RESP 16–17; TEMP 36–37.2; O2SAT 93–98
[2023-12-04 04:50] LABS: Add Manual Diff / Slide Review NO; Basophils Absolute Auto 0 /uL (0-100); Basophils Percent Auto 0.1 % (0-2); Eosinophils Absolute Auto 0 /uL (0-450); Hematocrit 33.7 % (36-46); Hemoglobin 11.2 g/dL (12.0-16.0); Lymphocytes Absolute Auto 700 /uL (1100-4500); Lymphocytes Percent Auto 8.5 % (25-40); Mean Corpuscular HGB Conc 33.3 % (30-36); Mean Corpuscular Hemoglobin 30.7 PG (26-34); Mean Corpuscular Volume 92.3 fL (80-100); Monocytes Absolute Auto 500 /uL (0-900); Monocytes Percent Auto 6.9 % (3-14); Neutrophils Absolute Auto 6700 /uL (1500-7000); Neutrophils Percent Auto 84.5 % (50-75); Platelet Count 192 X10^3/uL (150-400); Red Blood Cell Count 3.65 X10^6/uL (4.0-5.2); Red Cell Distribution Width 13.9 % (11.6-14.8); White Blood Cell Count 7.9 X10^3/uL (4.5-11.0)
[2023-12-04 05:06] LABS: Creatine Kinase 265 U/L (30-135)
[2023-12-04 05:09] LABS: Alanine Aminotransferase 86 IU/L (<35); Albumin 3.3 g/dL (3.5-5.0); Albumin Globulin Ratio 1.4 (1.0-2.8); Alkaline Phosphatase 80 U/L (38-126); Aspartate Aminotransferase 94 IU/L (14-36); Bilirubin Total 0.7 mg/dL (0.2-1.3); Blood Urea Nitrogen 30 mg/dL (7-17); Calcium 8.7 mg/dL (8.4-10.2); Carbon Dioxide 25 mmol/L (22-32); Chloride 110 mmol/L (98-107); Estimated Glomerular Filt Rate > 60 mL/min (>60); Globulin 2.4 g/dL (1.7-4.1); Glucose 133 mg/dL (80-110); HEMOLYSIS < 15 (0-50); Potassium 4.6 mmol/L (3.4-5.1); Sodium 137 mmol/L (137-145); Total Protein 5.7 g/dL (6.3-8.2)
[2023-12-04 05:16] LABS: NT-proBNP (BNP-Adult 18+) 5570 pg/mL (<125)
[2023-12-04] MEDS: LEVOTHYROXINE 125 MCG TABLET PO (06:13)
--- NOTE | 2023-12-04 06:19 | P.PN_ITS ---
Subjective Subjective Date Patient Seen: 12/04/23 Interval history: The pt reports feeling significantly improved this morning. Her pain is quite minimal. She has not yet been up and ambulated. She is very encouraged by her progress and grateful for the help she has received. Exam Vital Signs (past 8 hours): - 12/04/23 00:00 12/04/23 04:05 Temperature 96.8 F L 96.8 F L Pulse Rate 92 H 74 Respiratory Rate 17 17 Blood Pressure 116/87 105/74 Pulse Oximetry 93 96 Fraction of Inspired Oxygen 28 SaO2/FiO2 Ratio 346 Oxygen Delivery Method [1031] Room Air Oxygen Delivery Method Room Air Oxygen Flow Rate 0 Narrative Exam Narrative: Gen: NAD, sitting comfortably in bed, appears well CV: irregularly irregular rhythm, normal rate, no murmurs Resp: clear to auscultation bilaterally Abd: soft, nontender, nondistended Ext: no edema Objective Labs 12/04/23 04:10 12/04/23 04:10 Labs: Laboratory Results - last 24 hr 12/03/23 12/04/23 09:18 04:10 WBC 8.7 7.9 RBC 3.87 L 3.65 L Hgb 12.0 11.2 L Hct 35.8 L 33.7 L MCV 92.5 92.3 MCH 30.9 30.7 MCHC 33.4 33.3 RDW 14.8 13.9 Plt Count 179 192 Neut % (Auto) 66.2 84.5 H Lymph % (Auto) 23.[address] [place] [place] % (Auto) 8.7 6.9 Eos % (Auto) 1.3 L 0.0 L Baso % (Auto) 0.4 0.1 Neut # (Auto) 5800 6700 Lymph # (Auto) [address] [place] # (Auto) 800 500 Eos # (Auto) 100 0 Baso # (Auto) 0 0 Sodium 138 137 Potassium 4.1 4.6 Chloride 113 H 110 H Carbon Dioxide 23 25 BUN 28 H 30 H Creatinine 0.95 0.91 Estimated GFR > 60 > 60 BUN/Creatinine Ratio 29.5 H 33.0 H Glucose 88 133 H Calcium 8.5 8.7 Total Bilirubin 1.1 0.7 AST 39 H 94 H ALT 24 86 H Alkaline Phosphatase 61 80 Total Creatine Kinase 453 H D 265 H NT-Pro-B Natriuret Pep 3610 H 5570 H Total Protein 5.7 L 5.7 L Albumin 2.9 L 3.3 L Globulin 2.8 2.4 Albumin/Globulin Ratio 1.0 1.4 PFSH Medical History (Updated 12/02/23 @ 12:57 by Tracey Padron PA-C) Rosacea Diarrhea Murmur Hypothyroid Hypertension LBBB (left bundle branch block) Unilateral primary osteoarthritis, 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 Surgical History H/O right breast biopsy History of colonoscopy with polypectomy History of total hip arthroplasty Social History household members: none Smoking Status: Never smoker alcohol intake: current Assessment & Plan Assessment & Plan narrative: Pt is a 68yo woman with atrial fibrillation, hypothyroidism, HTN, chronic systolic CHF, and depression who presented after being found down at home after 24hrs. She had a dislocated left hip, rhabdomyolysis, acute kidney injury. 1) Dislocated left hip: POD #1 s/p closed reduction under anesthesia. Pain well controlled. - Continue management as per Ortho - PT/OT to see the patient today - Oxycodone for pain control 2) Atrial fibrillation: Currently rate controlled - Continue home Eliquis, Metoprolol 3) Chronic systolic heart failure: Last EF 25-30%. Elevated BNP but no clinical evidence of fluid overload. - Continue to monitor respiratory status, if worsening will give IV Lasix 4) Rhabdomyolysis: CK trending down still - Continue to trend 5) TRAN: Resolved, back to baseline - Continue to trend 6) HTN: - Home antihypertensives resumed 7) Pneumonia: Meeting criteria for sepsis at admission. Respiratory status stable. Pt does detail potentially aspirating when she was down. - Continue Ceftriaxone and Azithromycin for full treatment course 8) Hypothyroidism: - Continue home Levothyroxine 9) Depression: Stable - Continue home Sertraline FEN: Normal diet DVT ppx: On Eliquis as above Code: Full Dispo: Pending eval from physical therapy. Will have care management set-up home health. Likely d/c tomorrow.
[2023-12-04] MEDS: APIXABAN 5 MG TABLET PO ×2 (08:00→21:12)
[2023-12-04] MEDS: DOCUSATE 100 MG CAPSULE PO ×2 (08:00→21:15)
[2023-12-04] MEDS: lisinopriL 20 MG TABLET PO (08:03)
[2023-12-04] MEDS: FUROSEMIDE 20 MG TABLET PO (08:03)
[2023-12-04] MEDS: METOPROLOL ER 50 MG TABLET 200 MG PO ×2 (08:04→21:13)
--- NOTE | 2023-12-04 11:33 | PM.PNPO.1 ---
Subjective Subjective Date Patient Seen: 12/04/23 Time Patient Seen: 11:34 Interval history: Hip pain is mild. Patient has not yet been out of bed. Denies any fever chills. No nausea vomiting. Exam Vital Signs (past 8 hours): - 12/04/23 04:05 12/04/23 07:00 12/04/23 08:00 Temperature 96.8 F L 97.2 F L Pulse Rate 74 65 Respiratory Rate 17 16 Blood Pressure 105/74 113/72 Pulse Oximetry 96 97 Oxygen Delivery Method Room Air Oxygen Flow Rate 0 12/04/23 08:03 12/04/23 08:04 12/04/23 08:34 Temperature Pulse Rate 82 82 95 H Respiratory Rate Blood Pressure 113/72 127/78 Pulse Oximetry Oxygen Delivery Method Oxygen Flow Rate Fraction of Inspired Oxygen 28 SaO2/FiO2 Ratio 346 Oxygen Delivery Method [1031] Room Air Oxygen Delivery Method Room Air Oxygen Flow Rate 0 Narrative Exam Narrative: 60-year-old female resting comfortably in bed in no apparent distress. Motor functions intact bilateral lower extremities. Sensation grossly intact to light touch bilateral lower extremities. Wedge pillow in place. Const General: cooperative and comfortable Nutritional Appearance: obese (BMI 36.7) Orientation: alert Chest Chest: normal inspection of the chest and normal palpation of entire chest wall Objective Labs 12/04/23 04:10 12/04/23 04:10 Labs: Laboratory Results - last 24 hr 12/04/23 04:10 WBC 7.9 RBC 3.65 L Hgb 11.2 L Hct 33.7 L MCV 92.3 MCH 30.7 MCHC 33.3 RDW 13.9 Plt Count 192 Neut % (Auto) 84.5 H Lymph % (Auto) 8.5 L [place] % (Auto) 6.9 Eos % (Auto) 0.0 L Baso % (Auto) 0.1 Neut # (Auto) 6700 Lymph # (Auto) 700 L [place] # (Auto) 500 Eos # (Auto) 0 Baso # (Auto) 0 Sodium 137 Potassium 4.6 Chloride 110 H Carbon Dioxide 25 BUN 30 H Creatinine 0.91 Estimated GFR > 60 BUN/Creatinine Ratio 33.0 H Glucose 133 H Calcium 8.7 Total Bilirubin 0.7 AST 94 H ALT 86 H Alkaline Phosphatase 80 Total Creatine Kinase 265 H NT-Pro-B Natriuret Pep 5570 H Total Protein 5.7 L Albumin 3.3 L Globulin 2.4 Albumin/Globulin Ratio 1.4 [facility] Medical History (Updated 12/02/23 @ 12:57 by Tracey Padron PA-C) Rosacea Diarrhea Murmur Hypothyroid Hypertension LBBB (left bundle branch block) Unilateral primary osteoarthritis, 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 Surgical History H/O right breast biopsy History of colonoscopy with polypectomy History of total hip arthroplasty Social History household members: none Smoking Status: Never smoker alcohol intake: current Assessment & Plan Post-op Postoperative Procedures: Procedures Operation Date: 12/03/23 11:00 Actual Procedure Side Surgeon p Closed Reduction Dislocated Hip Left Brian Singh MD Postoperative day: 1 Postoperative status narrative: Stable status post left hip closed reduction under general anesthesia for left hip posterior dislocation Postoperative plan narrative: Wedge pillow while in bed Weight-bearing as tolerated with strict posterior hip precautions Follow up with Dr. Mart 1-2 weeks. Disposition when medically stable per Medicine.
--- NOTE | 2023-12-04 12:10 | PT.IIE ---
Current Diagnoses Recurrent dislocation, left hip (12/01/23) Unspecified dislocation of unspecified hip, initial encounter (12/01/23) Surgery Performed Operation Date: 12/03/23 11:00 Actual Procedures p Closed Reduction Dislocated Hip(Left) - Brian Singh MD Surgical History (Last Reviewed 12/01/23 @ 14:25 by Eri Palencia MD) H/O right breast biopsy History of colonoscopy with polypectomy History of total hip arthroplasty Medical History (Last Reviewed 12/01/23 @ 14:25 by Eri Palencia MD) Diarrhea Hypertension Hypothyroid LBBB (left bundle branch block) Murmur Primary localized osteoarthrosis of pelvic region Rosacea Unilateral primary osteoarthritis, left hip Physical Therapy Inpatient Evaluation/Re-Eval M1 PT/OT-IP Prior Functional Status Start: 12/02/23 08:41 Freq: NEEDED Status: Active Protocol: Document 12/04/23 12:10 AB (Rec: 12/04/23 14:08 AB [id number]) Medical Review Prior Functional Status Medical History Reviewed Yes Communication able to make needs known Mobility and Gait pt stated that she was independent with all mobilities and ambulation without AD Social History Household Members none Living Arrangements House Number of Floors (Floors) One Floor Number of Stairs To Enter/Railing? 3 steps wide bilateral rails to enter and can only hold on to one rail at a time Home Environment High Toilet,Walk in Shower Home Equipment Hand Held Shower,Grab Bars Near Toilet,Grab Bars In Shower Additional Social History Comment pt has an adjustable bed M2 PT-IP Current Condition Start: 12/02/23 08:41 Freq: NEEDED Status: Active Protocol: Document 12/04/23 12:10 AB (Rec: 12/04/23 14:08 AB [id number]) Physical Therapy Current Condition Current Condition Evaluation Date 12/04/23 Treatment Diagnosis L ERIC dislocation s/p reduction; difficulty in walking Onset Date M3 PT-IP Subjective Start: 12/02/23 08:41 Freq: NEEDED Status: Active Protocol: Document 12/04/23 12:10 AB (Rec: 12/04/23 14:08 AB [id number]) Subjective Physical Therapy Visit Type Type Initial Evaluation Visit Start Time 12:10 Visit Stop Time 12:55 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 of 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 Physical Therapy Visit Comments Patient Comments agreeable to do PT Therapy Pain Assessment Pain When Pain Assessed At Rest Pain Present Pain Present Pain Reported Location Left Hip Intensity 5 Scale Used Numeric (0 - 10) Pain Management Techniques Distraction,Modification of Treatment,Re-positioning, Timing of Activity with Medications M4 PT-IP Mobility and Gait Start: 12/02/23 08:41 Freq: NEEDED Status: Active Protocol: Document 12/04/23 12:10 AB (Rec: 12/04/23 14:08 AB [id number]) PT-Bed Mobility Assessment Supine to Sit Supine to Sit Standby Assistance PT-Transfer Assessment Sit to and From Stand Sit to and from Stand Moderate Assistance,1 Person Assistance,Use of Upper Extremities Equipment Transfer Assistive Device Gait Belt,Front Wheeled Walker Orthotic/Prosthetic Devices or Brace: No Transfers Transfer Destination Chair Transfer Technique ambulated Transfer Ability Level of Assist Moderate Assistance,1 Person Assistance,Use of Upper Extremities Comments Mobility Comments pt supine in bed and agreeable to do PT. obtained PLOF and home set up from pt. educated pt regarding L posterior hip precautions. post-op folder provided and reviewed contents . pt stated that she had her L ERIC ~ 6 years ago. pt with h/o dislocations ~ 6 times per pt. Presumed posterior hip precautions due to h/o dislocations. pt able to recall precautions 2/3 after education. pt completed supine to sit SBA and cues. able to sit on EOB SBA. completed sit to stand mod A and cues for LE placement/ hip precautions and techniques. nurse in room and assisted pt with brief management. pt ambulated in room using FWW ~ 20 ft mod A and cues. presents with unsteady gait. pt agreed to sit on the chair. mod A for controlled descent on the chair. positioned pt on the chair. set up for lunch. call light and table placed within reach. Gait Assessment Gait Gait Assistance Required: Moderate Assistance,1 Person Assist Distance (Feet) 20 Able to Maintain Weight Bearing Status Yes During Gait Assistive Devices Assistive Device Gait Belt,Front Wheeled Walker Orthotic/Prosthetic Devices or Brace: No Gait Deviations General Gait Pattern Antalgic,Decreased Stride Length,Decreased Feet Clearance Factors Limiting Gait Function Factors Limiting Gait Function Decreased Activity Tolerance, Decreased Strength,Pain,Poor Balance,Poor Safety Awareness PT-Balance Assessment Sitting Balance and Reactions Static Sitting Balance Ability Good Dynamic Sitting Balance Ability Good Standing Balance and Reactions Static Standing Balance Ability Fair Dynamic Standing Balance Ability Fair Device Used FWW M5 PT-IP Objective Assessments Start: 12/02/23 08:41 Freq: NEEDED Status: Active Protocol: Document 12/04/23 12:10 AB (Rec: 12/04/23 14:08 AB [id number]) Orientation Orientation/Cognition Level of Alertness Alert Orientation Name,Place,Situation Language Function Ability No Deficits Noted Safety Awareness Decreased Safety Awareness Memory Description No Deficits Noted Gross Range of Motion Lower Extremity ROM Assessment Within Functional Limits Strength Lower Extremity Strength Assessment Left Impaired Hip 3-/5 Knee 4-/5 Coordination Assessment Gross Coordination Gross Coordination WNL Sensation Assessment Sensation Gross Sensation WNL Muscle Tone Muscle Tone WNL Yes M6 PT-IP Treatment Start: 12/02/23 08:41 Freq: NEEDED Status: Active Protocol: Document 12/04/23 12:10 AB (Rec: 12/04/23 14:08 AB [id number]) Physical Therapy Treatment Education Education Provided Precautions,Weight Bearing Status,Post-Op Packet,Safety M7 PT-IP Assessment and Plan Start: 12/02/23 08:41 Freq: NEEDED Status: Active Protocol: Document 12/04/23 12:10 AB (Rec: 12/04/23 14:08 AB [id number]) PT Summary Assessment and Plan Potential Rehabilitation Potential Fair Status of Condition at Evaluation Stable Summary Impairments Pain,ROM,Strength,Balance, Coordination,Sensation,Tone, Cognition,Bed Mobility, Transfers,Gait,Activity Tolerance Assessment Summary pt is a 68 y/o F who presented to the ED s/p fall sustaining a L hip dislocation requiring closed reducation under anaesthesia. pt with h/o hip dislocations x 6. pt had her L ERIC ~ 6 years ago per pt. pt requiring mod A with transfers and ambulation at this time and will need 15/03 assist. pt will benefit from SNF rehab to improve overall strength and mobility independence. Goals Bed Mobility Goal Standby Assistance Transfer Goal Standby Assistance,Front Wheeled Walker Gait Goal Standby Assistance,Front Wheel Walker Gait Distance 100 Other Goals improve bed mobility, transfers, ambulation using LRAD ~ 200 ft mod I up/down 3 steps 1 rail mod I Days to Meet Goals 10 Frequency of Treatment Frequency Of Treatment Once a Day Treatment Plan Physical Therapy Treatment Plan Bed Mobility Training,Transfer Training,Gait Training, Therapeutic Exercise,Balance Retraining,Post Op Education, Discharge Planning,Hot or Cold Pack,Neuromuscular Re-ed, Coordination Retraining,Manual Therapy Precautions Posterior Hip Precautions No Hip Flexion > 90 degrees,No Hip Internal Rotation,No Hip Adduction Weight Bearing Status Weight Bearing Status Weight Bear as Tolerated Allowed Weight Bearing Amount (enter % LLE WBAT or #) (%) Recommendations To Nursing Amount of Assist Needed 1 Person Assist Discharge Recommendations PT Discharge Recommendations SNF Rehab Transportation Needs at Discharge Wheelchair/Cabulance
--- NOTE | 2023-12-04 12:40 | CM.DPC ---
Addendum entered by Marie Otero R.N. 12/04/23 13:04: Was informed by nurse that P.T. recommends half-way. Brought in [facility] brochure, and Medicare choice list. Let her know as far as rehab, that the facilities that accept her [employer] are [facility] , not [facility]. She then indicated, well I then have [facility] for home care. Reminded her that [facility] is not a caregiving agency, only offers half-way and P.T, a couple of times a week. Stated, she really wants home. Asked her if she had someone to assist her at home, stated that she will reach out to her friend. Left her the Medicare Choice List in case she changes her mind about half-way, but have already completed orders and face to face, and faxed [facility]. Original Note: DCP Cont: Spoke to Dr. Michaels, patient most likely will discharge tomorrow, will need home health. She does have [employer], but was uncertain as to which agency accepts. Called [facility], Mirtha indicated that they do not accept, could not get in touch with Jan[facility]. Spoke to Liliana at [facility], confirmed that they do accept [employer]. Will fax over the orders. Gave Liliana the name of patient. Will order RN, P.T, and O.T. P: DCP to continue to follow. Patient most likely will discharge home tomorrow with [facility] services. Marie Otero RN/Managed Care Provider
--- NOTE | 2023-12-04 15:16 | PC.NURSE ---
Report taken from JIM Shannon. Pt transferred from room 228 to 211 in wheelchair, tolerated well. Pt A&Ox4, VSS, 1x assist with FWW. No c/o pain with transfer. Pt aware of and following precautions without reminders.
[2023-12-04] MEDS: ATORVASTATIN 20 MG TABLET 40 MG PO (21:12)
[2023-12-04] MEDS: SENNOSIDES 8.6 MG TABLET 17.2 MG PO (21:13)
[2023-12-04] MEDS: SERTRALINE 50 MG TABLET 25 MG PO (21:14)
[2023-12-05] VITALS (7 sets, daily range): BP systolic 110–128; BP diastolic 78–88; PULSE 65–92; RESP 16–17; TEMP 36.2–36.7; O2SAT 96–97
[2023-12-05] MEDS: LEVOTHYROXINE 125 MCG TABLET PO (06:03)
[2023-12-05 07:06] LABS: Alanine Aminotransferase 79 IU/L (<35); Albumin 2.8 g/dL (3.5-5.0); Alkaline Phosphatase 69 U/L (38-126); Aspartate Aminotransferase 55 IU/L (14-36); Bilirubin Total 0.8 mg/dL (0.2-1.3); Blood Urea Nitrogen 32 mg/dL (7-17); Calcium 8.7 mg/dL (8.4-10.2); Carbon Dioxide 24 mmol/L (22-32); Chloride 112 mmol/L (98-107); Creatine Kinase 149 U/L (30-135); Estimated Glomerular Filt Rate > 60 mL/min (>60); Globulin 2.7 g/dL (1.7-4.1); Glucose 92 mg/dL (80-110); HEMOLYSIS < 15 (0-50); Sodium 137 mmol/L (137-145); Total Protein 5.5 g/dL (6.3-8.2)
[2023-12-05] MEDS: lisinopriL 20 MG TABLET PO (08:42)
[2023-12-05] MEDS: FUROSEMIDE 20 MG TABLET PO (08:42)
[2023-12-05] MEDS: APIXABAN 5 MG TABLET PO ×2 (08:42→20:43)
[2023-12-05] MEDS: DOCUSATE 100 MG CAPSULE PO ×2 (08:42→20:43)
[2023-12-05] MEDS: METOPROLOL ER 50 MG TABLET 200 MG PO ×2 (08:46→20:42)
--- NOTE | 2023-12-05 09:07 | PM.PN.1 ---
Subjective Subjective Date Patient Seen: 12/05/23 Interval history: The pt reports feeling well. She has no concerns today. Her pain has been well controlled. She denies any other symptoms of concern. She is feeling ready to leave the hospital. She is quite adamant about returning home and not going to a rehab facility. Exam Vital Signs (past 8 hours): - 12/05/23 03:00 12/05/23 08:00 12/05/23 08:42 Temperature 97.6 F 97.5 F L Pulse Rate 88 79 80 Respiratory Rate 16 16 Blood Pressure 126/80 127/88 127/88 Pulse Oximetry 96 96 Oxygen Flow Rate 0 0 12/05/23 08:46 Temperature Pulse Rate 80 Respiratory Rate Blood Pressure 127/88 Pulse Oximetry Oxygen Flow Rate Fraction of Inspired Oxygen 28 SaO2/FiO2 Ratio 346 Oxygen Delivery Method [1031] Room Air Oxygen Delivery Method Room Air Oxygen Flow Rate 0 Narrative Exam Narrative: Gen: NAD, sitting comfortably in bed, appears well CV: irregularly irregular rhythm, normal rate, no murmurs Resp: clear to auscultation bilaterally Abd: soft, nontender, nondistended Ext: no edema Objective Labs 12/04/23 04:10 12/05/23 06:05 Labs: Laboratory Results - last 24 hr 12/05/23 06:05 Sodium 137 Potassium 4.0 Chloride 112 H Carbon Dioxide 24 BUN 32 H Creatinine 1.00 Estimated GFR > 60 BUN/Creatinine Ratio 32.0 H Glucose 92 Calcium 8.7 Total Bilirubin 0.8 AST 55 H ALT 79 H Alkaline Phosphatase 69 Total Creatine Kinase 149 H Total Protein 5.5 L Albumin 2.8 L Globulin 2.7 Albumin/Globulin Ratio 1.0 [facility] Medical History (Updated 12/02/23 @ 12:57 by Tracey Padron PA-C) Rosacea Diarrhea Murmur Hypothyroid Hypertension LBBB (left bundle branch block) Unilateral primary osteoarthritis, 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 Surgical History H/O right breast biopsy History of colonoscopy with polypectomy History of total hip arthroplasty Social History household members: none Smoking Status: Never smoker alcohol intake: current Assessment & Plan Assessment & Plan narrative: Pt is a 68yo woman with atrial fibrillation, hypothyroidism, HTN, chronic systolic CHF, and depression who presented after being found down at home after 24hrs. She had a dislocated left hip, rhabdomyolysis, acute kidney injury. 1) Dislocated left hip: POD #2 s/p closed reduction under anesthesia. Pain well controlled. - Continue management as per Ortho - PT saw patient yesterday, recommended SNF/rehab for placement - Oxycodone for pain control 2) Atrial fibrillation: Currently rate controlled - Continue home Eliquis, Metoprolol 3) Chronic systolic heart failure: Last EF 25-30%. Elevated BNP yesterday but no clinical evidence of fluid overload. - Continue to monitor respiratory status, if worsening will give IV Lasix 4) Rhabdomyolysis: CK trending down still 5) TRAN: Resolved, back to baseline 6) HTN: - Home antihypertensives resumed 7) Pneumonia: Meeting criteria for sepsis at admission. Respiratory status stable. Pt does detail potentially aspirating when she was down. - Continue Ceftriaxone and Azithromycin for full treatment course 8) Hypothyroidism: - Continue home Levothyroxine 9) Depression: Stable - Continue home Sertraline FEN: Normal diet DVT ppx: On Eliquis as above Code: Full Dispo: PT recommended SNF/rehab, but pt requesting discharge home. She believe she can arrange 24hr care at home. Discussed with her today that she is medically stable for discharge, so arrangement will need to be made quickly. She is planning to contact her brother and other caregiver today to make arrangements. Will also pursue SNF/rehab placement as a back-up plan. Pt will continue to work with PT while in the hospital as well.
--- NOTE | 2023-12-05 10:44 | PT.IPTN ---
Current Diagnoses Recurrent dislocation, left hip (12/01/23) Unspecified dislocation of unspecified hip, initial encounter (12/01/23) Surgery Performed Operation Date: 12/03/23 11:00 Actual Procedures p Closed Reduction Dislocated Hip(Left) - Brian Singh MD Physical Therapy Treatment Note M2 PT-IP Current Condition Start: 12/02/23 08:41 Freq: NEEDED Status: Active Protocol: Document 12/04/23 12:10 AB (Rec: 12/04/23 14:08 AB [id number]) Physical Therapy Current Condition Current Condition Evaluation Date 12/04/23 Treatment Diagnosis L ERIC dislocation s/p reduction; difficulty in walking Onset Date M3 PT-IP Subjective Start: 12/02/23 08:41 Freq: NEEDED Status: Active Protocol: Document 12/05/23 10:20 KS (Rec: 12/05/23 12:11 KS [id number]) Subjective Physical Therapy Visit Type Type Treatment Note Visit Start Time 10:20 Visit Stop Time 10:44 Number of [employer] Visits 1 Physical Therapy Visit Comments Patient Comments agreeable to do PT M4 PT-IP Mobility and Gait Start: 12/02/23 08:41 Freq: NEEDED Status: Active Protocol: Document 12/05/23 10:20 KS (Rec: 12/05/23 12:11 KS [id number]) PT-Transfer Assessment Sit to and From Stand Sit to and from Stand Contact Guard Assistance,1 Person Assistance,Use of Upper Extremities Equipment Transfer Assistive Device Gait Belt,Front Wheeled Walker Orthotic/Prosthetic Devices or Brace: No Transfers Transfer Destination Chair Transfer Technique ambulated Transfer Ability Level of Assist Contact Guard Assistance,1 Person Assistance,Use of Upper Extremities Comments Mobility Comments Pt in chair upon arrival. Reports she just confirmed that she will have assistance at home and would like to go home. Able to recall precautions this AM. CGA for sit<>Stand w/ FWW. Pt then amulated ~75 ft topractice stairs and completed 3 steps using bilateral hand rails and step to pattern. Pt then ambulated 75 ft back to room and returned to chair. Reveiwed LE strengthening, glute sets for hip stability. Pt left in chair w all needs in reach. Gait Assessment Gait Gait Assistance Required: Contact Guard Assist,1 Person Assist Distance (Feet) 150 Able to Maintain Weight Bearing Status Yes During Gait Assistive Devices Assistive Device Gait Belt,Front Wheeled Walker Orthotic/Prosthetic Devices or Brace: No Gait Deviations General Gait Pattern Antalgic,Decreased Stride Length,Decreased Feet Clearance Factors Limiting Gait Function Factors Limiting Gait Function Decreased Activity Tolerance, Decreased Strength,Poor Balance Comments Gait Comments Improved w/ gait, good use of FWW. Stair Climbing Assessment Evaluation Level of Assist On Stairs Contact Guard Assistance,1 Person Assistance Devices Stair Climbing Assistive Devices Left Railing,Right Railing Technique/Endurance Stair Climbing Direction Ascend and Descend Stair Climbing Technique Step to Step Number of Steps Climbed 3 Stair Climbing Set # Repetitions (reps) 1 Comments Stair Climbing Comments Pt able to complete 3 steps which is the same amount she has to enter home. Pt has bilateral rails but is unsure if she can reach both although she thinks so. Understands proper sequencing and feels capable to complete at home. Confirms she has a friend to shanika her. Does not wish to practice w/ SPC at this time. PT-Balance Assessment Sitting Balance and Reactions Static Sitting Balance Ability Good Dynamic Sitting Balance Ability Good Standing Balance and Reactions Static Standing Balance Ability Fair Dynamic Standing Balance Ability Fair Device Used FWW M5 PT-IP Objective Assessments Start: 12/02/23 08:41 Freq: NEEDED Status: Active Protocol: Document 12/04/23 12:10 AB (Rec: 12/04/23 14:08 AB [id number]) Orientation Orientation/Cognition Level of Alertness Alert Orientation Name,Place,Situation Language Function Ability No Deficits Noted Safety Awareness Decreased Safety Awareness Memory Description No Deficits Noted Gross Range of Motion Lower Extremity ROM Assessment Within Functional Limits Strength Lower Extremity Strength Assessment Left Impaired Hip 3-/5 Knee 4-/5 Coordination Assessment Gross Coordination Gross Coordination WNL Sensation Assessment Sensation Gross Sensation WNL Muscle Tone Muscle Tone WNL Yes M6 PT-IP Treatment Start: 12/02/23 08:41 Freq: NEEDED Status: Active Protocol: Document 12/05/23 10:20 KS (Rec: 12/05/23 12:11 KS [id number]) Physical Therapy Treatment Exercises Exercises Gluteal Sets Education Education Provided Precautions,Weight Bearing Status,Post-Op Packet,Safety M7 PT-IP Assessment and Plan Start: 12/02/23 08:41 Freq: NEEDED Status: Active Protocol: Document 12/05/23 10:20 KS (Rec: 12/05/23 12:11 KS [id number]) PT Summary Assessment and Plan Potential Rehabilitation Potential Fair Summary Impairments Pain,ROM,Strength,Balance, Coordination,Sensation,Tone, Cognition,Bed Mobility, Transfers,Gait,Activity Tolerance Progress Towards Goals Progressing Toward Goals Assessment Summary Pt showed improvement w/ mobility, activity tolerance, and awareness of precautions today. She ambulated 150 ft w/ FWW and completed 3 steps. She feels eager to return home and confirms she now has someone to assist her. If going home, pt will require 24 / assist and Home health services. Goals Bed Mobility Goal Standby Assistance Transfer Goal Standby Assistance,Front Wheeled Walker Gait Goal Standby Assistance,Front Wheel Walker Gait Distance 100 Other Goals improve bed mobility, transfers, ambulation using LRAD ~ 200 ft mod I up/down 3 steps 1 rail mod I Days to Meet Goals 10 Frequency of Treatment Frequency Of Treatment Once a Day Treatment Plan Physical Therapy Treatment Plan Bed Mobility Training,Transfer Training,Gait Training, Therapeutic Exercise,Balance Retraining,Post Op Education, Discharge Planning,Hot or Cold Pack,Neuromuscular Re-ed, Coordination Retraining,Manual Therapy Precautions Posterior Hip Precautions No Hip Flexion > 90 degrees,No Hip Internal Rotation,No Hip Adduction Weight Bearing Status Weight Bearing Status Weight Bear as Tolerated Allowed Weight Bearing Amount (enter % LLE WBAT or #) (%) Recommendations To Nursing Amount of Assist Needed 1 Person Assist Discharge Recommendations PT Discharge Recommendations Home with 24 Assist Available,Home Health,Home vs SNF Transportation Needs at Discharge Wheelchair/Cabulance
--- NOTE | 2023-12-05 11:23 | CM.DPNOTE ---
Addendum entered by DESTIN Constantino 12/05/23 13:11: ENGINEERING INSPECTION ASSISTANT emailed Obi from [facility] dc sum draft. SL Original Note: DCP note ENGINEERING INSPECTION ASSISTANT reviewed EMR. Per Xenia, pt cleared to dc today. Pt working on arranging caregivers at home. can dc today if caregivers arranged. ENGINEERING INSPECTION ASSISTANT entered room and introduced self and role. Pt excited to dc home. Pt has caregiver arranged to stay with her 15/03. Reports will be here in afternoon. agreeable to . Denies other CM needs. ENGINEERING INSPECTION ASSISTANT notified provider. Will put in dc order. ENGINEERING INSPECTION ASSISTANT emailed Obed at [facility] F2f, order, and PN from today. DC Sum pending. Plan: dc today with caregiver in home and [facility] to follow. Denies other CM needs. CM team will follow as needed. DESTIN Constantino
--- NOTE | 2023-12-05 12:10 | PM.DS.1 ---
History of Present Illness History of Present Illness Date Patient Seen: 12/05/23 Chief complaint: Modified Trauma Narrative: This is a very pleasant 60-year-old female who was found down after dislocating her left hip while drying off her leg as it was propped up on the toilet. This is the 6th time that she is dislocated this left hip and typically she can put it back in herself. She then fell on the ground and lives alone and was down for 24 hours. She was supposed to be doing something with a friend today and the friend came over and she was yelling for help. She was cold and using everything she could to keep herself warm. She was unable to move and unable to contact anyone. She denies any other injuries or hitting her head or loss of consciousness. Prior to this she was in her usual state of health. She presented to the emergency room by 911 in was found to have a dislocated left hip. They attempted to reduce it in the ER but were unsuccessful and Dr. Singh from Orthopedics was consulted. Apparently he decided that she was too weak to attempt to reduce it today and she was admitted to the hospital and they will take her to the OR to surgically reduce it in the a.m.. In the ER she was found to have rhabdomyolysis with a CK of 1200 and mild renal insufficiency as well as elevated white blood cell count and lactate with hypoxemia and tachycardia. She was admitted to the ICU for further treatment. Patient received 2 g of IV ceftriaxone and 500 mg of IV azithromycin to treat a suspected underlying pneumonia. Patient was given 1 L of IV fluids. Patient was given sedation in attempts to reduce her hip. Patient's last medications were on 11/30/2023 in the a.m. Discharge Providers Provider Date of admission: 12/01/23 14:51 Discharge Date: 12/05/23 Primary care physician: Kate Valera MD Consults: 12/01/23 12:50 Consult to Orthopedic Surgery Stat Comment: Consulting Provider: Brian Singh Reason for consultation: L HIP PROSTHETIC DISLOCATION Has provider been notified: Yes 12/01/23 18:08 Consult to Discharge Planning Routine Comment: Consult to Physical Therapy Evaluate & Treat Comment: Physician Instructions: Evaluate and Treat 12/03/23 12:18 Consult to Occupational Therapy Evaluate & Treat Comment: Physician Instructions: Evaluate and treat Consult to Physical Therapy Evaluate & Treat Comment: Weight-bearing as tolerated, strict posterior hip Physician Instructions: Evaluate and Treat, continue wedge pillow while in 12/04/23 12:44 Consult to Home Health Routine Comment: Reason For Exam: Home Health RN, P.T, O.T. Discharge provider: Mar Michaels MD Summary Hospital Course Discharge Diagnosis: Recurrent left hip dislocation currently not able to reduce Atrial fibrillation with RVR Heart failure reduced ejection fraction without obvious acute exacerbation Troponinemia Rhabdomyolysis Acute renal insufficiency Pneumonia with sepsis Hypothyroidism Depression Hospital Course: The pt presented after being found down at home for 24hrs, with rhabdomyolysis and recurrent left hip dislocation. The hip was unable to be replaced in the ED. Her lab work improved significantly with IV fluid boluses and continuous IVF. Her kidney function returned to baseline. The pt demonstrated no significant respiratory issues while in the hospital, however due to imaging at admission and labs consistent with sepsis, the pt was initiated on Ceftriaxone and Azithromycin in the ED. These were continued as an outpatient to complete a full course. The pt underwent closed reduction of her hip on 12/02. Postoperatively there were no complications, and the pts pain was excellently controlled. PT evaluated the pt and felt she was safe for d/c home with 24hr care. This was arranged, and the pt was discharged. Status at Discharge Cognitive/behavioral status at discharge: oriented Overall status at discharge: patient is progressing back to baseline Exam Vital Signs (past 8 hours): - 12/05/23 08:00 12/05/23 08:42 12/05/23 08:46 Temperature 97.5 F L Pulse Rate 79 80 80 Respiratory Rate 16 Blood Pressure 127/88 127/88 127/88 Pulse Oximetry 96 Oxygen Flow Rate 0 12/05/23 12:00 Temperature 97.1 F L Pulse Rate 65 Respiratory Rate 16 Blood Pressure 110/79 Pulse Oximetry 96 Oxygen Flow Rate 0 Fraction of Inspired Oxygen 28 SaO2/FiO2 Ratio 346 Oxygen Delivery Method [1031] Room Air Oxygen Delivery Method Room Air Oxygen Flow Rate 0 Narrative Exam Narrative: Gen: NAD, sitting comfortably in bed, appears well CV: irregularly irregular rhythm, normal rate, no murmurs Resp: clear to auscultation bilaterally Abd: soft, nontender, nondistended Ext: no edema Objective Labs 12/04/23 04:10 12/05/23 06:05 Labs: Laboratory Results - last 24 hr 12/05/23 06:05 Sodium 137 Potassium 4.0 Chloride 112 H Carbon Dioxide 24 BUN 32 H Creatinine 1.00 Estimated GFR > 60 BUN/Creatinine Ratio 32.0 H Glucose 92 Calcium 8.7 Total Bilirubin 0.8 AST 55 H ALT 79 H Alkaline Phosphatase 69 Total Creatine Kinase 149 H Total Protein 5.5 L Albumin 2.8 L Globulin 2.7 Albumin/Globulin Ratio 1.0 PFSH Medical History (Updated 12/02/23 @ 12:57 by Tracey Padron PA-C) Rosacea Diarrhea Murmur Hypothyroid Hypertension LBBB (left bundle branch block) Unilateral primary osteoarthritis, 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 Surgical History H/O right breast biopsy History of colonoscopy with polypectomy History of total hip arthroplasty Social History household members: none Smoking Status: Never smoker alcohol intake: current Discharge Plan Discharge Plan Patient Disposition: Home Health Service Discharge orders & Medications Prescriptions: New docusate sodium 100 mg Capsule 100 mg PO BID Qty: 30 0RF oxycodone 5 mg Tablet 5 mg PO Q3H PRN (Reason: Pain, Moderate (4-6)) Qty: 40 0RF azithromycin 250 mg tablet 250 mg PO DAILY Qty: 5 0RF cefuroxime axetil 500 mg tablet 500 mg PO BID Qty: 10 0RF Continued sertraline 25 MG tablet 25 mg PO QDAY Qty: 0 meloxicam 15 mg Tablet 15 mg PO DAILY PRN (Reason: Pain) metoprolol succinate 100 mg Tablet Extended Release 24 Hr 200 mg PO BID levothyroxine 125 mcg Tablet 125 mcg PO DAILY atorvastatin 40 mg Tablet 40 mg PO DAILY lisinopril 20 mg Tablet 20 mg PO DAILY furosemide 20 mg tablet 20 mg PO DAILY Eliquis 5 mg Tablet 5 mg PO BID Follow up/Referrals: Kate Valera MD [Primary Care Provider] - 2 Weeks Diet/Activity/Treatments Diet: Diet as Tolerated and Regular Skin/Wound/Dressing Care Report to your healthcare provider any signs of infection, such as:: chills, fever and increased pain Visit Report/Discharge Packet Stand Alone Forms: Patient Portal/API, Stroke Signs & Symptoms Discharge Data Primary Care Provider: Kate Valera
[2023-12-05] MEDS: ACETAMINOPHEN 325 MG TABLET 650 MG PO (19:58)
[2023-12-05] MEDS: ATORVASTATIN 20 MG TABLET 40 MG PO (20:43)
[2023-12-05] MEDS: SERTRALINE 50 MG TABLET 25 MG PO (20:43)
[2023-12-05] MEDS: SENNOSIDES 8.6 MG TABLET 17.2 MG PO (20:43)
[2023-12-06] VITALS: BP 97/52; PULSE 60; RESP 17; TEMP 36.1; O2SAT 98
[2023-12-06 00:40] VITALS: BP 97/52
[2023-12-06 04:00] VITALS: BP 115/73; PULSE 74; RESP 19; TEMP 36.1; O2SAT 98
[2023-12-06] MEDS: LEVOTHYROXINE 125 MCG TABLET PO (06:11)
--- NOTE | 2023-12-06 07:11 | PM.PNPO.1 ---
Subjective Subjective Date Patient Seen: 12/06/23 Time Patient Seen: 07:11 Interval history: Pt resting comfortably in bed, reports working w/ PT without difficulty. Plan is for discharge to SNF prior to homegoing. Exam Vital Signs (past 8 hours): - 12/06/23 00:00 12/06/23 00:40 12/06/23 04:00 Temperature 97.0 F L 97.0 F L Pulse Rate 60 74 Respiratory Rate 17 19 Blood Pressure 97/52 L 97/52 L 115/73 Pulse Oximetry 98 98 Fraction of Inspired Oxygen 28 SaO2/FiO2 Ratio 346 Oxygen Delivery Method [1031] Room Air Oxygen Delivery Method Room Air Oxygen Flow Rate 0 Narrative Exam Narrative: 5/5 strength in hip flexors, quadriceps, hamstrings, DF, PF, EHL on left. Sensation to light touch intact throughout LLE. Calf soft, compressible, nontender. Objective Labs 12/04/23 04:10 12/05/23 06:05 PFSH Medical History (Updated 12/02/23 @ 12:57 by Tracey Padron PA-C) Rosacea Diarrhea Murmur Hypothyroid Hypertension LBBB (left bundle branch block) Unilateral primary osteoarthritis, 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 Surgical History H/O right breast biopsy History of colonoscopy with polypectomy History of total hip arthroplasty Social History household members: none Smoking Status: Never smoker alcohol intake: current Assessment & Plan Post-op Assessment and plan (1) Dislocation, hip closed: Assessment and Plan narrative: S/p closed reduction of left hip by Dr Mart. This hip was originally replaced by Dr Merly Christianson in 2018. D/w pt that she does not need to follow up any sooner with our office than about 6-8 weeks unless she has problems prior to this. She can follow up w/ Dr Mart or Dr Christianson. Posterior hip precautions x 6 weeks, weightbearing as tolerated on left leg. VTE prophylaxis not indicated for closed reduction, but she is on Eliquis chronically for a fib, which can continue. Postoperative Procedures: Procedures Operation Date: 12/03/23 11:00 Actual Procedure Side Surgeon p Closed Reduction Dislocated Hip Left Brian Singh MD Postoperative day: 3
[2023-12-06 08:00] VITALS: BP 121/76; PULSE 81; RESP 16; TEMP 36.1; O2SAT 97
--- NOTE | 2023-12-06 08:31 | PM.DS.1 ---
History of Present Illness History of Present Illness Date Patient Seen: 12/06/23 Time Patient Seen: 08:31 Date of Onset of Symptoms: 11/30/23 Chief complaint: Modified Trauma Narrative: This is a very pleasant 60-year-old female who was found down after dislocating her left hip while drying off her leg as it was propped up on the toilet. This is the 6th time that she is dislocated this left hip and typically she can put it back in herself. She then fell on the ground and lives alone and was down for 24 hours. She was supposed to be doing something with a friend today and the friend came over and she was yelling for help. She was cold and using everything she could to keep herself warm. She was unable to move and unable to contact anyone. She denies any other injuries or hitting her head or loss of consciousness. Prior to this she was in her usual state of health. She presented to the emergency room by 911 in was found to have a dislocated left hip. They attempted to reduce it in the ER but were unsuccessful and Dr. Singh from Orthopedics was consulted. Apparently he decided that she was too weak to attempt to reduce it today and she was admitted to the hospital and they will take her to the OR to surgically reduce it in the a.m.. In the ER she was found to have rhabdomyolysis with a CK of 1200 and mild renal insufficiency as well as elevated white blood cell count and lactate with hypoxemia and tachycardia. She was admitted to the ICU for further treatment. Patient received 2 g of IV ceftriaxone and 500 mg of IV azithromycin to treat a suspected underlying pneumonia. Patient was given 1 L of IV fluids. Patient was given sedation in attempts to reduce her hip. Patient's last medications were on 11/30/2023 in the a.m. Past medical history: 1. AFib with RVR with difficulty controlling her rate. Currently on metoprolol 200 mg extended release twice daily 2. Left bundle branch block 3. Chronic systolic heart failure 4. Essential hypertension 5. Hypothyroidism 6. Heart failure with reduced ejection fraction. Last echo showed EF of 25-30% on 08/30/2023. It is thought that this is nonischemic. 1023 nuclear stress test was low risk normal study 7. Hyperlipidemia 8. Depression stable on low-dose sertraline 9. Stage 3 chronic kidney disease Medications include atorvastatin 20 mg daily, Eliquis, metoprolol XL 200 mg twice daily, levothyroxine 100 mcg daily, lisinopril 20 mg daily Allergies sulfa, nickel, latex Past surgical history: 1. Right total hip replacement 2014 2. Left total hip replacement by Dr. Christianson Social history: Patient is retired but still works part-time at the [employer] that she attends. Patient is single but has supportive family and friends in the area Health related behavior: Patient has never been a smoker, is fairly active, does not use alcohol or illicit drugs Family history: Degenerative joint disease No family history of AFib Melanoma in brother Renal cancer in mother Alzheimer's disease in father as well as hypertension Colon cancer in brother Review of systems: Patient denies any shortness a breath or cough or palpitations or syncope or lightheadedness or dizziness Patient denies any fever or chills or rashes Patient denies any unintentional weight loss or weight gain Patient denies any worsening depression or anxiety Patient denies any GI complaints change in bowel bladder etc. Discharge Providers Provider Date of admission: 12/01/23 14:51 Discharge Date: 12/06/23 Primary care physician: Kate Valera MD Consults: 12/01/23 12:50 Consult to Orthopedic Surgery Stat Comment: Consulting Provider: Brian Singh Reason for consultation: L HIP PROSTHETIC DISLOCATION Has provider been notified: Yes 12/01/23 18:08 Consult to Discharge Planning Routine Comment: Consult to Physical Therapy Evaluate & Treat Comment: Physician Instructions: Evaluate and Treat 12/03/23 12:18 Consult to Occupational Therapy Evaluate & Treat Comment: Physician Instructions: Evaluate and treat Consult to Physical Therapy Evaluate & Treat Comment: Weight-bearing as tolerated, strict posterior hip Physician Instructions: Evaluate and Treat, continue wedge pillow while in 12/04/23 12:44 Consult to Home Health Routine Comment: Reason For Exam: Home Health RN, P.T, O.T. Discharge provider: Kate Valera MD Summary Hospital Course Discharge Diagnosis: Recurrent left hip dislocation currently not able to reduce Atrial fibrillation with RVR Heart failure reduced ejection fraction without obvious acute exacerbation Troponinemia Rhabdomyolysis Acute renal insufficiency Pneumonia with sepsis Hypothyroidism Depression Hospital Course: Discharge Diagnosis: Recurrent left hip dislocation currently not able to reduce Atrial fibrillation with RVR Heart failure reduced ejection fraction without obvious acute exacerbation Troponinemia Rhabdomyolysis Acute renal insufficiency Pneumonia with sepsis Hypothyroidism Depression Hospital Course: The pt presented after being found down at home for 24hrs, with rhabdomyolysis and recurrent left hip dislocation. The hip was unable to be replaced in the ED. Her lab work improved significantly with IV fluid boluses and continuous IVF. Her kidney function returned to baseline. The pt demonstrated no significant respiratory issues while in the hospital, however due to imaging at admission and labs consistent with sepsis, the pt was initiated on Ceftriaxone and Azithromycin in the ED. These were continued as an outpatient to complete a full course. The pt underwent closed reduction of her hip on 12/02. Postoperatively there were no complications, and the pts pain was excellently controlled. PT evaluated the pt and felt she was safe for d/c home with 24hr care. This was arranged, and the pt was discharged. Patient will be discharged home on her outpatient medications. She will follow up as scheduled with ortho and with Cardiology. I will see her in the office in 2 weeks. She will have 24 hour care at home with home health and friends. She will do home PT and OT. Patient will be discharged home off of medications. Based on pharmacy records it looks like she only received 3 days of antibiotics. Her white count came down rapidly and her oxygen requirement resolved quickly. Will monitor closely. Status at Discharge Cognitive/behavioral status at discharge: oriented and at baseline, oriented Functional status at discharge: uses cane/walker Overall status at discharge: patient is progressing back to baseline Exam Vital Signs (past 8 hours): - 12/06/23 00:40 12/06/23 04:00 Temperature 97.0 F L Pulse Rate 74 Respiratory Rate 19 Blood Pressure 97/52 L 115/73 Pulse Oximetry 98 Fraction of Inspired Oxygen 28 SaO2/FiO2 Ratio 346 Oxygen Delivery Method [1031] Room Air Oxygen Delivery Method Room Air Oxygen Flow Rate 0 Narrative Exam Narrative: Afebrile vital signs are stable Patient is alert and oriented no apparent distress HEENT is unremarkable Neck: Supple without adenopathy Chest: Clear to auscultation without wheezes rhonchi or crackles Cor: Irregularly irregular rhythm at a well-controlled rate Abdomen: Positive bowel sounds, soft, nontender, nondistended, no hepatosplenomegaly Extremities no edema Objective Labs 12/04/23 04:10 12/05/23 06:05 [facility] Medical History (Updated 12/02/23 @ 12:57 by Tracey Padron PA-C) Rosacea Diarrhea Murmur Hypothyroid Hypertension LBBB (left bundle branch block) Unilateral primary osteoarthritis, 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 Surgical History H/O right breast biopsy History of colonoscopy with polypectomy History of total hip arthroplasty Social History household members: none Smoking Status: Never smoker alcohol intake: current Discharge Assessment & Plan Assessment and Plan Assessment: Discharge Diagnosis: Recurrent left hip dislocation currently not able to reduce Atrial fibrillation with RVR Heart failure reduced ejection fraction without obvious acute exacerbation Troponinemia Rhabdomyolysis Acute renal insufficiency Pneumonia with sepsis Hypothyroidism Depression Hospital Course: The pt presented after being found down at home for 24hrs, with rhabdomyolysis and recurrent left hip dislocation. The hip was unable to be replaced in the ED. Her lab work improved significantly with IV fluid boluses and continuous IVF. Her kidney function returned to baseline. The pt demonstrated no significant respiratory issues while in the hospital, however due to imaging at admission and labs consistent with sepsis, the pt was initiated on Ceftriaxone and Azithromycin in the ED. These were continued as an outpatient to complete a full course. The pt underwent closed reduction of her hip on 12/02. Postoperatively there were no complications, and the pts pain was excellently controlled. PT evaluated the pt and felt she was safe for d/c home with 24hr care. This was arranged, and the pt was discharged. Patient will be discharged home on her outpatient medications. She will follow up as scheduled with ortho and with Cardiology. I will see her in the office in 2 weeks. She will have 24 hour care at home with home health and friends. She will do home PT and OT. Patient will be discharged home off of medications. Based on pharmacy records it looks like she only received 3 days of antibiotics. Her white count came down rapidly and her oxygen requirement resolved quickly. Will monitor closely. Also patient does not need pain medications 35 minute spent in discharging patient Discharge Plan Discharge Plan Patient Disposition: Home Health Service Discharge orders & Medications Prescriptions: New docusate sodium 100 mg Capsule 100 mg PO BID Qty: 30 0RF oxycodone 5 mg Tablet 5 mg PO Q3H PRN (Reason: Pain, Moderate (4-6)) Qty: 40 0RF azithromycin 250 mg tablet 250 mg PO DAILY Qty: 5 0RF cefuroxime axetil 500 mg tablet 500 mg PO BID Qty: 10 0RF Continued sertraline 25 MG tablet 25 mg PO QDAY Qty: 0 meloxicam 15 mg Tablet 15 mg PO DAILY PRN (Reason: Pain) metoprolol succinate 100 mg Tablet Extended Release 24 Hr 200 mg PO BID levothyroxine 125 mcg Tablet 125 mcg PO DAILY atorvastatin 40 mg Tablet 40 mg PO DAILY lisinopril 20 mg Tablet 20 mg PO DAILY furosemide 20 mg tablet 20 mg PO DAILY Eliquis 5 mg Tablet 5 mg PO BID Follow up/Referrals: Damien Mart MD [Physician] - 6 Weeks (F/u w/ Dr Mart in 6 weeks for repeat imaging.) Kate Valera MD [Primary Care Provider] - 2 Weeks Diet/Activity/Treatments Diet: Diet as Tolerated and Regular Activity: Weightbearing as tolerated. Strict posterior hip precautions x 6 weeks. Wedge pillow/hip abduction pillow between legs when in bed. Skin/Wound/Dressing Care Report to your healthcare provider any signs of infection, such as:: chills, fever and increased pain Visit Report/Discharge Packet Stand Alone Forms: Patient Portal/API, Stroke Signs & Symptoms Discharge Data Primary Care Provider: Kate Valera
[2023-12-06 08:37] VITALS: BP 115/73; PULSE 74
[2023-12-06] MEDS: DOCUSATE 100 MG CAPSULE PO (08:37)
[2023-12-06] MEDS: METOPROLOL ER 50 MG TABLET 200 MG PO (08:37)
[2023-12-06] MEDS: APIXABAN 5 MG TABLET PO (08:37)
[2023-12-06] MEDS: FUROSEMIDE 20 MG TABLET PO (08:38)
[2023-12-06] MEDS: lisinopriL 20 MG TABLET PO (08:38)
[2023-12-06] MEDS: ACETAMINOPHEN 325 MG TABLET 650 MG PO (08:38)
--- NOTE | 2023-12-06 09:38 | CM.DPNOTE ---
DCP Note BILLING CUSTOMER SERVICE REPRESENTATIVE reviewed EMR. Pt was set to dc home yesterday but pt did not leave. BILLING CUSTOMER SERVICE REPRESENTATIVE met with pt and friend Lindsey Benito in room. Pt reports there was an issue getting her keys(?) and CG availability yesterday. But friend and pt confirm all is set today. Pt will dc home after her shower here. Pt and friend asked to add bath aide to the HH order. BILLING CUSTOMER SERVICE REPRESENTATIVE notified Liliana at [facility] via email of new dc sum and adding bath aide. Plan: pt to dc home with friend/[facility] . CM to follow closely. DESTIN Constantino
--- NOTE | 2023-12-06 10:51 | PC.NURSE ---
Patient is A&OX4, VSS, afebrile on RA. She reports pain is manageable with tylenol and she is ambulatory to with SBA. MD Valera at bedside clears patient for discharge today and states she does not need to leaf size picker any prescriptions previously sent to [facility]. Patient verbalizes understanding of meds, activity limitations, s/sx of infection as well as follow up appointment with MD Mart. She is escorted via w/ch to private vehicle with her friend this a.m. and all of her belongings at 1015 a.m.
== END 2023-12-06 10:16 | disposition home health service (06) | DRG 871 ==
LOC: ED 14:02 → AC 14:52 → ICU 15:54 → AC 12-04 14:13
PROVIDERS: Family Medicine; Orthopaedic Surgery Orthopaedic Surgery of the Spine; Admitting Provider Family Medicine; Emergency Provider Emergency Medicine; PCP Family Medicine; Referring Provider Emergency Medicine; Visit Provider Family Medicine
PROC: 0SWBXJZ Revision of Synthetic Substitute in Left Hip Joint, External Approach (ICD-10-PCS; principal; 2023-12-03 11:00)
DX: A41.9 Sepsis, unspecified organism (principal); J18.9 Pneumonia, unspecified organism; T84.021A Dislocation of internal left hip prosthesis, initial encounter; I50.22 Chronic systolic (congestive) heart failure; M62.82 Rhabdomyolysis; N17.9 Acute kidney failure, unspecified; I13.0 Hypertensive heart and chronic kidney disease with heart failure and stage 1 through stage 4 chronic kidney disease, or unspecified chronic kidney disease; N18.4 Chronic kidney disease, stage 4 (severe); Y83.1 Surgical operation with implant of artificial internal device as the cause of abnormal reaction of the patient, or of later complication, without mention of misadventure at the time of the procedure; Z79.890 Hormone replacement therapy; Z88.2 Allergy status to sulfonamides; E03.9 Hypothyroidism, unspecified; F32.A Depression, unspecified; Y93.E1 Activity, personal bathing and showering; W01.0XXA Fall on same level from slipping, tripping and stumbling without subsequent striking against object, initial encounter
CPT/HCPCS: 27265; 36415; 36600; 70450; 71045; 73501; 73502; 80053; 82550; 82805; 83605; 83735; 83880; 84484; 85025; 85610; 85730; 87040; 87633; 87797; 93005; 93010; 96365; 96366; 96367; 96375; 97116; 97162; 97530; 99152; 99232; 99285; 99291; J0696; J1100; J2060; J2270; J2405; J2704; J3010; J3490

== ENCOUNTER → 2024-04-14 10:40 | Outpatient (CLI) | payer OTHER, SELFPAY ==
[2023-12-01 14:52] VITALS: BMI 36.6
--- NOTE | 2024-04-14 10:42 | DI.CT.S_ITS ---
PROCEDURE: CT HIP LEFT WITHOUT CON INDICATIONS: EVAL ANTERIOR REVISION OF LEFT HIP TECHNIQUE: Noncontrast 3 mm axial sections acquired through the bony pelvis. Additional 3 mm axial sections acquired through the symptomatic hip joint, with coronal and sagittal reformats. COMPARISON: [facility], CR, XR HIP W PEL IF DONE LT 2V, 12/01/2023, 10:41. [facility] [place], CR, XR PELVIS WITH LATERAL HIP LEFT, 03/08/2024, 8:56. FINDINGS: Image quality: Excellent. Bones: Moderate lower lumbar facet arthropathy. The sacrum is intact. Bilateral sacroiliac joints are grossly unremarkable. Status post right total hip arthroplasty, in near anatomic alignment. No hardware complication. Status post left total hip arthroplasty, in near anatomic alignment. There is moderate subchondral cystic changes versus osteolysis of the left superior acetabulum. Soft tissues: Mild calcification of the distal abdominal aorta. Moderate fatty atrophy of the left gluteal minimus in the left gluteus medius. IMPRESSION: Status post bilateral total hip arthroplasty. Moderate subchondral cystic changes versus osteolysis of the left superior acetabulum. Dictated by: Kylee Puentes M.D. on 04/14/2024 at 14:55 Approved by: Kylee Puentes M.D. on 04/14/2024 at 15:06
== END ==
PROVIDERS: PCP Family Medicine; Referring Provider Orthopaedic Surgery; Visit Provider Orthopaedic Surgery
DX: T84.021A Dislocation of internal left hip prosthesis, initial encounter (principal); M47.816 Spondylosis without myelopathy or radiculopathy, lumbar region; Z96.641 Presence of right artificial hip joint
CPT/HCPCS: 73700

== ENCOUNTER → 2024-04-26 15:32 | Outpatient (CLI) | payer OTHER, SELFPAY ==
[2023-12-01 14:52] VITALS: BMI 36.6
--- NOTE | 2024-04-26 15:46 | EKG_ITS ---
[facility] [address] [place] [address] Test Date: 2024-04-26 Pat Name: Amada Christianson Department: [facility] Room: Gender: Female Liner Man: ONELIA : 1955 Requested By: Order Number: [id number] Reading MD: Ambrose Montelongo MD Measurements Intervals [place] Rate: 91 P: AK: QRS: 103 QRSD: 140 T: 0 QT: 408 QTc: 501 Interpretive Statements Atrial fibrillation Rightward axis Nonspecific intraventricular block Minimal voltage criteria for LVH, may be normal variant ( Gorge product ) Cannot rule out Anterior infarct , age undetermined Little change (except for HR) from previous Electronically Signed On 04-27-2024 7:37:24 PDT by Ambrose Montelongo MD
== END ==
LOC: RESP 15:32
PROVIDERS: PCP Family Medicine; Referring Provider Orthopaedic Surgery; Visit Provider Orthopaedic Surgery
DX: Z01.818 Encounter for other preprocedural examination (principal)
CPT/HCPCS: 93005; 93010

== ENCOUNTER → 2024-10-12 16:20 | Outpatient (CLI) | payer OTHER, SELFPAY ==
[2023-12-01 14:52] VITALS: BMI 36.6
--- NOTE | 2024-10-12 16:23 | DI.MG.S_ITS ---
BILATERAL DIGITAL SCREENING MAMMOGRAM 3D/2D WITH CAD: 10/12/2024 CLINICAL: Routine screening. Comparison is made to exams dated: 10/09/2023 mammogram, 09/12/2022 mammogram, and 09/11/2021 mammogram - [facility]. There are scattered areas of fibroglandular density (category b / 25%-50% glandular tissue). Current study was also evaluated with a Computer Aided Detection (CAD) system. There is a biopsy clip in the right breast. No significant masses, calcifications, or other findings are seen in either breast. There has been no significant interval change. IMPRESSION: NEGATIVE There is no mammographic evidence of malignancy. A 1 year screening mammogram is recommended. Based on the Tyrer Cuzick model (a risk assessment model) the patient's lifetime risk is 4.3% and her 10 year risk is 2.5%. According to the ACR, ACS, and NCCN guidelines, an annual breast MRI exam along with mammogram is recommended if the patient's lifetime risk is 20% or greater. This exam was interpreted at Station ID: [id number]. NOTE: For mammograms, a report in lay terms will be sent to the patient. Approximately 15% of breast malignancies will not be visualized mammographically. In the management of a palpable breast mass, a negative mammogram must not discourage biopsy of a clinically suspicious lesion. Electronically Signed By: Veronica concepcion/tao:10/13/2024 14:35:20 copy to: MICHAEL SANTIAGO letter sent: Normal Exam ACR BI-RADS Category 1: Negative
== END ==
LOC: MAMMO 16:21
PROVIDERS: PCP Family Medicine; Referring Provider Family Medicine; Visit Provider Family Medicine
DX: Z12.31 Encounter for screening mammogram for malignant neoplasm of breast (principal)
CPT/HCPCS: 77063; 77067

== ENCOUNTER → 2024-11-15 13:12 | Outpatient (CLI) | payer OTHER, SELFPAY ==
[2023-12-01 14:52] VITALS: BMI 36.6
--- NOTE | 2024-11-15 13:14 | DI.ECHO.S_ITS ---
[facility] : : [address] : : [place] : : [id number] : : Phone: [phone] Echocardiogram Report + + :Name: NOA ROBLES Study Date: 11/15/2024 Height: 66 in : :[facility] ReadingLocation: Weight: 237 lb : : Gender: Female BSA: 2.1 m2 : :: 1955 Age: 69 yrs BP: 109/73 mmHg: :Reason For Study: CHRONIC SYSTOLIC HEART FAILURE : :Ordering Physician: ISAEL, : :KENDRICK Performed By: Eric Rich : :Referring: KENDRICK DU : + + Interpretation Summary 1) Severely dilated left ventricle with severly reduced systolic function (EF 15-20%) 2) Normal right ventricular size with moderately reduced function. 3) The left atrium is severely dilated. The right atrium is moderately dilated. 4) There is mild mitral regurgitation. 5) The right ventricular systolic pressure is estimated to be at least 45 mmHg based on an estimated right atrial pressure of 3 mm Hg. 6) Compared to the Echo done 05/12/2024, no significant change. Procedure: A two-dimensional transthoracic echocardiogram with color flow and Doppler was performed. The study quality was technically adequate. Comparison is made with the echocardiogram of 05/12/2024. The patient was in atrial fibrillation with heart rates between 76-108 bpm during the exam. Left Ventricle: The left ventricle is severely dilated. Left ventricular wall thickness is mildly increased. There is no ventricular septal defect visualized. The ejection fraction is estimated to be 15-20%. There is severe global hypokinesis of the left ventricle. Septal motion is consistent with conduction abnormality. Diastolic function could not be accurately assessed due to atrial fibrillation. Right Ventricle: The right ventricle is normal size. Right ventricular systolic function is moderately reduced. Atria: The left atrium is severely dilated. The right atrium is moderately dilated. There is no Doppler evidence for an interatrial shunt. Mitral Valve: There is mild mitral annular calcification. The mitral valve leaflets appear normal. There is no evidence of stenosis, fluttering, or prolapse. There is mild mitral regurgitation. Aortic Valve: The aortic valve is trileaflet. The aortic valve opens well. There is no aortic valve stenosis. There is trace aortic regurgitation. Tricuspid Valve: The tricuspid valve leaflets are thin and pliable. There is mild tricuspid regurgitation. The right ventricular systolic pressure is estimated to be at least 45 mmHg based on an estimated right atrial pressure of 3 mm Hg. Pulmonic Valve: The pulmonic valve leaflets are thin and pliable; valve motion is normal. There is trace pulmonic regurgitation. Great Vessels: The aortic root is normal size. The ascending aorta is at the upper limits of normal in size. The pulmonary artery is normal size. The IVC is of normal diameter and collapses greater than 50% with a sniff. This suggests a low right atrial pressure of 3 mm Hg. Pericardium/ Pleura There is no pericardial effusion. There is no pleural effusion. MMode/2D Measurements & Calculations LVIDd: 6.5 cm LVOT diam: 1.8 cm LVIDs: 5.9 cm Ao root diam: 3.4 cm FS: 9.1 % asc Aorta Diam: 3.7 cm EPSS: 1.7 cm IVSd: 1.2 cm LVPWd: 0.97 cm LV moore. diameter/BSA (cm/m^2): 3.0 LV sys. diameter/BSA (cm/m^2): 2.8 LA A2 area: 31.6 cm2 RA long axis: 6.7 cm LA A4 area: 31.3 cm2 RA area: 28.5 cm2 LA length (vol): 7.0 cm RA vol: 102.4 ml LA vol: 119.6 ml RA : 47.6 ml/m2 LA vol index: 55.6 ml/m2 IVC diam: 1.7 cm RVD1 (basal): 3.4 cm RVD2 (mid): 2.5 cm TAPSE: 1.2 cm Doppler Measurements & Calculations Ao V2 max: 115.7 cm/sec LVOT Max Laci: 89.7 cm/sec Ao V2 mean: 86.2 cm/sec LV V1 max P.2 mmHg Ao max P.4 mmHg LV V1 VTI: 14.4 cm Ao mean P.2 mmHg KIMMIE(I,D): 2.0 cm2 Ao V2 VTI: 18.7 cm KIMMIE(V,D): 2.0 cm2 sev ratio: 0.77 KIMMIE indexed to BSA (cm^2/m^2): 0.93 MV E max laci: 94.6 cm/sec TR max laci: 323.8 cm/sec MV A max laci: 18.8 cm/sec TR max P.9 mmHg MV E/A: 5.0 PA V2 max: 55.9 cm/sec Med Peak E' Laci: 4.8 cm/sec PA V2 mean: 28.6 cm/sec E/E' med: 19.6 PA mean P.44 mmHg Lat Peak E' Laci: 8.2 cm/sec PA pr(Accel): 25.9 mmHg E/E' lat: 11.5 E/e' average: 15.5 MV dec time: 0.15 sec MR ERO: 0.11 cm2 MR PISA: 1.3 cm2 SV(LVOT): 37.4 ml MR flow rate: 48.2 cm3/sec MR PISA radius: 0.46 cm Reading Physician:04:13 PM
== END ==
LOC: ECHO 13:13
PROVIDERS: PCP Family Medicine; Referring Provider Internal Medicine Cardiovascular Disease; Visit Provider Internal Medicine Cardiovascular Disease
DX: I08.1 Rheumatic disorders of both mitral and tricuspid valves (principal); I50.22 Chronic systolic (congestive) heart failure
CPT/HCPCS: 93306